=== PATIENT | male | born 1990 | race Caucasian/White ===

== ENCOUNTER 2021-06-09 12:10 | Emergency (ER) | payer OTHER ==
[~2021-06-09] VITALS: Ht 175.3 cm; Wt 161.5 kg
[2021-06-09 17:19] LABS: BASO # 0.1 10^3/uL (0.0-0.2); BASO % 0.5 % (0.0-1.0); EOS # 0.1 10^3/uL (0.0-0.5); EOS % 0.5 % (0.0-3.0); HEMATOCRIT 48.3 % (42.0-52.0); LYMPH # 3.5 10^3/uL (1.5-5.0); MEAN CORPUSCULAR HEMOGLOBIN 31.1 pg (27.0-33.0); MEAN CORPUSCULAR HGB CONC 33.1 g/dl (32.0-36.5); MEAN CORPUSCULAR VOLUME 93.8 fl (80.0-96.0); MONO # 0.5 10^3/uL (0.0-0.8); MONO % 4.9 % (2.0-8.0); NEUTROPHILS # 5.1 10^3/uL (1.5-8.5); NEUTROPHILS % 55.8 % (36.0-66.0); PLATELET COUNT, AUTOMATED 196 10^3/uL (150-450); RED BLOOD COUNT 5.15 10^6/uL (4.30-6.10); WHITE BLOOD COUNT 9.1 10^3/uL (4.0-10.0)
[2021-06-09 17:23] LABS: AMORPHOUS SEDIMENT SMALL (NEGATIVE); APPEARANCE, URINE CLOUDY (CLEAR); BACTERIA, URINE AUTO NEGATIVE (NEGATIVE); BILIRUBIN, URINE AUTO NEGATIVE (NEGATIVE); BLOOD, URINE BLOOD 1+ (NEGATIVE); COLOR, URINE YELLOW (YELLOW); GLUCOSE, URINE (UA) AUTO NEGATIVE (NEGATIVE); KETONE, URINE AUTO NEGATIVE (NEGATIVE); LEUKOCYTE ESTERASE, URINE AUTO NEGATIVE (NEGATIVE); MUCUS, URINE SMALL (NEGATIVE); NITRITE, URINE AUTO NEGATIVE (NEGATIVE); PROTEIN, URINE AUTO 1+ mg/dL (NEGATIVE); RBC, URINE AUTO 98 /HPF (0-3); SQUAMOUS EPITHELIAL CELL UR AU 0 /HPF (0-6); WBC, URINE AUTO 0 /HPF (0-3)
[2021-06-09] MEDS ORDERED: ONDANSETRON 4 MG ORAL DISINTEGRATING TAB PO ONE (17:30)
[2021-06-09] MEDS ORDERED: IBUPROFEN 800 MG TAB PO ONE (17:30)
[2021-06-09 17:40] LABS: ALBUMIN 3.9 GM/DL (3.2-5.2); ALT/SGPT 153 U/L (12-78); BILIRUBIN,DIRECT 0.2 MG/DL (0.0-0.2); BILIRUBIN,TOTAL 0.7 MG/DL (0.2-1.0); BLOOD UREA NITROGEN 9 MG/DL (7-18); CALCIUM LEVEL 9.7 MG/DL (8.5-10.1); CARBON DIOXIDE LEVEL 29 MEQ/L (21-32); CHLORIDE LEVEL 107 MEQ/L (98-107); CREATININE FOR GFR 0.88 MG/DL (0.70-1.30); GLOMERULAR FILTRATION RATE > 60.0 (>60); GLUCOSE, FASTING 107 MG/DL (70-100); LIPASE 138 U/L (73-393); POTASSIUM SERUM 3.9 MEQ/L (3.5-5.1); SODIUM LEVEL 141 MEQ/L (136-145); TOTAL PROTEIN 8.1 GM/DL (6.4-8.2)
--- OUTSIDE RECORDS SUMMARY | 2021-06-09 18:37 | CCD ---
Author Author [facility] Organization [facility] Address Unknown Phone Unavailable Care Team Providers Care Territory Outside Sales Manager Name Role Phone Gianna Vila Unavailable Unavailable VilaGianna PA Unavailable Unavailable VilaGianna PA Unavailable Unavailable VilaGianna PA Unavailable Unavailable VilaGianna PA Unavailable Unavailable VilaGianna PA Unavailable Unavailable VilaGianna PA Unavailable Unavailable VilaGianna PA Unavailable Unavailable VilaGianna PA Unavailable Unavailable VilaGianna PA Unavailable Unavailable FEMIMARIA DEL CARMEN PA Unavailable Unavailable FEMI, MARIA DEL CARMEN PA Unavailable Unavailable FEMI, MARIA DEL CARMEN PA Unavailable Unavailable FEMI, MARIA DEL CARMEN PA Unavailable Unavailable FEMI, MARIA DEL CARMEN PA Unavailable Unavailable FEMI, MARIA DEL CARMEN PA Unavailable Unavailable FEMI, MARIA DEL CARMEN PA Unavailable Unavailable FEMI, MARIA DEL CARMEN PA Unavailable Unavailable FEMI, MARIA DEL CARMEN PA Unavailable Unavailable FEMI, MARIA DEL CARMEN PA Unavailable Unavailable FEMI, MARIA DEL CARMEN PA Unavailable Unavailable FEMI, MARIA DEL CARMEN PA Unavailable Unavailable FEMI, MARIA DEL CARMEN PA Unavailable Unavailable FEMI, MARIA DEL CARMEN PA Unavailable Unavailable FEMI, MARIA DEL CARMEN PA Unavailable Unavailable FEMI, MARIA DEL CARMEN PA Unavailable Unavailable FEMI, MARIA DEL CARMEN PA Unavailable Unavailable FEMI, MARIA DEL CARMEN PA Unavailable Unavailable FEMI, MARIA DEL CARMEN PA Unavailable Unavailable FEMI, MARIA DEL CARMEN PA Unavailable Unavailable FEMI, MARIA DEL CARMEN PA Unavailable Unavailable FEMI, MARIA DEL CARMEN PA Unavailable Unavailable FEMI, MARIA DEL CARMEN PA Unavailable Unavailable FEMI, MARIA DEL CARMEN PA Unavailable Unavailable FEMI, MARIA DEL CARMEN PA Unavailable Unavailable FEMI, MARIA DEL CARMEN PA Unavailable Unavailable FEMI, MARIA DEL CARMEN PA Unavailable Unavailable FEMI, MARIA DEL CARMEN PA Unavailable Unavailable FEMI, MARIA DEL CARMEN PA Unavailable Unavailable FEMI, MARIA DEL CARMEN PA Unavailable Unavailable FEMI, MARIA DEL CARMEN PA Unavailable Unavailable FEMI, MARIA DEL CARMEN PA Unavailable Unavailable FEMI, MARIA DEL CARMEN PA Unavailable Unavailable FEMI, MARIA DEL CARMEN PA Unavailable Unavailable FEMI, MARIA DEL CARMEN PA Unavailable Unavailable FEMI, MARIA DEL CARMEN PA Unavailable Unavailable Re-disclosure Warning The records that you are about to access may contain information from federally-assisted alcohol or drug abuse programs. If such information is present, then the following federally mandated warning applies: This information has been disclosed to you from records protected by federal confidentiality rules (42 CFR part 2). The federal rules prohibit you from making any further disclosure of this information unless further disclosure is expressly permitted by the written consent of the person to whom it pertains or as otherwise permitted by 42 CFR part 2. A general authorization for the release of medical or other information is NOT sufficient for this purpose. The Federal rules restrict any use of the information to criminally investigate or prosecute any alcohol or drug abuse patient.The records that you are about to access may contain highly sensitive health information, the redisclosure of which is protected by Article 27-F of the [facility] Public Health law. If you continue you may have access to information: Regarding HIV / AIDS; Provided by facilities licensed or operated by the [facility] Office of Mental Health; or Provided by the [facility] Office for People With Developmental Disabilities. If such information is present, then the following [facility] mandated warning applies: This information has been disclosed to you from confidential records which are protected by state law. State law prohibits you from making any further disclosure of this information without the specific written consent of the person to whom it pertains, or as otherwise permitted by law. Any unauthorized further disclosure in violation of state law may result in a fine or senior living sentence or both. A general authorization for the release of medical or other information is NOT sufficient authorization for further disc losure. Family History Family Member Name Family Member Gender Family Member Status Date o f Status Description Data Source(s) Unknown Female Problem [facility] ([facility] Encounters Encounter Providers Location Date Indications Data Source(s ) Outpatient Attender: MARIA DEL CARMEN Rollins Almanzar Aryana ry 06/09/2021 10:55:00 AM EDT [facility] ([facility]) Outpatient Attender: Meron Almanzar Prim lavell 05/24/2020 04:00:00 PM EDT [facility] ([facility]) Medications No Information Insurance Providers Payer name Policy type / Coverage type Policy ID Covered green party ID Covered green party's relationship to knight Policy Knight Plan Information [facility] [id number] SP [id number] [facility] [id number] FA2 [id number] [facility] Community Plan Commercial [id number] Self Problems, Conditions, and Diagnoses No Information Surgeries/Procedures Procedure Description Date Indications Data Source(s) OFFICE OUTPATIENT VISIT 15 MINUTES 06/09/2021 12:00:00 AM EDT [facility] ([facility], [facility]) SIMPLE REPAIR SCALP/NECK/AX/GENIT/TRUNK 2.5CM/< 2019 12:00:00 AM EDT [facility] ([facility], [facility]) Results No Information Social History No Information Vital Signs ID Date Data Source UNK Name Value Range Interpretation Code Description Data Source(s) Systolic blood pressure 188 mm[Hg] 188 mm[Hg] M EDENT ([facility], [facility]) Diastolic blood pressure 102 mm[Hg] 102 mm[Hg] [facility] ([facility], [facility]) Heart rate 89 /min 89 /min [facility] ([facility], [facility]) Respiratory rate 18 /min 18 /min [facility] ( [facility], [facility]) Oxygen saturation in Arterial blood by Pulse oximetry 98 % 98 % [facility] ([facility], [facility]) Body temperature 98.4 [degF] 98.4 [degF] MEDENT ([facility], [facility]) Body weight 350.00 [lb_av] 350.00 [lb_av] MEDEN T ([facility], [facility]) ? Body height 68 [in_i] 68 [in_i] [facility] ([facility], [facility]) 5'8" Body mass index (BMI) [Ratio] 53.2 kg/m2 53.2 k g/m2 [facility] ([facility], [facility]) Systolic blood pressure 190 mm[Hg] 190 mm[Hg] M EDENT ([facility], [facility]) x 3 Diastolic blood pressure 130 mm[Hg] 130 mm[Hg] [facility] x 3 Heart rate 78 /min 78 /min [facility] ([facility], [facility]) Respiratory rate 16 /min 16 /min [facility] ( [facility], [facility]) Oxygen saturation in Arterial blood by Pulse oximetry 99 % 99 % [facility] ([facility], [facility]) Body temperature 98.7 [degF] 98.7 [degF] [facility] ([facility], [facility]) Body weight 300.00 [lb_av] 300.00 [lb_av] MEDEN T ([facility], [facility]) Body height 68 [in_i] 68 [in_i] [facility] ([facility], [facility]) 5'8" Body mass index (BMI) [Ratio] 45.6 kg/m2 45.6 k g/m2 [facility] ([facility], [facility])
--- NOTE | 2021-06-09 18:44 | REPVR ---
PROCEDURE INFORMATION: Exam: CT Abdomen And Pelvis Without Contrast Exam date and time: 06/09/2021 5:30 PM Age: 31 years old Clinical indication: Abdominal pain; Flank; Right; Additional info: Right flank pain, renal colic TECHNIQUE: Imaging protocol: Computed tomography of the abdomen and pelvis without contrast. Radiation optimization: All CT scans at this facility use at least one of these dose optimization techniques: automated exposure control; mA and/or kV adjustment per patient size (includes targeted exams where dose is matched to clinical indication); or iterative reconstruction. COMPARISON: No relevant prior studies available. FINDINGS: Lungs: No lesions of the lung bases. Liver: Probable fatty infiltration of the liver. Gallbladder and bile ducts: The gallbladder is unremarkable. Pancreas: The pancreas is normal. Spleen: The spleen is unremarkable. Adrenal glands: The adrenal glands are unremarkable. Kidneys and ureters: There are punctate calcifications in both kidneys. There is mild dilatation of the right intrarenal collecting system and proximal right ureter to just below the level of the right kidney where a punctate calcification is seen in the right ureter on the axial images series 201, image 90, series 202, images 69, 70, series 203, image 75 which appears to measures 6.3 mm in length on the sagittal and coronal images. Stomach and bowel: There is no evidence of intestinal obstruction. Appendix: No evidence of appendicitis. Intraperitoneal space: Unremarkable. No free air. No significant fluid collection. Vasculature: The aorta is unremarkable. Lymph nodes: Unremarkable. No enlarged lymph nodes. Urinary bladder: The urinary bladder is decompressed and therefore not well assessed. Reproductive: Unremarkable as visualized. 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 Soft tissues: Unremarkable. IMPRESSION: There appears to be a linear calcification in the proximal right ureter measuring 6.3 mm in length. This may actually represent 2 or 3 adjacent smaller calculi. Punctate calculi are seen in both kidneys. There is mild right hydronephrosis and hydroureter to the level of the obstructing calculus. Electronically signed by: Shanti Rajan On 06/09/2021 18:44:24 PM
[2021-06-09] MEDS ORDERED: ONDA4TAB6 PO (19:11)
[2021-06-09] MEDS ORDERED: KETO10TAB PO (19:11)
[2021-06-09] MEDS ORDERED: FLOM0.4C39 PO (19:11)
[2021-06-09] MEDS ORDERED: HYDR-3713 PO (19:11)
[2021-06-09 19:17] VITALS: BP 160/90
== END 2021-06-09 19:41 | disposition home or self-care (01) ==
LOC: M ED 12:10
DX: N20.1 Calculus of ureter (principal); E86.0 Dehydration; K76.0 Fatty (change of) liver, not elsewhere classified
CPT/HCPCS: 36415; 74176; 80048; 80076; 81001; 83690; 85025; 99284; Q0162

== ENCOUNTER 2021-07-14 23:07 | Inpatient (IN) | payer OTHER ==
[~2021-07-14] VITALS: Ht 172.7 cm; Wt 160.8 kg
[~2021-07-14 23:07] MED LIST: FLOM0.4C39 PO; HYDR-3713 PO; KETO10TAB PO; ONDA4TAB6 PO
[2021-07-14] MEDS ORDERED: dexameTHASONE 20MG/5ML VIAL (J1100 PER 1MG) IV ONE (23:40)
[2021-07-15] VITALS (10 sets, daily range): BP systolic 119–137; BP diastolic 61–78
[2021-07-15] MEDS ORDERED: ISOVUE-370 76% 100ML VIAL As Ordered ONE ×2 (00:16→04:40)
[2021-07-15 00:47] LABS: ABG BASE EXCESS 1.6 (-2.0-2.0); ABG HCO3 24.7 MEQ/L (22.0-26.0); ABG O2 SATURATION 96.2 % (95.0-99.0); ABG PARTIAL PRESSURE CO2 34.5 mmHg (35.0-45.0); ABG STANDARD HCO3 25.8 MEQ/L (22.0-26.0); ABG TOTAL CO2 25.7 MEQ/L (22.0-29.0); ABG pH (ARTERIAL) 7.472 UNITS (7.350-7.450)
[2021-07-15] MEDS: COMBIVENT RESPIMAT 100-20MCG INHALER 4GM INH PRN ×2 (00:54→00:55)
--- OUTSIDE RECORDS SUMMARY | 2021-07-15 04:07 | CCD ---
Author Author [facility] Organization [facility] Address Unknown Phone Unavailable Care Team Providers Care Chemist Proteins Name Role Phone Gianna Vila Unavailable Unavailable VilaGianna PA Unavailable Unavailable VilaGianna PA Unavailable Unavailable VilaGianna PA Unavailable Unavailable VilaGianna PA Unavailable Unavailable VilaGianna PA Unavailable Unavailable VilaGianna PA Unavailable Unavailable VilaGianna PA Unavailable Unavailable VilaGianna PA Unavailable Unavailable VilaGianna PA Unavailable Unavailable FEMIMARIA DEL CARMEN PA Unavailable Unavailable FEMIMARIA DEL CARMEN PA Unavailable Unavailable FEMIMARIA DEL CARMEN PA Unavailable Unavailable FEMIMARIA DEL CARMEN PA Unavailable Unavailable FEMIMARIA DEL CARMEN PA Unavailable Unavailable FEMIMARIA DEL CARMEN PA Unavailable Unavailable FEMIMARIA DEL CARMEN PA Unavailable Unavailable FEMI MARIA DEL CARMEN PA Unavailable Unavailable FEMI MARIA DEL CARMEN PA Unavailable Unavailable FEMIMARIA DEL CARMEN PA Unavailable Unavailable FEMIMARIA DEL CARMEN PA Unavailable Unavailable FEMI MARIA DEL CARMEN PA Unavailable Unavailable FEMI MARIA DEL CARMEN PA Unavailable Unavailable FEMI, MARIA DEL CARMEN PA Unavailable Unavailable FEMI, MARIA DEL CARMEN PA Unavailable Unavailable FEMI, MARIA DEL CARMEN PA Unavailable Unavailable FEMI MARIA DEL CARMEN PA Unavailable Unavailable FEMI MARIA DEL CARMEN PA Unavailable Unavailable FEMI MARIA DEL CARMEN PA Unavailable Unavailable FEMI, [...] is protected by Article 27-F of the [facility] Public Health law. If you continue you may have access to information: Regarding HIV / AIDS; Provided by facilities licensed or operated by the [facility] Office of Mental Health; or Provided by the [facility] Office for People With Developmental Disabilities. If such information is present, then the following [facility] mandated warning applies: This information has [...] law may result in a fine or care home sentence or both. A general authorization for [...] ) Outpatient Attender: MARIA DEL CARMEN Rollins Yohan Baezaa ry 06/09/2021 10:55:00 AM EDT [facility] ([facility]) Outpatient Attender: Meron Almanzar Prim lavell 05/24/2020 04:00:00 PM EDT [facility] ([facility]) Medications Medication Brand Name Start Date Product Form Dose Route Admi nistrative Instructions Pharmacy Instructions Status Indications Reaction Description Data Source(s) Ondansetron 4 MG Disintegrating Oral Tablet ONDANSETRON 06/09/2021 12:00:00 AM EDT tablet,disintegrating 16 DISSOLVE 1 TABLET ON THE TONGUE EVERY 6-8 HOURS NEEDED FOR NAUSEA/VOMITING DISSOLVE 1 TABLET ON THE TONGUE EVERY 6- 8 HOURS NEEDED FOR NAUSEA/VOMITING SOLD: 06/09/2021 [facility] 0.4 mg 06/09/2021 12:00:00 AM EDT capsule 10 TAKE ONE CAPSULE BY MOUTH ONCE A DAY 1/2 HOUR FOLLOWING SAME MEAL EACH DAY TAKE ONE CAPSULE BY MOUTH ONCE A DAY 1/2 HOUR FOLLOWING SAME MEAL EACH DAY SOLD: 06/09/2021 [facility] Acetaminophen 325 MG / Hydrocodone Bitartrate 5 MG Ora l Tablet 5-325 mg HYDROCODONE/ACETAMINOPHEN 06/09/2021 12:00:00 AM EDT tablet 6 TAKE ONE TABLET BY MOUTH EVERY 6 HOURS NEEDED FOR PAIN MAXIMUM DAILY DOSE = 4 TABLETS TAKE ONE TABLET BY MOUTH EVERY 6 HOURS NEEDED FOR PAIN MAXIMUM DAILY DOSE = 4 TABLETS SOLD: 06/09/2021 [facility] 10 mg 06/09/2021 12:00:00 AM EDT tablet 20 TAKE ONE TABLET BY MOUTH EVERY 6 HOURS NEEDED FOR PAIN TAKE ONE TABLET BY MOUTH EVERY 6 HOURS A S NEEDED FOR PAIN SOLD: 06/09/2021 [facility] Insurance Providers Payer name Policy type / Coverage type Policy ID Covered libertarian ID Covered libertarian's relationship to knight Policy Knight Plan Information [facility] PLAN [facility] [id number] [facility] [id number] [facility] [id number] FA2 [id number] [facility] Commercial [id number] Self Problems, Conditions, and Diagnoses No Information Surgeries/Procedures Procedure Description Date Indications Data Source(s) OFFICE OUTPATIENT VISIT 15 MINUTES 06/09/2021 12:00:00 AM EDT [facility] ([facility], [facility]) SIMPLE REPAIR SCALP/NECK/AX/GENIT/TRUNK 2.5CM/< 2019 12:00:00 AM EDT [facility] ([facility], [facility]) Results No Information Social History No Information Vital Signs ID Date Data Source UNK Name Value Range Interpretation Code Description Data Source(s) Systolic blood pressure 188 mm[Hg] 188 mm[Hg] M EDENT ([facility], [facility]) Diastolic blood pressure 102 mm[Hg] 102 mm[Hg] [facility] ([facility], [facility]) Heart rate 89 /min 89 /min [facility] ([facility], [facility]) Respiratory rate 18 /min 18 /min [facility] ( [facility], [facility]) Oxygen saturation in Arterial blood by Pulse oximetry 98 % 98 % [facility] ([facility], [facility]) Body temperature 98.4 [degF] 98.4 [degF] [facility] ([facility], [facility]) Body weight 350.00 [lb_av] 350.00 [lb_av] MEDEN T ([facility], [facility]) ? Body height 68 [in_i] 68 [in_i] [facility] ([facility], [facility]) 5'8" Body mass index (BMI) [Ratio] 53.2 kg/m2 53.2 k g/m2 [facility] ([facility], [facility]) Systolic blood pressure 190 mm[Hg] 190 mm[Hg] M EDENT ([facility], [facility]) x 3 Diastolic blood pressure 130 mm[Hg] 130 mm[Hg] [facility] ([facility], [facility]) x 3 Heart rate 78 /min 78 /min [facility] ([facility], [facility]) Respiratory rate 16 /min 16 /min [facility] ( [facility], [facility]) Oxygen saturation in Arterial blood by Pulse oximetry 99 % 99 % [facility] ([facility], [facility]) Body temperature 98.7 [degF] 98.7 [degF] [facility] ([facility]) Body weight 300.00 [lb_av] 300.00 [lb_av] [facility] ([facility]) Body height 68 [in_i] 68 [in_i] [facility] ([facility] 5'8" Body mass index (BMI) [Ratio] 45.6 kg/m2 45.6 k g/m2 [facility] ([facility])
[2021-07-15 05:07] LABS: INR 1.22; PROTHROMBIN TIME 15.8 SECONDS (12.7-14.5)
[2021-07-15 05:08] LABS: PARTIAL THROMBOPLASTIN TIME 34.1 SECONDS (25.9-37.0)
[2021-07-15 05:58] LABS: ALBUMIN 3.2 GM/DL (3.2-5.2); BILIRUBIN,DIRECT 0.4 MG/DL (0.0-0.2); BILIRUBIN,TOTAL 0.8 MG/DL (0.2-1.0); C REACTIVE PROTEIN QUANTITATIV 3.32 MG/DL (0.00-0.30); TOTAL PROTEIN 7.4 GM/DL (6.4-8.2)
--- NOTE | 2021-07-15 06:01 | REPVR ---
PROCEDURE INFORMATION: Exam: CTA Chest With Contrast Exam date and time: 07/14/2021 11:36 PM Age: 31 years old Clinical indication: Cough; Patient HX: Covid; Additional info: Rule out pe TECHNIQUE: Imaging protocol: Computed tomographic angiography of the chest with contrast. 3D rendering (Not supervised by radiologist): MIP and/or 3D reconstructed images were created by the technologist. Radiation optimization: All CT scans at this facility use at least one of these dose optimization techniques: automated exposure control; mA and/or kV adjustment per patient size (includes targeted exams where dose is matched to clinical indication); or iterative reconstruction. Contrast material: ISO; Contrast volume: 75 ml; Contrast route: INTRAVENOUS (IV); COMPARISON: CT ABD PELVIS W/O CONTRAST 06/09/2021 5:49 PM FINDINGS: Pulmonary arteries: The pulmonary trunk is dilated measuring 4 centimetres. No filling defect seen in the pulmonary arteries through the segmental branches. Study is suboptimal for the evaluation of distal segmental and subsegmental branches. Aorta: Unremarkable. No aortic aneurysm. No aortic dissection. Lungs: There is extensive diffuse bilateral patchy ground-glass infiltrates with central and peripheral distribution coupled with atelectatic changes and low lung volume. Pleural spaces: Unremarkable. No pneumothorax. No pleural effusion. Heart: The heart is normal in size. There is trace pericardial effusion at the base of the heart. Lymph nodes: There are some prominent mediastinal lymph nodes for example a prevascular lymph node measuring 2.0 x 1.3 cm on axial image 54. Smaller shotty lymph nodes seen in the pretracheal and precarinal space. There is an enlarged subcarinal lymph node measuring 4.1 x 3.4 centimetres. Liver: The partially imaged liver appear to be enlarged and severely hypoattenuated. Spleen: The spleen is enlarged measuring up to 17 centimetres. Bones/joints: Unremarkable. No acute fracture. Soft tissues: Unremarkable. IMPRESSION: 1. No CT evidence of pulmonary embolism or right heart strain. 2. Extensive diffuse bilateral central and peripheral ground-glass infiltrates.Imaging features can be seen with COVID-19 pneumonia, though are nonspecific and can occur with a variety of infectious and noninfectious processes. (Reference: Almanzar) 3. Dilated pulmonary trunk suggestive of pulmonary hypertension. 4. Few enlarged in few shotty mediastinal lymph nodes likely reactive. Largest lymph node is subcarinal measuring 4.1 x 3.4 cm for which follow-up is suggested. 5. Hepatosplenomegaly with severe fatty infiltration of the liver. REFERENCES: Yohan Alcantar, et al., Radiological Society of [place] Expert Consensus Statement on Reporting Chest CT Findings Related to COVID-19. Endorsed by the Society of Thoracic Radiology, the [place] [employer], and RSNA. Published November 01, 2019. The Electronically signed by: Valentino French On 07/15/2021 06:00:58 AM
[2021-07-15] MEDS: ENOXAPARIN 40MG/0.4ML SYRINGE (J1650 PER 10MG) SC SCH ×2 (09:00→19:40)
[2021-07-15] MEDS: dexameTHASONE 4 MG/ML 1ML VIAL (J1100 PER 1MG) IV SCH (09:00)
[2021-07-15] MEDS: ASPIRIN 81MG ENTERIC TABLET PO SCH (09:00)
[2021-07-15] MEDS ORDERED: HOME MED LIST COMPLETE! XX SCH (09:15)
[2021-07-15] MEDS ORDERED: REMDESIVIR 200 MG in NS 250 ML IV ONE ×2 (09:40→18:00)
--- OUTSIDE RECORDS SUMMARY | 2021-07-15 09:44 | CCD ---
Author Author [facility] Organization [facility] Address Unknown Phone Unavailable Care Team Providers Care Delivery Merchandiser Name Role Phone Gianna Vila Unavailable Unavailable [...] is protected by Article 27-F of the [facility] Public Health law. If you continue you may have access to information: Regarding HIV / AIDS; Provided by facilities licensed or operated by the [facility] Office of Mental Health; or Provided by the [facility] Office for People With Developmental Disabilities. If such information is present, then the following [facility] mandated warning applies: This information has [...] law may result in a fine or skilled nursing sentence or both. A general authorization for [...] Baezaa ry 06/09/2021 10:55:00 AM EDT [facility] ([facility]) Outpatient Attender: Meron Almanzar Prim lavell 05/24/2020 04:00:00 PM EDT [facility] ([facility]) Medications Medication Brand [...] type / Coverage type Policy ID Covered constitution party ID Covered constitution party's relationship to knight Policy Knight Plan Information [facility] [id number] [facility] [id number] [facility] [id number] FA2 [id number] [facility] [id number] Self Problems, Conditions, and Diagnoses No Information Surgeries/Procedures Procedure Description Date Indications Data Source(s) OFFICE OUTPATIENT VISIT 15 MINUTES 06/09/2021 12:00:00 AM EDT [facility] ([facility], [facility]) SIMPLE REPAIR SCALP/NECK/AX/GENIT/TRUNK 2.5CM/< 2019 12:00:00 AM EDT [facility] ([facility], [facility]) Results No Information Social History No Information Vital Signs ID Date Data Source UNK Name Value Range Interpretation Code Description Data Source(s) Systolic blood pressure 188 mm[Hg] 188 mm[Hg] M EDENT ([facility], [facility]) Diastolic blood pressure 102 mm[Hg] 102 mm[Hg] [facility] ([facility], [facility]) Heart rate 89 /min 89 /min [facility] ([facility], [facility]) Respiratory rate 18 /min 18 /min [facility] ( [facility], [facility]) Oxygen saturation in Arterial blood by Pulse oximetry 98 % 98 % [facility] ([facility], [facility]) Body temperature 98.4 [degF] 98.4 [degF] [facility] ([facility], [facility]) Body weight 350.00 [lb_av] 350.00 [lb_av] MEDEN T ([facility], [facility]) ? Body height 68 [in_i] 68 [in_i] [facility] ([facility], [facility]) 5'8" Body mass index (BMI) [Ratio] 53.2 kg/m2 53.2 k g/m2 [facility] ([facility], [facility]) Systolic blood pressure 190 mm[Hg] 190 mm[Hg] M EDENT ([facility], [facility]) x 3 Diastolic blood pressure 130 mm[Hg] 130 mm[Hg] [facility] ([facility], [facility]) x 3 Heart rate 78 /min 78 /min [facility] ([facility], [facility]) Respiratory rate 16 /min 16 /min [facility] ( [facility], [facility]) Oxygen saturation in Arterial blood by Pulse oximetry 99 % 99 % [facility] ([facility], [facility]) Body temperature 98.7 [degF] 98.7 [degF] [facility] ([facility]) Body weight 300.00 [lb_av] 300.00 [lb_av] [facility] ([facility]) Body height 68 [in_i] 68 [in_i] [facility] ([facility]) 5'8" Body mass index (BMI) [Ratio] 45.6 kg/m2 45.6 k g/m2 [facility] ([facility])
--- NOTE | 2021-07-15 10:07 | REP ---
INDICATION: sob, eval pneumothorax. COMPARISON: CT 07/15/2021. TECHNIQUE: Single portable AP view of the chest was performed. FINDINGS: There is poor ventilation with mild elevation of the right hemidiaphragm. There are diffuse bilateral infiltrates. The cardiomediastinal silhouette is mildly magnified. The visualized osseous structures are unremarkable. IMPRESSION: Diffuse bilateral infiltrates with poor ventilation. <Electronically signed by Tj Kilpatrick > 07/15/21 1004
--- NOTE | 2021-07-15 11:19 | CR.PDOC ---
General Date of Consultation: Jul 15, 2021 Referring Provider: GWENDOLYN LOYA MD Primary Care Physician: Lee Ho PA-C Attending Physician: HUYEN FLETCHER MD Consultation REASON FOR CONSULTATION/CHIEF COMPLAINT: Worsening hypoxia despite high flow nasal cannula in pt with Covid pneumonia HISTORY OF PRESENT ILLNESS: Augie is a pleasant 31yo male w/ notable known PMHx of morbid obesity who was driven to the [facility] ED late in the evening of 07/14/21 by his primarily due to worsening SOB and hypoxia (on home O2 sensor). Patient's story began on Wednesday, 07/07 in the form of headache with mild shortness of breath. The patient lives with his and 3 children whom pt reports all have tested positive for the novel coronavirus. In the context of his entire household being positive for Covid, plus the aforementioned symptoms that arose on 07/07, he took a home Covid test that was positive. As result, he began using a home O2 sensor to monitor his oxygen saturations. Of note, the patient is unvaccinated against the novel coronavirus. He reports that his saturations remained relatively stable in the mid to upper 90s throughout last week. He does report an accompanying productive cough of clear sputum, a slight loss of both taste and smell, intermittent nausea with no emesis, and nonbloody diarrhea. On 07/14, patient reports towards the middle of the day into the afternoon, his shortness of breath increased in intensity and was present both with activity and at rest. He checked his oxygen saturations and they dropped down to 80%. He also had some associated new onset of mild pleuritic chest pain and subjective fever. As the afternoon progressed into the early evening, his dyspnea continued to worsen and a repeat O2 saturation was 70%. Is at this point that the patient was driven to the ED for further evaluation. In the ED, patient had a low fever (T1 100.4), initial O2 sat was 70%, he was hypertensive (189/81), tachycardic (HR 120), and tachypneic (RR 30). A nonrebreather was applied at 10 L, and his saturations remained between 89-95%. Shortly before 6 AM on 07/15, the patient was switched over to Vapotherm at 25 L and 100% FiO2; his saturations remained in the low to mid 90s with Vapotherm. Imaging showed no pulmonary embolism or right heart strain, but dilated pulmonary trunk consistent with pulmonary hypertension, bilateral groundglass opacities, mild left pleural effusion, fatty infiltration of liver with hepatosplenomegaly. Initial labs showed elevated inflammatory markers, no CBC was obtained, as well as unremarkable electrolytes and normal kidney functioning. Initial ABG (pH 7.472/PCO2 34.5/PO2 78/bicarb 26) showed slight respiratory alkalosis. Patient was subsequently admitted primarily for acute hypoxemic respiratory failure in the setting of Covid pneumonia. The admitting service then consulted the pulmonary team for further evaluation of patient in setting of worsening hypoxia requiring greater oxygen support with Covid pneumonia. ALLERGIES: Please see below. HOME MEDICATIONS: Please see below. 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 As stated in HPI, he is unvaccinated against the novel coronavirus as is his who is actively breast-feeding. 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 He has however not worked over the past 2 weeks as part of a prophylactic self quarantine with his and children's positive Covid results. Patient denies any current or former use of tobacco products. He also has not had any alcohol in 9 years, and denies any former heavy alcohol use/abuse. He denies any current or former illicit or IV drug use. REVIEW OF SYSTEMS: CONSTITUTIONAL: Reports intermittent mild subjective fevers, chronic moderate diaphoresis, and diffuse moderate weakness. CARDIOVASCULAR: Denies chest pain, chest pressure, or palpitations. RESPIRATORY: Reports mild dyspnea last week that has progressed over the past 36 hours in intensity, now occurring both at rest and with activity. Dyspnea has improved since coming to the ED. Pleuritic chest pain is also resolved. Reports productive cough of clear sputum with no hemoptysis. GENITOURINARY: Denies dysuria or hematuria. MUSCULOSKELETAL: Reports generalized weakness with no specific focal areas of myalgias or arthralgias. Denies bilateral lower extremity swelling or myalgias. GASTROINTESTINAL: Reports some intermittent mild nausea without emesis, as well as nonbloody diarrhea over the past week. Denies abdominal pain. SKIN: Denies increased warmth or erythema of skin overlying bilateral lower extremities. NEUROLOGICAL: Reports mild loss of both taste and smell last week. ENDOCRINE: Reports chronically feeling warm with associated diaphoresis. HEMATOLOGIC: Denies any recent easy bleeding or bruising. LYMPHATIC: Denies any recent lumps or bumps. PHYSICAL EXAMINATION: VITAL SIGNS: Please see below. GENERAL APPEARANCE: Pleasant young morbidly obese white male seated in bedside wheelchair. Wearing high flow nasal cannula Vapotherm. HEENT: Normocephalic, atraumatic. Noninjected, anicteric sclera. PERRLA. Facial sweating present. Patient is wearing Vapotherm high flow on oxygen. Neck: Wide. No supraclavicular or cervical lymphadenopathy is appreciated. Difficult to assess for JVD due to habitus. RESPIRATORY: Currently saturating between 93-94% on 40 L and 100% FiO2 Vapotherm. Cough is elicited with deep inspiration and as a result tidal volumes are shallower. No significant adventitious breath sounds are appreciated. No accessory muscle use appreciated. No conversational dyspnea. Symmetric chest expansion. CARDIOVASCULAR: Regular rate, regular rhythm. Normal S1, S2. No significant murmurs or rubs are appreciated but accuracy compromised with background respiratory/Vapotherm sounds. 2+ radial pulses bilaterally. No signs of clubbing or cyanosis. No delayed capillary refill. ABDOMEN: Morbidly obese. Hypoactive bowel sounds throughout. There is no guarding or rigidity. Soft, nontender. Difficult to assess for hepatosplenomegaly or palpable masses due to habitus. Negative Kelsey sign. EXTREMITIES: There is no bilateral pitting edema of lower extremities. No calf tenderness bilaterally. NEUROLOGICAL: No gross focal neurologic deficits appreciated. Nondysarthric speech. PSYCHIATRIC: Pleasant mood. Appropriate appearing affect. LABORATORY DATA: Please see below. Impression: This is a 31-year-old male with no known significant past medical history other than morbid obesity who presented on the evening of 07/14 to the ED with worsening dyspnea both at rest and with activity in the setting of Covid positive test result and worsening hypoxia on home O2 sensor. He was admitted for acute hypoxemic respiratory failure requiring significant supplementary oxygen support and continued monitoring. Assessment: The most critical issues requiring my immediate attention at bedside are: 1. Acute hypoxemic respiratory failure likely 2/2 Covid pneumonia with possible superimposed bacterial pneumonia requiring high flow O2 (Vapotherm) 2. High suspicion for undiagnosed obstructive sleep apnea 3. Morbid obesity 4. Elevated inflammatory markers consistent with cytokine storm Plan: * admit to ICU for closer monitoring of respiratory status * Can start CPAP pressure 10 4hrs on 4 hrs off as tolerated, and CPAP qhs. Can alternate with vapotherm 40 L 100% FiO2 Vapotherm and titrate FiO2 down to maintain a goal O2 saturation of 88-96%. * Due to suspected MANDY would benefit from Cpap qhs * With low fever upon admission, consideration for superimposed bacterial pneumonia. * Have ordered CBC as this was not done in the ED to assess for leukocytosis. Recommended to the primary service to obtain blood cultures as well as CAP w/u (urine Legionella, urine strep, mycoplasma), and initiate empiric CAP antimicrobials while obtaining procalcitonin. De-escalate as warranted. * As sxs began 8d ago w/ + test 7d ago, initiate Covid treatment in the form of remdesivir, dexamethasone 6 mg qd (for 10d or until hosp d/c should that occur prior to 10d). Start baricitinib 4mg daily x 14 days or until hospital discharge whichever is shorter. Continue with 40 Lovenox daily for DVT prophylaxis. * Incentive spirometry has been ordered. C/w combivent prn. * Airborne and contact precautions Total critical care time spent was 65 minutes, not including procedures. Vital Signs/I&O Vital Signs Date Time Temp Pulse Resp B/P (MAP) Pulse Ox O2 Delivery O2 Flow Rate FiO2 07/15/21 06:07 83 96 07/15/21 06:01 100.4 158/87 (110) High Flow Cannula 25.0 07/15/21 05:48 100 07/15/21 04:52 28 Laboratory Data Labs 24H Laboratory Tests 2 07/15/21 00:10: Blood Gas Bicarbonate Standard 25.8, Arterial Blood pH 7.472H, Arterial Blood Partial Pressure CO2 34.5L, Arterial Blood Partial Pressure O2 78.0, Arterial Blood Total CO2 25.7, Arterial Blood HCO3 24.7, Arterial Blood Base Excess 1.6, Arterial Blood Oxygen Saturation 96.2 07/15/21 01:13: POC Glucose (Misc Panel) 133H, POC Sodium (Misc Panel) 137, POC Potassium (Misc Panel) 3.9, POC Chloride (Misc Panel) 99, POC Total CO2 (Misc Panel) 26.0, POC Blood Urea Nitrogen (Misc Panel 20, POC Ionized Calcium (Misc Panel) 4.3L, POC Creatinine (Misc Panel) 0.8, POC Hematocrit (Misc Panel) 45.0 07/15/21 04:38: Prothrombin Time 15.8H, Prothromb Time International Ratio 1.22, Activated Partial Thromboplast Time 34.1, Fibrinogen 520H, D-Dimer, Quantitative 636.00H, Ferritin 2683H, Total Bilirubin 0.8, Direct Bilirubin 0.4H, Aspartate Amino Transf (AST/SGOT) 183H, Alanine Aminotransferase (ALT/SGPT) 135H, Alkaline Phosphatase 66, Lactate Dehydrogenase 587H, Total Creatine Kinase 1953H, Troponin I High Sensitivity 16.0, C-Reactive Protein, Quantitative 3.32H, Total Protein 7.4, Albumin 3.2, Albumin/Globulin Ratio 0.8 Allergies Coded Allergies: No Known Allergies (Unverified , 06/09/21) Home Medications No Active Prescriptions or Reported Meds GME ATTESTATION GME ATTESTATION My faculty preceptor for this patient encounter was physically present during the encounter and was fully available. All aspects of the patient interview, examination, medical decision making process, and medical care plan development were reviewed and approved by the faculty preceptor. The faculty preceptor is aware and concurs with the plan as stated in the body of this note and will attest to such by his/her cosignature. CALEB APODACA D.O. Jul 15, 2021 11:19 HUYEN FLETCHER MD Jul 15, 2021 12:00
[2021-07-15 11:31] LABS: BASO % 0.2 % (0.0-1.0); HEMATOCRIT 44.9 % (42.0-52.0); HEMOGLOBIN 15.3 g/dl (13.5-17.5); LYMPH # 0.7 10^3/uL (1.5-5.0); LYMPH % 15.9 % (24.0-44.0); MEAN CORPUSCULAR HEMOGLOBIN 30.4 pg (27.0-33.0); MEAN CORPUSCULAR HGB CONC 34.1 g/dl (32.0-36.5); MEAN CORPUSCULAR VOLUME 89.3 fl (80.0-96.0); MONO # 0.2 10^3/uL (0.0-0.8); MONO % 3.2 % (2.0-8.0); NEUTROPHILS # 3.7 10^3/uL (1.5-8.5); NEUTROPHILS % 80.3 % (36.0-66.0); PLATELET COUNT, AUTOMATED 176 10^3/uL (150-450); RED BLOOD COUNT 5.03 10^6/uL (4.30-6.10); WHITE BLOOD COUNT 4.7 10^3/uL (4.0-10.0)
--- NOTE | 2021-07-15 14:27 | HPEPDOC ---
[facility] Medical History & Physical Date of Admission Jul 15, 2021 Date of Service: Jul 15, 2021 History and Physical CHIEF COMPLAINT: SOB HISTORY OF PRESENT ILLNESS: 31M with PMHx including morbid obesity, presents for worsening SOB, hypoxia and headache. The patient lives with his and 3 children whom pt reports all h ave tested positive for the novel coronavirus. He took a home Covid test that was positive. As result, he began using a home O2 sensor to monitor his oxygen saturations. He is not vaccinated against COVID-19. He does report an accompanying productive cough of clear sputum, a slight loss of both taste and smell, intermittent nausea with no emesis, and nonbloody diarrhea. On 07/14, patient reports towards the middle of the day into the afternoon, his shortness of breath increased in intensity and was present both with activity and at rest. He checked his oxygen saturations and they dropped down to 80%. He also had some associated new onset of mild pleuritic chest pain and subjective fever. As the afternoon progressed into the early evening, his dyspnea continued to worsen and a repeat O2 saturation was 70%. In the ED, patient had a low fever (100.4), initial O2 sat was 70% on room air, hypertensive (189/81), tachycardic (HR 120), and tachypneic (RR 30). A nonrebreather was applied at 10 L, and his saturations remained between 89-95%. His hypoxia worsened, and he was transitioned to Vapotherm at 25 L and 100% FiO2; his saturations remained in the low to mid 90s with Vapotherm. CTA showed no pulmonary embolism or right heart strain, but dilated pulmonary trunk consistent with pulmonary hypertension, bilateral ground glass opacities, mild left pleural effusion, fatty infiltration of liver with hepatosplenomegaly. PAST MEDICAL HISTORY: Morbid obesity SOCIAL HISTORY: Reviewed and non-contributory. FAMILY HISTORY: Mother: secondary to brain aneurysm. ALLERGIES: Please see below. REVIEW OF SYSTEMS: Negative except as per HPI. HOME MEDICATIONS: Please see below. PHYSICAL EXAMINATION: Vital Signs: reviewed General: NAD, lying comfortably in bed HEENT: NC/AT, EOMI Neck: supple, no masses Chest: lungs CTA B/L Heart: +S1S2, RRR Abd: soft, NT, ND, hypoactive bowel sounds, obese Ext: no edema Skin: no rashes MSK: full ROM at large joints Neuro: no gross focal deficits Psych: AAOx3 LABORATORY DATA: See below. A/P: #acute hypoxic respiratory failure - secondary to COVID PNA - admit to ICU - vapotherm for supplemental oxygen - remdesivir/dexamethasone/baricitinib - possible secondary bacterial PNA - check procal, empiric abx with zosyn/vanco #morbid obesity - complicates care Vital Signs Vital Signs Date Time Temp Pulse Resp B/P (MAP) Pulse Ox O2 Delivery O2 Flow Rate FiO2 07/15/21 13:38 98.9 73 28 97 07/15/21 07:30 158/87 (110) 07/15/21 06:01 High Flow Cannula 25.0 07/15/21 05:48 100 Laboratory Data Labs 24H Laboratory Tests 2 07/15/21 00:10: Blood Gas Bicarbonate Standard 25.8, Arterial Blood pH 7.472H, Arterial Blood Partial Pressure CO2 34.5L, Arterial Blood Partial Pressure O2 78.0, Arterial Blood Total CO2 25.7, Arterial Blood HCO3 24.7, Arterial Blood Base Excess 1.6, Arterial Blood Oxygen Saturation 96.2 07/15/21 01:13: POC Glucose (Misc Panel) 133H, POC Sodium (Misc Panel) 137, POC Potassium (Misc Panel) 3.9, POC Chloride (Misc Panel) 99, POC Total CO2 (Misc Panel) 26.0, POC Blood Urea Nitrogen (Misc Panel 20, POC Ionized Calcium (Misc Panel) 4.3L, POC Creatinine (Misc Panel) 0.8, POC Hematocrit (Misc Panel) 45.0 07/15/21 04:38: Prothrombin Time 15.8H, Prothromb Time International Ratio 1.22, Activated Partial Thromboplast Time 34.1, Fibrinogen 520H, D-Dimer, Quantitative 636.00H, Ferritin 2683H, Total Bilirubin 0.8, Direct Bilirubin 0.4H, Aspartate Amino Transf (AST/SGOT) 183H, Alanine Aminotransferase (ALT/SGPT) 135H, Alkaline Phosphatase 66, Lactate Dehydrogenase 587H, Total Creatine Kinase 1953H, Troponin I High Sensitivity 16.0, C-Reactive Protein, Quantitative 3.32H, Total Protein 7.4, Albumin 3.2, Albumin/Globulin Ratio 0.8 07/15/21 11:08: Immature Granulocyte % (Auto) 0.4, Neutrophils (%) (Auto) 80.3H, Lymphocytes (%) (Auto) 15.9L, Monocytes (%) (Auto) 3.2, Eosinophils (%) (Auto) 0.0, Basophils (%) (Auto) 0.2, Neutrophils # (Auto) 3.7, Lymphocytes # (Auto) 0.7L, Monocytes # (Auto) 0.2, Eosinophils # (Auto) 0.0, Basophils # (Auto) 0.0, Nucleated Red Blood Cells % (auto) 0.0, II-Rou-E-Type Natriuretic Peptide 16 CBC/BMP Laboratory Tests 07/15/21 11:08 Microbiology Microbiology 07/15/21 Blood Culture, Received Pending 07/15/21 Blood Culture, Received Pending Home Medications No Active Prescriptions or Reported Meds Allergies Coded Allergies: No Known Allergies (Unverified , 06/09/21) A-FIB/CHADSVASC A-FIB History Current/History of A-Fib/PAF?: No GWENDOLYN LOYA MD Jul 15, 2021 14:27
[2021-07-15 14:36] LABS: ABG BASE EXCESS 1.9 (-2.0-2.0); ABG HCO3 26.3 MEQ/L (22.0-26.0); ABG O2 SATURATION 85.5 % (95.0-99.0); ABG PARTIAL PRESSURE CO2 40.1 mmHg (35.0-45.0); ABG STANDARD HCO3 25.9 MEQ/L (22.0-26.0); ABG TOTAL CO2 27.5 MEQ/L (22.0-29.0); ABG pH (ARTERIAL) 7.434 UNITS (7.350-7.450)
[2021-07-15] MEDS: PIPERACILLIN/TAZOBACTAM SOD 4.5 GM in D5W MINI-BAG PLUS 50 ML IV SCH ×2 (15:57→19:42)
[2021-07-15] MEDS: BARICITINIB 2MG TABLET (OLUMIANT) FOR EUA PO SCH (15:58)
[2021-07-15] MEDS ORDERED: VANCOMYCIN HCL 1,000 MG, VIAL MATE ADAPTER 1 EACH in NS 250 ML IV ONE (17:00)
[2021-07-15] MEDS: VANCOMYCIN HCL 1,000 MG, VIAL MATE ADAPTER 1 EACH in NS 250 ML IV SCH ×2 (17:00→23:38)
--- NOTE | 2021-07-15 18:38 | ECGEPIP ---
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
[2021-07-15] MEDS ORDERED: SODIUM CHLORIDE 0.9% INJ 10 ML SYR IV ONE (20:00)
[2021-07-15 20:13] LABS: APPEARANCE, URINE CLEAR (CLEAR); BACTERIA, URINE AUTO NEGATIVE (NEGATIVE); BILIRUBIN, URINE AUTO NEGATIVE (NEGATIVE); BLOOD, URINE BLOOD NEGATIVE (NEGATIVE); COLOR, URINE YELLOW (YELLOW); GLUCOSE, URINE (UA) AUTO NEGATIVE (NEGATIVE); KETONE, URINE AUTO NEGATIVE (NEGATIVE); LEUKOCYTE ESTERASE, URINE AUTO NEGATIVE (NEGATIVE); MUCUS, URINE SMALL (NEGATIVE); NITRITE, URINE AUTO NEGATIVE (NEGATIVE); PROTEIN, URINE AUTO 1+ mg/dL (NEGATIVE); RBC, URINE AUTO 0 /HPF (0-3); SPECIFIC GRAVITY URINE AUTO 1.044 (1.002-1.035); SQUAMOUS EPITHELIAL CELL UR AU 0 /HPF (0-6); WBC, URINE AUTO 3 /HPF (0-3)
[2021-07-15] MEDS ORDERED: PANTOPRAZOLE 40MG VIAL (C9113 PER 1) IV ONE (20:55)
[2021-07-15] MEDS ORDERED: CALCIUM CARBONATE 500 MG CHEW U/D PO ONE (20:55)
[2021-07-15 21:12] LABS: INFLUENZA A AMPLIFICATION NEGATIVE (NEGATIVE); INFLUENZA B AMPLIFICATION NEGATIVE (NEGATIVE)
[2021-07-15] MEDS: ACETAMINOPHEN TAB 650MG DOSE (2X325MG) PO PRN (22:41)
[2021-07-16] VITALS (19 sets, daily range): BP systolic 109–144; BP diastolic 53–93
[2021-07-16] MEDS ORDERED: PILL CUTTER 1 EACH XX PRN (01:10)
[2021-07-16] MEDS: hydrOXYzine 25 MG TAB PO PRN ×2 (01:15→09:56)
[2021-07-16] MEDS: PIPERACILLIN/TAZOBACTAM SOD 4.5 GM in D5W MINI-BAG PLUS 50 ML IV SCH ×4 (02:05→21:35)
[2021-07-16] MEDS: BENZONATATE 100MG CAPSULE PO PRN (04:58)
[2021-07-16 05:01] LABS: BASO % 0.1 % (0.0-1.0); HEMATOCRIT 40.7 % (42.0-52.0); HEMOGLOBIN 13.5 g/dl (13.5-17.5); LYMPH % 11.4 % (24.0-44.0); MEAN CORPUSCULAR HEMOGLOBIN 30.4 pg (27.0-33.0); MEAN CORPUSCULAR HGB CONC 33.2 g/dl (32.0-36.5); MEAN CORPUSCULAR VOLUME 91.7 fl (80.0-96.0); MONO # 0.4 10^3/uL (0.0-0.8); MONO % 4.5 % (2.0-8.0); NEUTROPHILS # 7.4 10^3/uL (1.5-8.5); NEUTROPHILS % 83.5 % (36.0-66.0); PLATELET COUNT, AUTOMATED 190 10^3/uL (150-450); RED BLOOD COUNT 4.44 10^6/uL (4.30-6.10); WHITE BLOOD COUNT 8.9 10^3/uL (4.0-10.0)
[2021-07-16 05:06] LABS: ALBUMIN 2.8 GM/DL (3.2-5.2); ALT/SGPT 103 U/L (12-78); BILIRUBIN,DIRECT 0.5 MG/DL (0.0-0.2); BILIRUBIN,TOTAL 0.9 MG/DL (0.2-1.0); BLOOD UREA NITROGEN 25 MG/DL (7-18); CALCIUM LEVEL 8.2 MG/DL (8.5-10.1); CARBON DIOXIDE LEVEL 27 MEQ/L (21-32); CHLORIDE LEVEL 105 MEQ/L (98-107); CREATININE FOR GFR 0.89 MG/DL (0.70-1.30); FERRITIN 1963 NG/ML (26-388); GLOMERULAR FILTRATION RATE > 60.0 (>60); GLUCOSE, FASTING 129 MG/DL (70-100); MAGNESIUM LEVEL 2.4 MG/DL (1.8-2.4); POTASSIUM SERUM 4.2 MEQ/L (3.5-5.1); SODIUM LEVEL 139 MEQ/L (136-145); TOTAL PROTEIN 6.6 GM/DL (6.4-8.2)
[2021-07-16] MEDS: dexameTHASONE 4 MG/ML 1ML VIAL (J1100 PER 1MG) IV SCH (08:13)
[2021-07-16] MEDS: VANCOMYCIN HCL 1,000 MG, VIAL MATE ADAPTER 1 EACH in NS 250 ML IV SCH (08:13)
[2021-07-16] MEDS: ENOXAPARIN 40MG/0.4ML SYRINGE (J1650 PER 10MG) SC SCH ×2 (08:13→21:35)
[2021-07-16] MEDS: PANTOPRAZOLE 40MG TAB (PROTONIX) PO SCH (08:14)
[2021-07-16] MEDS: BARICITINIB 2MG TABLET (OLUMIANT) FOR EUA PO SCH (08:14)
[2021-07-16] MEDS: ASPIRIN 81MG ENTERIC TABLET PO SCH (08:14)
[2021-07-16] MEDS ORDERED: REMDESIVIR 100 MG in NS 250 ML IV SCH (09:40)
[2021-07-16 15:10] LABS: MYCOPLASMA PNEUMONIAE IgG 1052 U/mL (0-99); MYCOPLASMA PNEUMONIAE IgM <770 U/mL (0-769)
--- NOTE | 2021-07-16 17:00 | ECHO ---
ECHOCARDIOGRAM DATE OF PROCEDURE: 07/15/2021 Age: Gender: Height: 58 inches Weight: 349 pounds REFERRING PHYSICIAN: Dr. Eduardo Gan INDICATION: Dyspnea, COVID-19 infection. 2D MEASUREMENTS: Aortic root 3.3 cm Proximal ascending aorta 3.4 cm Left atrium 4.0 cm Ventricular septum 1.14 cm Posterior wall 1.29 cm Left ventricle diastole 5.2 cm Left ventricle systole 3.3 cm DOPPLER MEASUREMENTS: No aortic regurgitation. No aortic stenosis. Aortic valve velocity 138 cm/s\ LVOT velocity 108 cm/s Trace mitral regurgitation. Mitral E velocity 81.5 cm/s Mitral A velocity 50.9 cm/s Mitral deceleration time 203 msec Trace tricuspid regurgitation. No pulmonic regurgitation. MITRAL ANNULAR TISSUE DOPPLER: E prime septal 8.7 cm/s DESCRIPTION: Rhythm was sinus. This was a moderately technically difficult echocardiogram. No subcostal view available. No pericardial effusion. CONCLUSIONS: 1. Mild concentric left ventricular hypertrophy. Normal regional LV wall motion and wall thickening. Normal LV systolic function. LVEF 65% by visual estimate. Normal LV diastolic function. 2. Moderately technically difficult echocardiogram. 3. Otherwise grossly normal-appearing echocardiogram Doppler findings.
[2021-07-16] MEDS: REMDESIVIR 100 MG in NS 250 ML IV SCH (17:28)
[2021-07-16] MEDS: SODIUM CHLORIDE 0.9% INJ 10 ML SYR IV SCH (18:43)
[2021-07-17] VITALS: BP 118/58
[2021-07-17] MEDS: PIPERACILLIN/TAZOBACTAM SOD 4.5 GM in D5W MINI-BAG PLUS 50 ML IV SCH ×4 (02:52→20:58)
[2021-07-17 04:00] VITALS: BP 118/63
[2021-07-17 04:54] LABS: BASO % 0.1 % (0.0-1.0); EOS % 0.2 % (0.0-3.0); HEMATOCRIT 46.2 % (42.0-52.0); HEMOGLOBIN 14.9 g/dl (13.5-17.5); LYMPH # 1.1 10^3/uL (1.5-5.0); LYMPH % 12.3 % (24.0-44.0); MEAN CORPUSCULAR HEMOGLOBIN 30.2 pg (27.0-33.0); MEAN CORPUSCULAR HGB CONC 32.3 g/dl (32.0-36.5); MEAN CORPUSCULAR VOLUME 93.5 fl (80.0-96.0); MONO # 0.5 10^3/uL (0.0-0.8); MONO % 5.5 % (2.0-8.0); NEUTROPHILS % 81.3 % (36.0-66.0); RED BLOOD COUNT 4.94 10^6/uL (4.30-6.10); WHITE BLOOD COUNT 8.6 10^3/uL (4.0-10.0)
[2021-07-17 05:04] LABS: INR 1.23; PROTHROMBIN TIME 15.9 SECONDS (12.7-14.5)
[2021-07-17 05:05] LABS: PARTIAL THROMBOPLASTIN TIME 31.1 SECONDS (25.9-37.0)
[2021-07-17 05:07] LABS: PLATELET COUNT, AUTOMATED 193 10^3/uL (150-450)
[2021-07-17 05:13] LABS: ALBUMIN 2.6 GM/DL (3.2-5.2); ALT/SGPT 94 U/L (12-78); BILIRUBIN,DIRECT 0.6 MG/DL (0.0-0.2); BLOOD UREA NITROGEN 23 MG/DL (7-18); CALCIUM LEVEL 7.9 MG/DL (8.5-10.1); CARBON DIOXIDE LEVEL 29 MEQ/L (21-32); CHLORIDE LEVEL 108 MEQ/L (98-107); CREATININE FOR GFR 0.95 MG/DL (0.70-1.30); FERRITIN 1819 NG/ML (26-388); GLOMERULAR FILTRATION RATE > 60.0 (>60); GLUCOSE, FASTING 94 MG/DL (70-100); LDH LACTATE DEHYDROGENASE 765 U/L (87-241); MAGNESIUM LEVEL 2.7 MG/DL (1.8-2.4); NT-PRO BNP 205 PG/ML (<125); POTASSIUM SERUM 4.6 MEQ/L (3.5-5.1); SODIUM LEVEL 144 MEQ/L (136-145)
--- NOTE | 2021-07-17 06:41 | IPNPDOC ---
Text Note Date of Service The patient was seen on 07/16/21. NOTE Subjective: Patient seen and examined at bedside. No acute overnight events reported. Patient voices no new medical complaints this morning. Objective: Vital Signs: reviewed General: NAD, lying comfortably in bed HEENT: NC/AT, EOMI Neck: supple, no masses Chest: lungs CTA B/L, diminished breath sounds bilaterally Heart: +S1S2, RRR Abd: soft, NT, ND, hypoactive bowel sounds, obese Ext: no edema Skin: no rashes MSK: full ROM at large joints Neuro: no gross focal deficits Psych: AAOx3 LABORATORY DATA: See below. A/P: #acute hypoxic respiratory failure - secondary to COVID PNA - admit to ICU - vapotherm for supplemental oxygen - remdesivir/dexamethasone/baricitinib - day #2 - possible secondary bacterial PNA - MRSA screen negative - SCx pending - d/c vanco, continue zosyn - procal noted - 0.11 - follow as per pulm - assistance appreciated #morbid obesity - complicates care Disposition: pending clinical improvement VS,Yuli, I+O VS, Yuli, I+O Laboratory Tests 07/17/21 04:42 Vital Signs Date Time Temp Pulse Resp B/P (MAP) Pulse Ox O2 Delivery O2 Flow Rate FiO2 07/17/21 06:00 24 95 NIPPV (BIPAP/CPAP) 100 07/17/21 04:00 97.6 58 118/63 (81) 07/16/21 18:00 40.0 I&O- Last 24 Hours up to 6 AM 07/17/21 06:00 Intake Total 1360 ml Output Total 2050 ml Balance -690 ml GWENDOLYN LOYA MD Jul 17, 2021 06:41
--- NOTE | 2021-07-17 07:33 | ECGEPIP ---
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
[2021-07-17] MEDS: dexameTHASONE 4 MG/ML 1ML VIAL (J1100 PER 1MG) IV SCH (08:04)
[2021-07-17] MEDS: ASPIRIN 81MG ENTERIC TABLET PO SCH (08:04)
[2021-07-17] MEDS: BARICITINIB 2MG TABLET (OLUMIANT) FOR EUA PO SCH (08:05)
[2021-07-17] MEDS: PANTOPRAZOLE 40MG TAB (PROTONIX) PO SCH (08:05)
[2021-07-17 08:06] VITALS: BP 117/58
[2021-07-17] MEDS: ENOXAPARIN 40MG/0.4ML SYRINGE (J1650 PER 10MG) SC SCH ×2 (08:06→20:58)
[2021-07-17] MEDS: ACETAMINOPHEN TAB 650MG DOSE (2X325MG) PO PRN (08:20)
[2021-07-17 12:08] VITALS: BP 122/59
[2021-07-17] MEDS: REMDESIVIR 100 MG in NS 250 ML IV SCH (17:10)
[2021-07-17] MEDS: SODIUM CHLORIDE 0.9% INJ 10 ML SYR IV SCH (18:18)
[2021-07-17 19:49] VITALS: BP 112/55
[2021-07-17] MEDS: SODIUM CHLORIDE NASAL 0.65% SPRAY BTL (OCEAN) SCH (20:58)
[2021-07-17 22:04] VITALS: BP 114/54
[2021-07-17] MEDS: BENZONATATE 100MG CAPSULE PO PRN (22:40)
[2021-07-17] MEDS: hydrOXYzine 25 MG TAB PO PRN (22:40)
[2021-07-18] VITALS (8 sets, daily range): BP systolic 111–138; BP diastolic 56–80
[2021-07-18] MEDS: PIPERACILLIN/TAZOBACTAM SOD 4.5 GM in D5W MINI-BAG PLUS 50 ML IV SCH ×4 (02:03→20:05)
[2021-07-18 05:29] LABS: BASO % 0.2 % (0.0-1.0); HEMATOCRIT 43.9 % (42.0-52.0); HEMOGLOBIN 14.3 g/dl (13.5-17.5); LYMPH # 1.1 10^3/uL (1.5-5.0); LYMPH % 9.6 % (24.0-44.0); MEAN CORPUSCULAR HEMOGLOBIN 30.5 pg (27.0-33.0); MEAN CORPUSCULAR HGB CONC 32.6 g/dl (32.0-36.5); MEAN CORPUSCULAR VOLUME 93.6 fl (80.0-96.0); MONO # 0.5 10^3/uL (0.0-0.8); MONO % 4.4 % (2.0-8.0); NEUTROPHILS # 9.6 10^3/uL (1.5-8.5); NEUTROPHILS % 85.1 % (36.0-66.0); PLATELET COUNT, AUTOMATED 227 10^3/uL (150-450); RED BLOOD COUNT 4.69 10^6/uL (4.30-6.10); WHITE BLOOD COUNT 11.3 10^3/uL (4.0-10.0)
[2021-07-18 05:50] LABS: BLOOD UREA NITROGEN 25 MG/DL (7-18); CALCIUM LEVEL 8.3 MG/DL (8.5-10.1); CARBON DIOXIDE LEVEL 29 MEQ/L (21-32); CHLORIDE LEVEL 107 MEQ/L (98-107); CREATININE FOR GFR 0.85 MG/DL (0.70-1.30); GLOMERULAR FILTRATION RATE > 60.0 (>60); GLUCOSE, FASTING 91 MG/DL (70-100); MAGNESIUM LEVEL 2.7 MG/DL (1.8-2.4); POTASSIUM SERUM 4.2 MEQ/L (3.5-5.1); SODIUM LEVEL 143 MEQ/L (136-145)
[2021-07-18] MEDS: ASPIRIN 81MG ENTERIC TABLET PO SCH (08:13)
[2021-07-18] MEDS: dexameTHASONE 4 MG/ML 1ML VIAL (J1100 PER 1MG) IV SCH (08:14)
[2021-07-18] MEDS: ENOXAPARIN 40MG/0.4ML SYRINGE (J1650 PER 10MG) SC SCH ×2 (08:14→20:05)
[2021-07-18] MEDS: PANTOPRAZOLE 40MG TAB (PROTONIX) PO SCH (08:14)
[2021-07-18] MEDS: BARICITINIB 2MG TABLET (OLUMIANT) FOR EUA PO SCH (08:14)
[2021-07-18] MEDS: SODIUM CHLORIDE NASAL 0.65% SPRAY BTL (OCEAN) SCH ×3 (08:35→21:11)
[2021-07-18] MEDS ORDERED: LIDOCAINE 1% MDV 20ML VIAL As Ordered ONE (16:30)
[2021-07-18 17:07] LABS: BODY FLUID CULTURE Not indicated. (.); LEGIONELLA ANTIGEN URINE Negative (Negative); ORGANISM ID Not indicated. (.); SPECIMEN SOURCE Urine (.); URINE STREP PNEUMONIAE ANTIGEN Negative (Negative)
[2021-07-18] MEDS: REMDESIVIR 100 MG in NS 250 ML IV SCH (17:45)
[2021-07-18] MEDS: ACETAMINOPHEN TAB 650MG DOSE (2X325MG) PO PRN (17:52)
[2021-07-18] MEDS: hydrOXYzine 25 MG TAB PO PRN (17:52)
[2021-07-18] MEDS: SODIUM CHLORIDE 0.9% INJ 10 ML SYR IV SCH (19:28)
[2021-07-19] VITALS: BP 112/53
[2021-07-19] MEDS: PIPERACILLIN/TAZOBACTAM SOD 4.5 GM in D5W MINI-BAG PLUS 50 ML IV SCH ×4 (03:13→20:56)
[2021-07-19 04:00] VITALS: BP 105/49
[2021-07-19 04:18] LABS: BASO % 0.2 % (0.0-1.0); HEMATOCRIT 41.7 % (42.0-52.0); HEMOGLOBIN 13.8 g/dl (13.5-17.5); LYMPH # 1.1 10^3/uL (1.5-5.0); MEAN CORPUSCULAR HEMOGLOBIN 30.7 pg (27.0-33.0); MEAN CORPUSCULAR HGB CONC 33.1 g/dl (32.0-36.5); MEAN CORPUSCULAR VOLUME 92.7 fl (80.0-96.0); MONO # 0.4 10^3/uL (0.0-0.8); NEUTROPHILS # 10.3 10^3/uL (1.5-8.5); NEUTROPHILS % 87.1 % (36.0-66.0); PLATELET COUNT, AUTOMATED 218 10^3/uL (150-450); WHITE BLOOD COUNT 11.8 10^3/uL (4.0-10.0)
[2021-07-19 04:29] LABS: INR 1.25; PROTHROMBIN TIME 16.1 SECONDS (12.7-14.5)
[2021-07-19 04:30] LABS: PARTIAL THROMBOPLASTIN TIME 29.7 SECONDS (25.9-37.0)
[2021-07-19 04:49] LABS: ALBUMIN 2.5 GM/DL (3.2-5.2); ALT/SGPT 84 U/L (12-78); BILIRUBIN,DIRECT 0.3 MG/DL (0.0-0.2); BILIRUBIN,TOTAL 0.7 MG/DL (0.2-1.0); BLOOD UREA NITROGEN 23 MG/DL (7-18); CALCIUM LEVEL 7.8 MG/DL (8.5-10.1); CARBON DIOXIDE LEVEL 27 MEQ/L (21-32); CHLORIDE LEVEL 108 MEQ/L (98-107); CREATININE FOR GFR 0.87 MG/DL (0.70-1.30); FERRITIN 1506 NG/ML (26-388); GLOMERULAR FILTRATION RATE > 60.0 (>60); GLUCOSE, FASTING 74 MG/DL (70-100); LDH LACTATE DEHYDROGENASE 865 U/L (87-241); MAGNESIUM LEVEL 2.5 MG/DL (1.8-2.4); NT-PRO BNP 133 PG/ML (<125); POTASSIUM SERUM 4.2 MEQ/L (3.5-5.1); SODIUM LEVEL 144 MEQ/L (136-145); TOTAL PROTEIN 6.5 GM/DL (6.4-8.2)
[2021-07-19] MEDS: SODIUM CHLORIDE 0.9% INJ 10 ML SYR IV SCH ×3 (05:18→19:18)
[2021-07-19 08:00] VITALS: BP 114/67
[2021-07-19] MEDS: PANTOPRAZOLE 40MG TAB (PROTONIX) PO SCH (08:22)
[2021-07-19] MEDS: dexameTHASONE 4 MG/ML 1ML VIAL (J1100 PER 1MG) IV SCH (08:22)
[2021-07-19] MEDS: BARICITINIB 2MG TABLET (OLUMIANT) FOR EUA PO SCH (08:22)
[2021-07-19] MEDS: SODIUM CHLORIDE NASAL 0.65% SPRAY BTL (OCEAN) SCH ×3 (08:23→20:56)
[2021-07-19] MEDS: ENOXAPARIN 40MG/0.4ML SYRINGE (J1650 PER 10MG) SC SCH ×2 (08:23→20:56)
[2021-07-19] MEDS: hydrOXYzine 25 MG TAB PO PRN (09:32)
[2021-07-19] MEDS: ACETAMINOPHEN TAB 650MG DOSE (2X325MG) PO PRN (09:32)
[2021-07-19] MEDS: ASPIRIN 81MG ENTERIC TABLET PO SCH (09:32)
--- NOTE | 2021-07-19 10:00 | IPNPDOC ---
Text Note Date of Service The patient was seen on 07/18/21. NOTE Subjective: Patient seen and examined at bedside. No acute overnight events reported. Patient voices no new medical complaints this morning. Objective: Vital Signs: reviewed General: NAD, lying comfortably in bed HEENT: NC/AT, EOMI Neck: supple, no masses Chest: lungs CTA B/L, diminished breath sounds bilaterally Heart: +S1S2, RRR Abd: soft, NT, ND, hypoactive bowel sounds, obese Ext: no edema Skin: no rashes MSK: full ROM at large joints Neuro: no gross focal deficits Psych: AAOx3 LABORATORY DATA: See below. A/P: #acute hypoxic respiratory failure - secondary to COVID PNA - admit to ICU - vapotherm for supplemental oxygen - remdesivir/dexamethasone/baricitinib - day #3 - possible secondary bacterial PNA - MRSA screen negative - SCx pending - continue zosyn - procal noted - 0.11 - follow as per pulm - assistance appreciated #morbid obesity - complicates care Disposition: pending clinical improvement VSYuli, I+O VS, Yuli I+O Laboratory Tests 07/19/21 04:00 Vital Signs Date Time Temp Pulse Resp B/P (MAP) Pulse Ox O2 Delivery O2 Flow Rate FiO2 07/19/21 08:00 40.0 100 07/19/21 08:00 97.7 81 20 114/67 (83) 91 HVNI-Vapotherm I&O- Last 24 Hours up to 6 AM 07/19/21 06:00 Intake Total 1450 ml Output Total 950 ml Balance 500 ml GWENDOLYN LOYA MD Jul 19, 2021 10:00
--- NOTE | 2021-07-19 10:01 | IPNPDOC ---
Text Note Date of Service The patient was seen on 07/19/21. NOTE Subjective: Patient seen and examined at bedside. No acute overnight events reported. Patient voices no new medical complaints this morning. Objective: Vital Signs: reviewed General: NAD, sitting comfortably in chair HEENT: NC/AT, EOMI Neck: supple, no masses Chest: lungs CTA B/L, diminished breath sounds bilaterally Heart: +S1S2, RRR Abd: soft, NT, ND, hypoactive bowel sounds, morbidly obese Ext: no edema Skin: no rashes MSK: full ROM at large joints Neuro: no gross focal deficits Psych: AAOx3 LABORATORY DATA: See below. A/P: #acute hypoxic respiratory failure - secondary to COVID PNA - admit to ICU - vapotherm for supplemental oxygen - remdesivir/dexamethasone/baricitinib - day # 4 - possible secondary bacterial PNA - MRSA screen negative - SCx pending - continue zosyn day #4 - procal noted - 0.11 x2 , repeat pending - will likely complete 5 days - follow as per pulm - assistance appreciated #morbid obesity - complicates care Disposition: pending clinical improvement; called Jackie and provided with update VS,Fishbone, I+O VS, Fishbone, I+O Laboratory Tests 07/19/21 04:00 Vital Signs Date Time Temp Pulse Resp B/P (MAP) Pulse Ox O2 Delivery O2 Flow Rate FiO2 07/19/21 08:00 40.0 100 07/19/21 08:00 97.7 81 20 114/67 (83) 91 HVNI-Vapotherm I&O- Last 24 Hours up to 6 AM 07/19/21 06:00 Intake Total 1450 ml Output Total 950 ml Balance 500 ml GWENDOLYN LOYA MD Jul 19, 2021 10:01
[2021-07-19 12:01] VITALS: BP 116/71
[2021-07-19] MEDS: COMBIVENT RESPIMAT 100-20MCG INHALER 4GM INH PRN (13:49)
[2021-07-19 16:02] VITALS: BP 114/68
[2021-07-19] MEDS: REMDESIVIR 100 MG in NS 250 ML IV SCH (17:15)
[2021-07-19] MEDS: guaiFENesin ER 600 MG TAB PO SCH (21:00)
[2021-07-19 21:57] VITALS: BP 122/60
[2021-07-20] VITALS (9 sets, daily range): BP systolic 109–135; BP diastolic 55–72
[2021-07-20] MEDS: hydrOXYzine 25 MG TAB PO PRN ×2 (00:51→10:03)
[2021-07-20] MEDS: BENZONATATE 100MG CAPSULE PO PRN ×2 (00:51→08:11)
[2021-07-20] MEDS: PIPERACILLIN/TAZOBACTAM SOD 4.5 GM in D5W MINI-BAG PLUS 50 ML IV SCH ×4 (03:57→21:21)
[2021-07-20] MEDS: guaiFENesin/CODEINE SYRUP 5 ML UDC PO PRN ×2 (03:57→10:03)
[2021-07-20 05:00] LABS: BASO % 0.1 % (0.0-1.0); EOS % 0.1 % (0.0-3.0); HEMATOCRIT 43.4 % (42.0-52.0); HEMOGLOBIN 14.3 g/dl (13.5-17.5); LYMPH # 1.1 10^3/uL (1.5-5.0); LYMPH % 7.8 % (24.0-44.0); MEAN CORPUSCULAR HEMOGLOBIN 30.5 pg (27.0-33.0); MEAN CORPUSCULAR HGB CONC 32.9 g/dl (32.0-36.5); MEAN CORPUSCULAR VOLUME 92.5 fl (80.0-96.0); MONO # 0.3 10^3/uL (0.0-0.8); MONO % 2.5 % (2.0-8.0); NEUTROPHILS # 12.2 10^3/uL (1.5-8.5); NEUTROPHILS % 88.8 % (36.0-66.0); PLATELET COUNT, AUTOMATED 234 10^3/uL (150-450); RED BLOOD COUNT 4.69 10^6/uL (4.30-6.10); WHITE BLOOD COUNT 13.7 10^3/uL (4.0-10.0)
[2021-07-20 05:32] LABS: BLOOD UREA NITROGEN 20 MG/DL (7-18); CALCIUM LEVEL 8.3 MG/DL (8.5-10.1); CARBON DIOXIDE LEVEL 28 MEQ/L (21-32); CHLORIDE LEVEL 107 MEQ/L (98-107); CREATININE FOR GFR 0.84 MG/DL (0.70-1.30); GLOMERULAR FILTRATION RATE > 60.0 (>60); GLUCOSE, FASTING 80 MG/DL (70-100); MAGNESIUM LEVEL 2.5 MG/DL (1.8-2.4); POTASSIUM SERUM 4.5 MEQ/L (3.5-5.1); SODIUM LEVEL 142 MEQ/L (136-145)
[2021-07-20] MEDS: SODIUM CHLORIDE 0.9% INJ 10 ML SYR IV SCH ×2 (06:22→18:32)
[2021-07-20 06:33] LABS: ABG BASE EXCESS 2.3 (-2.0-2.0); ABG HCO3 25.8 MEQ/L (22.0-26.0); ABG O2 SATURATION 95.7 % (95.0-99.0); ABG PARTIAL PRESSURE CO2 36.6 mmHg (35.0-45.0); ABG PARTIAL PRESSURE O2 77.3 mmHg (75.0-100.0); ABG STANDARD HCO3 26.5 MEQ/L (22.0-26.0); ABG TOTAL CO2 26.9 MEQ/L (22.0-29.0); ABG pH (ARTERIAL) 7.466 UNITS (7.350-7.450)
--- NOTE | 2021-07-20 08:05 | REP ---
INDICATION: covid. COMPARISON: Comparison portable chest x-ray and chest CT imaging July 15, 2021. TECHNIQUE: Sitting AP portable exam. FINDINGS: Right-sided PICC line is seen in place. There is increased or more confluent consolidation in the right perihilar region and in the left lower lobe region compared to the July 15 study. Pleural angles are sharp. Cardiomediastinal silhouette is unremarkable. Lungs are exposed at a relatively low level of inspiration. IMPRESSION: Extensive bilateral infiltrates. Somewhat more confluent. <Electronically signed by Trell Marie > 07/20/21 0849
[2021-07-20] MEDS: ASPIRIN 81MG ENTERIC TABLET PO SCH (08:11)
[2021-07-20] MEDS: dexameTHASONE 4 MG/ML 1ML VIAL (J1100 PER 1MG) IV SCH (08:11)
[2021-07-20] MEDS: ENOXAPARIN 40MG/0.4ML SYRINGE (J1650 PER 10MG) SC SCH ×2 (08:11→21:21)
[2021-07-20] MEDS: PANTOPRAZOLE 40MG TAB (PROTONIX) PO SCH (08:11)
[2021-07-20] MEDS: BARICITINIB 2MG TABLET (OLUMIANT) FOR EUA PO SCH (08:11)
[2021-07-20] MEDS: guaiFENesin ER 600 MG TAB PO SCH ×2 (08:11→21:21)
[2021-07-20] MEDS: SODIUM CHLORIDE NASAL 0.65% SPRAY BTL (OCEAN) SCH (08:14)
[2021-07-20 09:13] LABS: LDH LACTATE DEHYDROGENASE 886 U/L (87-241); NT-PRO BNP 94 PG/ML (<125)
--- NOTE | 2021-07-20 10:16 | CCN ---
CRITICAL CARE NOTE Critical care time was 40 minutes. This excludes all procedures. DATE: 07/20/2021 SUBJECTIVE: I was called to reevaluate Mr. Ho, who was hospitalized July 15 for a COVID pneumonia with severe hypoxia. There was concern for worsening hypoxia. The patient is short of breath, on CPAP, sating in the low 90's. On my arrival, there was a significant air leak. I tightened his mask, increased his pressure to 18 and therefore obtaining tidal volumes over 500. With that improvement, his oxygen saturation improved to 97%. He states he is attempting to do proning when he is able. We had a discussion of whether or not he would want to proceed with intubation and he states he wants to avoid it if at all possible, but he is willing to accept it to save his life. He has no significant past medical history other than morbid obesity but does have a family history of pulmonary embolism. His speech is clear and at this point he is not tachycardic but is slightly tachypneic. OBJECTIVE: PHYSICAL EXAMINATION: VITAL SIGNS: Temperature is 97.8, pulse is 85, respiratory rate is 22, blood pressure is 122/64 with a MAP of 83. Oxygen saturation now is 95% on 0.90 FiO2 with CPAP of 18. GENERAL APPEARANCE: Awake, alert and oriented. Affect and mood are appropriate. Nutrition and hygiene are good. HEENT: Oral and nasal mucosa are moist without lesions. Oropharynx without erythema or exudate. Mallampati 4 airway. NECK: Large in circumference. PULMONARY: Decreased breath sounds throughout both lung justin with basilar rales. There are no rhonchi. There is no wheeze. There is no accessory muscle use at this point in time. ABDOMEN: Obese, soft, nontender, nondistended. No hepatosplenomegaly. No masses or hernia. EXTREMITIES: No cyanosis or clubbing or edema. SKIN: No rashes, jaundice or bruising. Multiple tattoos are present. NEUROLOGICAL: No asterixis, tremor or unilateral weakness. IMAGING: Chest x-ray from this morning shows diffuse ground glass infiltrates through both lung justin, poor lung expansion. LABORATORY EVALUATION: Some of which is still pending - sodium is 142, potassium is 4.5, chloride is 107, bicarbonate of 28, BUN of 20, creatinine of 0.84. PT is 16.1. Arterial blood gas this morning shows a pH of 7.46, pco2 of 36, pao2 of 77. IMPRESSION: 1. Severe hypoxic respiratory failure with risk for requiring intubation and mechanical ventilation - CPAP settings adjusted at bedside with some minimal improvement. If the patient continues to decline, we will consider intubation and mechanical ventilation. 2. COVID pneumonia - continue Remdesivir and Decadron and Baricitinib as already prescribed. At this point in time there does not appear to be any co-infection, however would continue to monitor for signs of sepsis. The patient is already on Zosyn. CONDITION: Overall prognosis is extremely guarded given the severity of the COVID pneumonia and hypoxia. MTDD
--- NOTE | 2021-07-20 12:31 | IPNPDOC ---
Text Note Date of Service The patient was seen on 07/20/21. NOTE Subjective: Patient seen and examined at bedside. Patient voices no new medical complaints this morning. Through the day and overnight his supplemental oxygen requirements have increased. He states he is worried about his prognosis, asking what his chances of living are. Objective: Vital Signs: reviewed General: NAD, lying comfortably in bed on his side HEENT: NC/AT, EOMI Neck: supple, no masses Chest: lungs CTA B/L, diminished breath sounds bilaterally Heart: +S1S2, RRR Abd: soft, NT, ND, hypoactive bowel sounds, morbidly obese Ext: no edema Skin: no rashes, multiple tattoos MSK: full ROM at large joints Neuro: no gross focal deficits Psych: AAOx3 LABORATORY DATA: See below. A/P: #acute hypoxic respiratory failure - secondary to COVID PNA - admit to ICU - vapotherm for supplemental oxygen - remdesivir/dexamethasone/baricitinib - day # 5 - possible secondary bacterial PNA - MRSA screen negative - SCx pending - continue zosyn day #5 - procal noted - 0.11 x2 , repeat procal <0.05 - follow as per pulm - assistance appreciated - CPAP pressures increased #morbid obesity - complicates care #DVT prophylaxis - currently on intermediate dosing - DDimer trending up Disposition: pending clinical improvement; called Jackie and provided with update VS,Yuli, I+O VS, Waynebone, I+O Laboratory Tests 07/20/21 04:56 Vital Signs Date Time Temp Pulse Resp B/P (MAP) Pulse Ox O2 Delivery O2 Flow Rate FiO2 07/20/21 10:00 72 33 98 NIPPV (BIPAP/CPAP) 100 07/20/21 08:45 40.0 07/20/21 08:00 97.6 135/63 (87) I&O- Last 24 Hours up to 6 AM 07/20/21 06:00 Intake Total 1740 ml Output Total 1300 ml Balance 440 ml GWENDOLYN LOYA MD Jul 20, 2021 12:31
[2021-07-20] MEDS ORDERED: SODIUM CHLORIDE NASAL 0.65% SPRAY BTL (OCEAN) PRN (15:05)
[2021-07-21] VITALS (21 sets, daily range): BP systolic 98–178; BP diastolic 53–111
[2021-07-21] MEDS: hydrOXYzine 25 MG TAB PO PRN ×2 (03:04→15:10)
[2021-07-21] MEDS: PIPERACILLIN/TAZOBACTAM SOD 4.5 GM in D5W MINI-BAG PLUS 50 ML IV SCH ×4 (03:04→21:00)
[2021-07-21] MEDS: guaiFENesin/CODEINE SYRUP 5 ML UDC PO PRN ×2 (03:04→08:56)
[2021-07-21] MEDS: BENZONATATE 100MG CAPSULE PO PRN ×2 (03:04→12:04)
[2021-07-21 05:34] LABS: BASO % 0.2 % (0.0-1.0); EOS # 0.1 10^3/uL (0.0-0.5); EOS % 0.4 % (0.0-3.0); HEMATOCRIT 44.4 % (42.0-52.0); HEMOGLOBIN 14.5 g/dl (13.5-17.5); LYMPH # 0.9 10^3/uL (1.5-5.0); LYMPH % 7.3 % (24.0-44.0); MEAN CORPUSCULAR HEMOGLOBIN 30.3 pg (27.0-33.0); MEAN CORPUSCULAR HGB CONC 32.7 g/dl (32.0-36.5); MEAN CORPUSCULAR VOLUME 92.7 fl (80.0-96.0); MONO # 0.3 10^3/uL (0.0-0.8); MONO % 2.3 % (2.0-8.0); NEUTROPHILS # 11.4 10^3/uL (1.5-8.5); NEUTROPHILS % 89.1 % (36.0-66.0); PLATELET COUNT, AUTOMATED 291 10^3/uL (150-450); RED BLOOD COUNT 4.79 10^6/uL (4.30-6.10); WHITE BLOOD COUNT 12.8 10^3/uL (4.0-10.0)
[2021-07-21 05:44] LABS: INR 1.35; PROTHROMBIN TIME 17.1 SECONDS (12.7-14.5)
[2021-07-21 05:45] LABS: PARTIAL THROMBOPLASTIN TIME 29.4 SECONDS (25.9-37.0)
[2021-07-21] MEDS: SODIUM CHLORIDE 0.9% INJ 10 ML SYR IV SCH ×2 (06:12→17:46)
[2021-07-21 07:48] LABS: ALBUMIN 2.7 GM/DL (3.2-5.2); ALT/SGPT 74 U/L (12-78); BILIRUBIN,DIRECT 0.4 MG/DL (0.0-0.2); BILIRUBIN,TOTAL 0.9 MG/DL (0.2-1.0); BLOOD UREA NITROGEN 25 MG/DL (7-18); CALCIUM LEVEL 8.2 MG/DL (8.5-10.1); CARBON DIOXIDE LEVEL 26 MEQ/L (21-32); CHLORIDE LEVEL 106 MEQ/L (98-107); CREATININE FOR GFR 1.03 MG/DL (0.70-1.30); FERRITIN 1354 NG/ML (26-388); GLOMERULAR FILTRATION RATE > 60.0 (>60); GLUCOSE, FASTING 96 MG/DL (70-100); LDH LACTATE DEHYDROGENASE 946 U/L (87-241); MAGNESIUM LEVEL 2.7 MG/DL (1.8-2.4); NT-PRO BNP 46 PG/ML (<125); POTASSIUM SERUM 4.4 MEQ/L (3.5-5.1); SODIUM LEVEL 141 MEQ/L (136-145)
[2021-07-21] MEDS: PANTOPRAZOLE 40MG TAB (PROTONIX) PO SCH (08:05)
[2021-07-21] MEDS: dexameTHASONE 4 MG/ML 1ML VIAL (J1100 PER 1MG) IV SCH (08:05)
[2021-07-21] MEDS: BARICITINIB 2MG TABLET (OLUMIANT) FOR EUA PO SCH (08:05)
[2021-07-21] MEDS: guaiFENesin ER 600 MG TAB PO SCH ×2 (08:05→21:00)
[2021-07-21] MEDS: ASPIRIN 81MG ENTERIC TABLET PO SCH (08:05)
[2021-07-21] MEDS: ENOXAPARIN 40MG/0.4ML SYRINGE (J1650 PER 10MG) SC SCH (08:05)
--- NOTE | 2021-07-21 08:19 | REP ---
INDICATION: concern for subcutaneous air please include neck COMPARISON: 07/20/2021 at 7:19 a.m. TECHNIQUE: Portable AP view of the chest FINDINGS: Diffuse mid to lower lobe opacities are again noted and similar to prior examination when allowing for variation in technique. No obvious effusion. No definite pneumothorax. Element of pneumomediastinum cannot be excluded and should be correlated clinically. If necessary consider chest CT. Right PICC line with tip in the subclavian/SVC confluence. Skeletal structures appear grossly intact. IMPRESSION: Diffuse bilateral opacities/consolidations essentially unchanged. Cannot exclude pneumomediastinum and correlation is required. If necessary consider chest CT for further investigation. <Electronically signed by Raz Diaz > 07/21/21 0840
--- NOTE | 2021-07-21 08:49 | CCN ---
CRITICAL CARE NOTE DATE: 07/21/2021 SUBJECTIVE: Patient is sitting at bedside, has significant improvement in oxygen status now only requiring 0.65 FIO2 on CPAP of 18. He is able to come off and ate breakfast. He states his breathing is significantly better. He has had some neck swelling which is likely steroid induced increased supraclavicular fat pads, however we need to monitor for the possibility of pneumothorax and crepitus. He has had no fever overnight. He has had nonproductive cough without mucous or hemoptysis. No lower extremity edema. No calf pain. OBJECTIVE: VITAL SIGNS: Temperature is 98.0, pulse is 73 and respiratory rate is 24, blood pressure is 99/53 with a MAP of 68, oxygen saturation is 92% on 0.65 FIO2 via CPAP of 18. GENERAL: Awake, alert and oriented. Affect and mood are appropriate. Nutrition and hygiene are good. He is able to speak in full sentences. HEENT: Sclera are clear, anicteric. Pupils equal and reactive to light. Mucous membranes are moist without lesions. Tongue is midline. Mallampati 4 airway. NECK: Supple. There is some fullness more so on the left than the right of the neck. There is no crepitus to palpation. This is over the supraclavicular fat pads. There is no crepitus to the chest wall. LYMPH: No cervical, supraclavicular or axillary adenopathy. CARDIAC: Regular S1 and S2 without audible murmur, rub or gallop. PMI is difficult to palpate due to body habitus. PULMONARY: Decreased breath sounds throughout both lung justin. Rales bilaterally without wheeze. There is no accessory muscle use at this point in time. ABDOMEN: Obese, soft, nontender and nondistended. No hepatosplenomegaly. No masses or hernia. SKIN: Tattoos are present. No rashes, jaundice or bruising. LABORATORY DATA: Laboratory evaluation shows a sodium of 141, potassium 4.4, chloride 106, bicarbonate of 26, BUN 25, creatinine 1.03 with a white blood cell count of 12.8, hemoglobin 14.5, hematocrit 44.4, platelet count of 291,000. Ferritin is down at 1354, LDH is up at 946, D-Dimer was elevated to 2986. No new imaging today. IMPRESSION: 1. Hypoxic respiratory failure from COVID-19 pneumonia, currently on Decadron, Zosyn prophylaxis for bacterial infection, is on Baricitinib 4 mg a day. Finished Remdesivir. Patient is critically ill and has a high risk of requiring intubation although he has had some improvement overnight. MTDD
[2021-07-21] MEDS: HEPARIN DRIP 25,000 UNITS in IV 1 EA IV SCH (09:57)
[2021-07-21] MEDS: ACETAMINOPHEN TAB 650MG DOSE (2X325MG) PO PRN (15:10)
[2021-07-21] MEDS: HEPARIN SOD (PORCINE) 5000UNITS/ML 1ML VIAL/SYRINGE IV PRN (16:38)
[2021-07-21] MEDS: MORPHINE 2 MG/ML 1ML VIAL (J2270) IV PRN (20:00)
[2021-07-21] MEDS ORDERED: LIDOCAINE 1% MDV 20ML VIAL As Ordered ONE (20:53)
[2021-07-21] MEDS ORDERED: flumazeniL 0.5 MG/5 ML VIAL As Ordered ONE (20:54)
[2021-07-21] MEDS ORDERED: MIDAZOLAM INJ 2MG/2ML VIAL (J2250 PER 1MG) As Ordered ONE (20:55)
--- NOTE | 2021-07-21 20:57 | IPNPDOC ---
Text Note Date of Service The patient was seen on 07/21/21. NOTE Subjective: Patient seen and examined at bedside. Patient voices no new medical complaints this morning. He is feeling much better today. He states his breathing has significantly improved. Objective: Vital Signs: reviewed General: NAD, sitting comfortably in chair HEENT: NC/AT, EOMI, facial mask in place Neck: supple, bilateral swelling Chest: speaking easily in full sentences, no accessory muscle use Abd: ND, morbidly obese Ext: no edema Skin: no rashes, multiple tattoos MSK: full ROM at large joints Neuro: no gross focal deficits Psych: AAOx3 LABORATORY DATA: See below. A/P: #acute hypoxic respiratory failure -Much improved today - secondary to COVID PNA - CPAP with pressure of 18, FiO2 65 - completed remdesivir - dexamethasone/baricitinib - day # 6 - possible secondary bacterial PNA - MRSA screen negative - SCx pending - continue zosyn day #6 - procal noted - 0.11 x2 , repeat procal <0.05 - follow as per pulm - assistance greatly appreciated #neck swelling - CXR no pneumothorax - CT chest/neck pending for further evaluation #morbid obesity - complicates care #DVT prophylaxis - family history of PE's - advanced to full therapeutic dosing Disposition: pending clinical improvement; called Jackie and provided with update VSYuli, I+O VSYuli, I+O Laboratory Tests 07/21/21 05:00 07/21/21 06:00 Vital Signs Date Time Temp Pulse Resp B/P (MAP) Pulse Ox O2 Delivery O2 Flow Rate FiO2 07/21/21 17:29 88 HVNI-Vapotherm 40.0 100 07/21/21 16:00 97.1 71 22 122/95 (104) I&O- Last 24 Hours up to 6 AM 07/21/21 06:00 Intake Total 840 ml Output Total 1650 ml Balance -810 ml GWENDOLYN LOYA MD Jul 21, 2021 20:57
--- NOTE | 2021-07-21 21:47 | REPVR ---
PROCEDURE INFORMATION: Exam: CT Chest Without Contrast; Diagnostic Exam date and time: 07/21/2021 8:57 PM Age: 31 years old Clinical indication: Shortness of breath; Additional info: ? Pneumo/ bilateral swelling to neck please include neck TECHNIQUE: Imaging protocol: Diagnostic computed tomography of the chest without contrast. 3D rendering (Not supervised by radiologist): MIP and/or 3D reconstructed images were created by the technologist. Radiation optimization: All CT scans at this facility use at least one of these dose optimization techniques: automated exposure control; mA and/or kV adjustment per patient size (includes targeted exams where dose is matched to clinical indication); or iterative reconstruction. COMPARISON: CT ANGIO CHEST 07/15/2021 5:02 AM FINDINGS: Lungs: Patient now has hazy interstitial density throughout all aspects of the lung and this has progressed since 07/15/2021 exam. The patient has known COVID-19 pneumonia through the lungs. However there may be superimposed ARDS and including interstitial edema. Heart: There is massive pneumomediastinum and also pneumopericardium. There is a large amount of air anterior to the cardiac silhouette which causes impression on the anterior aspect of the heart and may cause restriction into the heart. Air is seen tracking along the esophagus and aorta. Lymph nodes: Lymph node along the left side of the pulmonary artery. Bones/joints: There is no evidence of fracture. Soft tissues: There is massive subcutaneous air anterior chest wall and extending through the pectoralis muscles. No IV contrast was given decreasing the sensitivity for the great vessels. IMPRESSION: 1. Extensive subcutaneous air anterior chest and also pneumomediastinum. 2. There is a loculation of air anterior to the heart and causing impression on the anterior aspect of the heart and this may restrict the heart. 3. Known COVID-19 pneumonia but interval development of hazy increased density throughout all aspects of the lung and this may be associated with ARDS and interstitial edema causing very poor ventilation of the lungs. Electronically signed by: Balwinder Muniz On 07/21/2021 21:46:39 PM
[2021-07-21] MEDS ORDERED: fentaNYL 100 MCG/2 ML INJECTION (J3010) As Ordered ONE (21:55)
[2021-07-21] MEDS ORDERED: KETOROLAC 30 MG/ML 1ML VIAL As Ordered ONE (21:55)
[2021-07-21] MEDS ORDERED: flumazeniL 0.5 MG/5 ML VIAL IV STA (22:14)
[2021-07-21] MEDS ORDERED: KETOROLAC 30 MG/ML 1ML VIAL IV ONE (22:15)
[2021-07-21] MEDS ORDERED: fentaNYL 100 MCG/2 ML INJECTION (J3010) IV ONE (22:15)
[2021-07-21] MEDS ORDERED: LIDOCAINE 1% MDV 20ML VIAL SC ONE (22:15)
[2021-07-21] MEDS ORDERED: MIDAZOLAM INJ 2MG/2ML VIAL (J2250 PER 1MG) IV SCH (22:15)
--- NOTE | 2021-07-21 22:24 | REPVR ---
PROCEDURE INFORMATION: Exam: XR Chest Exam date and time: 07/21/2021 10:17 PM Age: 31 years old Clinical indication: Device placement; Chest tube; Additional info: Post chest tube placement TECHNIQUE: Imaging protocol: XR of the chest. Views: 1 view. COMPARISON: CT Chest without contrast 07/21/2021 8:36 PM FINDINGS: Lungs: There is a hazy appearance throughout the lungs which has developed and very suspicious for ARDS which is superimposed on COVID-19 pneumonia. Pleural spaces: There is concern that since the CT examination there is been development of left-sided pneumothorax. Heart/Mediastinum: There is pneumomediastinum. The CT demonstrated a large amount of air anterior to the cardiac silhouette impressing on the anterior portion of the heart. This could cause cardiac restriction. Prominence left side of the heart. Bones/joints: Unremarkable. IMPRESSION: 1. The CT demonstrated a large amount of air anterior to the cardiac silhouette which impresses on the heart and may cause cardiac restriction. 2. Development of severe ARDS superimposed on COVID-19 pneumonia. 3. There is concern that since the CT there has been development of left-sided pneumothorax. Electronically signed by: Balwinder Muniz On 07/21/2021 22:24:25 PM
[2021-07-21] MEDS ORDERED: PERCOCET 5MG/325MG TAB PO PRN (22:30)
--- NOTE | 2021-07-21 22:32 | REPVR ---
PROCEDURE INFORMATION: Exam: CT Neck Without Contrast Exam date and time: 07/21/2021 8:57 PM Age: 31 years old Clinical indication: Mass, lump, or swelling in neck; Bilateral; Additional info: ? Pneumo TECHNIQUE: Imaging protocol: Computed tomography images of the neck without contrast. Radiation optimization: All CT scans at this facility use at least one of these dose optimization techniques: automated exposure control; mA and/or kV adjustment per patient size (includes targeted exams where dose is matched to clinical indication); or iterative reconstruction. COMPARISON: CT ANGIO CHEST 07/15/2021 5:02 AM FINDINGS: Mastoid air cells: Clear mastoid air cells. Paranasal sinuses: Clear paranasal sinuses. Retropharyngeal space: A large amount of pneumomediastinum follows the retropharyngeal space and surrounds the vessels. In the upper chest this is contiguous with the pneumomediastinum. Soft tissues: There is a large amount of subcutaneous air following the right and left sternocleidomastoid muscle. There is a large amount of subcutaneous air anterior chest wall and extending into the neck. This extends into the pectoralis muscles. IMPRESSION: 1. Large amount of subcutaneous emphysema in the retropharyngeal space. 2. Large amount of subcutaneous air following the sternocleidomastoid muscles. Pneumomediastinum. Electronically signed by: Balwinder Muniz On 07/21/2021 22:31:36 PM
[2021-07-22] VITALS (13 sets, daily range): BP systolic 119–149; BP diastolic 65–87
[2021-07-22] MEDS: hydrOXYzine 25 MG TAB PO PRN
[2021-07-22] MEDS: MORPHINE 2 MG/ML 1ML VIAL (J2270) IV PRN ×2 (00:50→20:32)
[2021-07-22] MEDS ORDERED: LORazepam 2 MG/ML VIAL As Ordered ONE (02:22)
[2021-07-22 02:29] LABS: ABG BASE EXCESS 1.3 (-2.0-2.0); ABG HCO3 26.5 MEQ/L (22.0-26.0); ABG O2 SATURATION 99.1 % (95.0-99.0); ABG PARTIAL PRESSURE CO2 43.7 mmHg (35.0-45.0); ABG PARTIAL PRESSURE O2 171.2 mmHg (75.0-100.0); ABG STANDARD HCO3 25.7 MEQ/L (22.0-26.0); ABG TOTAL CO2 27.8 MEQ/L (22.0-29.0)
[2021-07-22] MEDS: LORazepam 2 MG/ML VIAL IV PRN ×2 (02:54→23:48)
[2021-07-22] MEDS: PIPERACILLIN/TAZOBACTAM SOD 4.5 GM in D5W MINI-BAG PLUS 50 ML IV SCH ×4 (03:29→20:30)
[2021-07-22] MEDS: KETOROLAC 30 MG/ML 1ML VIAL IV SCH ×4 (04:00→22:18)
--- NOTE | 2021-07-22 04:26 | REPVR ---
PROCEDURE INFORMATION: Exam: XR Chest Exam date and time: 07/22/2021 2:25 AM Age: 31 years old Clinical indication: Other: Hypoxia TECHNIQUE: Imaging protocol: XR of the chest. Views: 1 view. COMPARISON: CR PORTABLE CHEST X-RAY 07/21/2021 9:59 PM FINDINGS: Tubes, catheters and devices: Right-sided PICC line with its tip in the proximal SVC. Left-sided chest tube remains in place. Overlying EKG leads. Lungs: Persistent bilateral ground-glass and consolidative airspace opacities, not significantly changed. Pleural spaces: Suspect trace residual left pneumothorax which has decreased in size. No large pneumothorax, however, evaluation is limited by the extensive overlying subcutaneous emphysema. No significant pleural effusions. Heart/Mediastinum: Cardiomediastinal silhouette is stable. Redemonstration of pneumomediastinum and extensive subcutaneous emphysema. Bones/joints: Bones are stable. IMPRESSION: 1. Tubes and lines, as described. 2. Redemonstration of pneumomediastinum and extensive subcutaneous emphysema which limits evaluation of the underlying lungs. 3. Bilateral airspace disease, not significantly changed. 4. Suspect trace left pneumothorax, decreased in size. No large pneumothorax. Electronically signed by: Raz Alfonso On 07/22/2021 04:26:03 AM
--- NOTE | 2021-07-22 05:11 | IPNPDOC ---
Date Seen The patient was seen on 07/22/21. Progress Note I was found at 10:03 PM on 07/21/2021 by virtual radiology. Spoke with Dr. Muniz. I was informed of extensive subcutaneous air anterior chest and also pneumomediastinum. There was a loculation of air anterior to the heart and causing an impression on the anterior aspect of the heart. Findings also consistent with ARDS and interstitial edema in the setting of COVID-19 pneumonia. I spoke with Dr. Lambert and requested a stat echo to be performed. Once arrived to bedside it became clear that Dr. Anglin and Dr. Rios had already examined the patient and placed the chest tube. I discussed the patient's case with Dr. Anglin, and CT findings reported to me by radiology. Echocardiography was deferred as management would not change at this time, likely air collection was a result of pneumomediastinum rather than pneumopericardium. Patient remains hemodynamically stable, normotensive and saturating 94% at this time. VS, I&O, 24H, [facility] Vital Signs/I&O Vital Signs Date Time Temp Pulse Resp B/P (MAP) Pulse Ox O2 Delivery O2 Flow Rate FiO2 07/22/21 04:00 8.0 100 07/22/21 01:30 98.2 57 28 129/69 (89) 89 NIPPV (BIPAP/CPAP) I&O- Last 24 Hours up to 6 AM 07/22/21 06:00 Intake Total 1308 ml Output Total 605 ml Balance 703 ml Laboratory Data 24H LABS Laboratory Tests 2 07/21/21 05:00: Immature Granulocyte % (Auto) 0.7, Neutrophils (%) (Auto) 89.1H, Lymphocytes (%) (Auto) 7.3L, Monocytes (%) (Auto) 2.3, Eosinophils (%) (Auto) 0.4, Basophils (%) (Auto) 0.2, Neutrophils # (Auto) 11.4H, Lymphocytes # (Auto) 0.9L, Monocytes # (Auto) 0.3, Eosinophils # (Auto) 0.1, Basophils # (Auto) 0.0, Nucleated Red Blood Cells % (auto) 0.0, Prothrombin Time 17.1H, Prothromb Time International Ratio 1.35, Activated Partial Thromboplast Time 29.4, Fibrinogen 537H 07/21/21 06:00: Anion Gap 9, Glomerular Filtration Rate > 60.0, Calcium Level 8.2L, Magnesium Level 2.7H, Ferritin 1354H, Total Bilirubin 0.9, Direct Bilirubin 0.4H, Aspartate Amino Transf (AST/SGOT) 71H, Alanine Aminotransferase (ALT/SGPT) 74, Alkaline Phosphatase 68, Lactate Dehydrogenase 946H, Total Creatine Kinase 291, Troponin I High Sensitivity 7.0, GW-Coc-B-Type Natriuretic Peptide 46, Total Protein 7.0, Albumin 2.7L, Albumin/Globulin Ratio 0.6, Procalcitonin 0.14 07/21/21 15:40: Activated Partial Thromboplast Time 41.4H 07/22/21 02:15: Blood Gas Bicarbonate Standard 25.7, Arterial Blood pH 7.400, Arterial Blood Partial Pressure CO2 43.7, Arterial Blood Partial Pressure O2 171.2H, Arterial Blood Total CO2 27.8, Arterial Blood HCO3 26.5H, Arterial Blood Base Excess 1.3, Arterial Blood Oxygen Saturation 99.1H CBC/BMP Laboratory Tests 07/21/21 05:00 07/21/21 06:00 Microbiology Microbiology 07/15/21 Blood Culture - Final, Complete NO GROWTH AFTER 5 DAYS 07/15/21 Blood Culture - Final, Complete NO GROWTH AFTER 5 DAYS IVAN RAMÍREZ MD Jul 22, 2021 05:11
[2021-07-22 05:55] LABS: BASO % 0.2 % (0.0-1.0); EOS % 0.1 % (0.0-3.0); HEMATOCRIT 44.4 % (42.0-52.0); HEMOGLOBIN 14.7 g/dl (13.5-17.5); LYMPH # 0.6 10^3/uL (1.5-5.0); LYMPH % 4.2 % (24.0-44.0); MEAN CORPUSCULAR HEMOGLOBIN 30.6 pg (27.0-33.0); MEAN CORPUSCULAR HGB CONC 33.1 g/dl (32.0-36.5); MEAN CORPUSCULAR VOLUME 92.3 fl (80.0-96.0); MONO # 0.5 10^3/uL (0.0-0.8); MONO % 3.4 % (2.0-8.0); NEUTROPHILS # 13.3 10^3/uL (1.5-8.5); NEUTROPHILS % 91.1 % (36.0-66.0); PLATELET COUNT, AUTOMATED 289 10^3/uL (150-450); RED BLOOD COUNT 4.81 10^6/uL (4.30-6.10); WHITE BLOOD COUNT 14.6 10^3/uL (4.0-10.0)
--- NOTE | 2021-07-22 06:03 | CCN ---
CRITICAL CARE NOTE DATE: 07/21/2021 critical care time 67 minutes this excludes all procedures SUBJECTIVE: I was called with increasing crepitus in the neck by the nurse. I ordered a chest CT which showed mediastinal area, small, barely perceptible left pneumothorax. Because of his worsening oxygen status it was felt it was better to place a small chest tube in order to decompress the chest. He was already off pressure therapy for the majority of the day. He received Morphine for neck pain. I assisted Dr. Rios during the time of the chest tube placement. I managed anesthesia. Patient received six of Versed. He did have hypoxia down to the mid 70s but after chest tube was placed the patient was placed back on CPAP and returned to the low 90s. The patient is able to answer questions but is sleepy after the Versed. He did receive some Romazicon for partial reversal of the anesthesia because of respiratory status. The patient is now on a CPAP of 8 with a sat of 92% pulling tidal volumes just above 500. He may be able to convert back to Vapotherm while when awake. He understands he is very close to intubation, may need mechanical ventilation, did speak with his prior to the procedure. Overall, the procedure went well. There is a good leak. Chest x-ray shows chest tube in appropriate position. The patient will be closely monitored overnight, intubated if necessary, overall very guarded prognosis. VIRGIL
[2021-07-22 06:10] LABS: PARTIAL THROMBOPLASTIN TIME 56.4 SECONDS (25.9-37.0)
[2021-07-22 06:23] LABS: BLOOD UREA NITROGEN 27 MG/DL (7-18); CALCIUM LEVEL 8.5 MG/DL (8.5-10.1); CARBON DIOXIDE LEVEL 28 MEQ/L (21-32); CHLORIDE LEVEL 106 MEQ/L (98-107); CREATININE FOR GFR 0.98 MG/DL (0.70-1.30); GLOMERULAR FILTRATION RATE > 60.0 (>60); GLUCOSE, FASTING 85 MG/DL (70-100); MAGNESIUM LEVEL 2.5 MG/DL (1.8-2.4); POTASSIUM SERUM 4.7 MEQ/L (3.5-5.1); SODIUM LEVEL 141 MEQ/L (136-145)
[2021-07-22 06:25] LABS: D-DIMER QUANT 3436.24 ng/ml (<500)
[2021-07-22] MEDS: SODIUM CHLORIDE 0.9% INJ 10 ML SYR IV SCH ×2 (06:35→18:00)
--- NOTE | 2021-07-22 06:43 | RO ---
OPERATIVE NOTE DATE OF OPERATION: 07/21/2021 PREOPERATIVE DIAGNOSIS: Massive subcutaneous emphysema and small pneumothorax on the left side. POSTOPERATIVE DIAGNOSIS: Massive subcutaneous emphysema and small pneumothorax on the left side. PROCEDURE: Insertion of left lateral chest tube with moderate sedation of 6 mg of Versed and 25 mg of Fentanyl. SURGEON: SAMANTHA HAMPTON M.D. INDICATIONS: The patient is a 31-year-old white male positive for COVID with progressive hypoxia who was noted today to have increasing subcutaneous emphysema and pain in his neck. Chest CT revealed a sliver of a pneumothorax on the left presumably where his subcutaneous emphysema is emanating. Because of the massive subcutaneous emphysema, it was decided to place a lateral chest tube. Patient is morbidly obese. DESCRIPTION OF PROCEDURE: Under satisfactory moderate sedation achieved with 6 mg of Versed at first, the patient was prepped and draped in the usual sterile fashion. An incision was made in and around the sixth intercostal space. A tunnel was created in the chest with some difficulty given the patient's size. Both the skin, subcutaneous tissue and muscles were infiltrated with 1% Lidocaine but I could never reach the pleura with the 21 gauge needle. The pleura was punched through with a Irena clamp and a #20 chest tube was placed with relative ease. It was secured to the chest wall with #2 Tevdek suture. The patient started to desaturate looking as though he was in pain and grunting, and therefore 25 mg of Fentanyl were administered. The patient was then ventilated with an Ambu bag and 0.4 mg of Romazicon was given to reverse two-thirds of the Versed dose. Patient eventually brought his saturations up above 90. Dr. Anglin was controlling the airway. Patient tolerated the procedure well. A chest x-ray is pending.
[2021-07-22] MEDS: HEPARIN DRIP 25,000 UNITS in IV 1 EA IV SCH ×2 (06:52→15:28)
[2021-07-22] MEDS: dexameTHASONE 4 MG/ML 1ML VIAL (J1100 PER 1MG) IV SCH (08:34)
[2021-07-22] MEDS: ASPIRIN 81MG ENTERIC TABLET PO SCH (08:34)
[2021-07-22] MEDS: BARICITINIB 2MG TABLET (OLUMIANT) FOR EUA PO SCH (08:34)
[2021-07-22] MEDS: PANTOPRAZOLE 40MG TAB (PROTONIX) PO SCH (08:35)
[2021-07-22] MEDS: guaiFENesin ER 600 MG TAB PO SCH ×2 (08:35→20:31)
--- NOTE | 2021-07-22 13:20 | CCN ---
CRITICAL CARE NOTE DATE: 07/22/2021 CRITICAL CARE TIME: 45 minutes, this excludes all procedures SUBJECTIVE: Overnight, Augie had a pneumomediastinum. He had been developing subcutaneous air in the neck throughout the day and complaining of neck pain. I had ordered a chest CT to see if this was a pneumomediastinum or if there was a significant pneumothorax. There was a small pneumothorax on the left. For decompression, we placed a chest tube on the left last evening. The patient's oxygen saturation is adequate on CPAP of 8 on 100% FiO2. When the patient switches to high-flow cannula, he had some additional desaturations to the high 80s. He has no significant tachycardia. He does feel short of breath with minimal movement. He is occasionally standing and repositioning. The chest tube itself has no air leak. Minimal output. The patient remains on remdesivir, Zosyn and heparin. Zosyn is more for prophylaxis due to the severity of his pneumonia. He is on a heparin drip due to extensive family history of pulmonary embolism in the face of active COVID infection. PHYSICAL EXAMINATION: Temperature is 97.0, pulse is 82, respiratory rate is 36, blood pressure is 125/74 with a MAP of 91. Iron saturation is 90% on 100% FiO2, CPAP of 8. He is getting tidal volumes around 500 to 600 on a CPAP of 8. General: Awake, alert and oriented, dyspneic with movement. At rest, appears comfortable. HEENT: Sclerae clear and anicteric. Pupils equal and reactive to light. Mucous membranes are moist. Tongue is midline. Mallampati 4 airway, large circumference of neck. There is crepitus over the left neck. No cervical, supraclavicular or axillary adenopathy. Cardiac: Regular S1, S2 without audible murmur, rub or gallop. PMI is difficult to palpate due to body habitus. Pulmonary: Decreased breath sounds throughout both lung justin with rales, but no rhonchi or wheeze. Abdomen: Obese, soft, nontender, non-distended. No discernible hepatosplenomegaly, no masses or hernias. Extremities: No cyanosis, clubbing or edema. Skin: Multiple tattoos without rash, jaundice or bruising. LABORATORY DATA: Laboratory evaluation shows a sodium 141, potassium 4.7, chloride 106, bicarbonate of 28, BUN 27, creatinine of 0.98. White blood cell count of 14.6, hemoglobin of 14.7 and platelet count of 289. D-dimer is up to 3436 today. Chest x-ray shows that the chest tube is still in good position, fenestration within the pleural cavity. There is no evidence of pneumothorax. There is less pneumomediastinum. There continues to be air throughout the pectoralis muscles. IMPRESSION: 1. Severe hypoxic respiratory failure with COVID pneumonia requiring critical monitoring. At risk for intubation, mechanical ventilation and high risk of . The patient remains on steroids, Zosyn for prophylaxis. Remains on heparin drip because of his obesity and high risk of pulmonary embolism. He was placed on heparin drip. 2. Pneumothorax, pneumomediastinum. Subcutaneous air in the neck improved. No evidence of pneumothorax on pressure therapy. The patient has high risk of recurrence, high risk of developing pneumothorax on the right side. Will attempt to limit pressure as much as possible while sustaining oxygenation. 3. Gastrointestinal prophylaxis. The patient is on Protonix. 4. Pain control due to chest tube placement. The patient has Percocet and morphine. The patient is quite awake despite this medication and has no evidence of excessive somnolence that would been contributing to his hypoxia. Overall, the patient's prognosis remains extremely guarded.
--- NOTE | 2021-07-22 14:06 | IPNPDOC ---
Date Seen The patient was seen on 07/22/21. Progress Note SUBJECTIVE: Pneumomediastinum identified on imaging overnight, CT surgery and pulmonary placed chest tube on the left. Some very mild improvement on x-ray this morning. Patient remains very anxious and on 100% FiO2. He denies chest pain, fevers, chills, nausea or vomiting. OBJECTIVE: PHYSICAL EXAM: Vital Signs: 97.2, RR 33-40, 74-112, BP 139/70, 91% Fio2 100%, CPAP General: Anxious sitting up at the bedside chair, appears uncomfortable, awake alert oriented x3 HEENT: NC/AT, EOMI, facial mask in place Neck: Large diameter, supple, bilateral swelling, mild crepitus mostly over left neck Chest: Left side chest tube with suction to bedside canister, decreased breath sounds bilaterally, no rhonchi or wheezing noted. no accessory muscle use Abd: ND, morbidly obese, bowel sounds positive in 4 quadrants, no organomegaly Ext: no edema, no cyanosis Skin: no rashes, multiple tattoos Neuro: no gross focal deficits Psych: Anxious LABORATORY DATA: See below. MICRO: Blood culture x2: Negative today IMAGING: CXR 07/22/21: 1. Tubes and lines, as described. 2. Redemonstration of pneumomediastinum and extensive subcutaneous emphysema which limits evaluation of the underlying lungs. 3. Bilateral airspace disease, not significantly changed. 4. Suspect trace left pneumothorax, decreased in size. No large pneumothorax. A/P: Acute hypoxic respiratory failure secondary to Covid pneumonia -Remains on CPAP, fIo2 100%, increasingly anxious, RR 33-40 -Procalcitonin low, MRSA screen negative, SCx unable to be provided -Pulmonary consulted -Continue with baricitinib, dexamethasone, Zosyn, heparin drip for DVT prophylaxis due to high risk of PE, albuterol as needed, incentive spirometer -Remains high risk for intubation/mechanical ventilation and Pneumomediastinum, pneumothorax -Chest x-ray above, on exam neck crepitus appears to improve -Per pulmonary note, limiting pressures as most as possible while sustaining oxygenation with CPAP -Chest tube in place -CT surgery and pulmonary consulted -Pain control Morbid obesity - complicates care DVT prophylaxis -family history of PE's -Heparin drip DISPOSITION: Continue with ICU care. Status remains critical. Pulmonary and CT surgery consulted. Total amount of ICU time spent caring for patient (nonprocedural): 40 minutes VS, I&O, 24H, Fishbone Vital Signs/I&O Vital Signs Date Time Temp Pulse Resp B/P (MAP) Pulse Ox O2 Delivery O2 Flow Rate FiO2 07/22/21 12:00 97.2 74 33 139/70 (93) 91 NIPPV (BIPAP/CPAP) 100 07/22/21 12:00 8.0 I&O- Last 24 Hours up to 6 AM 07/22/21 06:00 Intake Total 1308 ml Output Total 1030 ml Balance 278 ml Laboratory Data 24H LABS Laboratory Tests 2 07/21/21 15:40: Activated Partial Thromboplast Time 41.4H 07/22/21 02:15: Blood Gas Bicarbonate Standard 25.7, Arterial Blood pH 7.400, Arterial Blood Partial Pressure CO2 43.7, Arterial Blood Partial Pressure O2 171.2H, Arterial Blood Total CO2 27.8, Arterial Blood HCO3 26.5H, Arterial Blood Base Excess 1.3, Arterial Blood Oxygen Saturation 99.1H 07/22/21 05:30: Activated Partial Thromboplast Time 56.4H, Immature Granulocyte % (Auto) 1.0, Neutrophils (%) (Auto) 91.1H, Lymphocytes (%) (Auto) 4.2L, Monocytes (%) (Auto) 3.4, Eosinophils (%) (Auto) 0.1, Basophils (%) (Auto) 0.2, Neutrophils # (Auto) 13.3H, Lymphocytes # (Auto) 0.6L, Monocytes # (Auto) 0.5, Eosinophils # (Auto) 0.0, Basophils # (Auto) 0.0, Nucleated Red Blood Cells % (auto) 0.0, D-Dimer, Quantitative 3436.24H, Anion Gap 7L, Glomerular Filtration Rate > 60.0, Calcium Level 8.5, Magnesium Level 2.5H 07/22/21 12:48: Activated Partial Thromboplast Time 90.2H CBC/BMP Laboratory Tests 07/22/21 05:30 Microbiology Microbiology 07/15/21 Blood Culture - Final, Complete NO GROWTH AFTER 5 DAYS 07/15/21 Blood Culture - Final, Complete NO GROWTH AFTER 5 DAYS Marilyn Reinoso MD Jul 22, 2021 14:06
[2021-07-23] VITALS (77 sets, daily range): BP systolic 0–255; BP diastolic 0–148
[2021-07-23] MEDS: MORPHINE 2 MG/ML 1ML VIAL (J2270) IV PRN (02:10)
[2021-07-23] MEDS: PIPERACILLIN/TAZOBACTAM SOD 4.5 GM in D5W MINI-BAG PLUS 50 ML IV SCH ×4 (03:51→21:14)
[2021-07-23] MEDS: KETOROLAC 30 MG/ML 1ML VIAL IV SCH (04:00)
[2021-07-23 05:42] LABS: HEMATOCRIT 42.8 % (42.0-52.0); HEMOGLOBIN 14.2 g/dl (13.5-17.5); MEAN CORPUSCULAR HEMOGLOBIN 30.5 pg (27.0-33.0); MEAN CORPUSCULAR HGB CONC 33.2 g/dl (32.0-36.5); PLATELET COUNT, AUTOMATED 289 10^3/uL (150-450); RED BLOOD COUNT 4.65 10^6/uL (4.30-6.10); WHITE BLOOD COUNT 12.4 10^3/uL (4.0-10.0)
[2021-07-23] MEDS: HEPARIN DRIP 25,000 UNITS in IV 1 EA IV SCH ×2 (06:21→18:10)
[2021-07-23] MEDS: SODIUM CHLORIDE 0.9% INJ 10 ML SYR IV SCH ×2 (06:24→17:05)
[2021-07-23 06:25] LABS: ALBUMIN 2.5 GM/DL (3.2-5.2); ALT/SGPT 56 U/L (12-78); BILIRUBIN,TOTAL 0.8 MG/DL (0.2-1.0); BLOOD UREA NITROGEN 25 MG/DL (7-18); CALCIUM LEVEL 8.4 MG/DL (8.5-10.1); CARBON DIOXIDE LEVEL 28 MEQ/L (21-32); CHLORIDE LEVEL 104 MEQ/L (98-107); CREATININE FOR GFR 0.85 MG/DL (0.70-1.30); GLOMERULAR FILTRATION RATE > 60.0 (>60); GLUCOSE, FASTING 95 MG/DL (70-100); POTASSIUM SERUM 4.7 MEQ/L (3.5-5.1); SODIUM LEVEL 140 MEQ/L (136-145)
[2021-07-23] MEDS: dexameTHASONE 4 MG/ML 1ML VIAL (J1100 PER 1MG) IV SCH (08:16)
--- NOTE | 2021-07-23 08:23 | ECHO ---
ECHOCARDIOGRAM DATE OF PROCEDURE: 07/22/2021 Age: Gender: M Height: 173 cm Weight: 151 kg REFERRING PHYSICIAN: Dr. Paul Ritchie INDICATION: COVID-19, pneumomediastinum This is an extremely limited echocardiogram; only a few subcostal images were obtained. Apparently, there is no heart visualization from parasternal and apical images. No measurements were obtained. Very limited study. Dilated inferior vena cava with partial collapse with inspiration. Both atria are relatively well seen and appear enlarged. None of the four valves and none of the two ventricles were well visualized. No pericardial effusion is noted. CONCLUSIONS: Extremely limited study with minimal useful information obtained.
[2021-07-23] MEDS ORDERED: PROPOFOL 1,000 MG/100 ML VIAL As Ordered ONE (08:47)
[2021-07-23] MEDS ORDERED: VECURONIUM BROMIDE 10MG VIAL As Ordered ONE (08:56)
[2021-07-23] MEDS ORDERED: VECURONIUM BROMIDE 10MG VIAL IV STA (09:00)
[2021-07-23] MEDS: ASPIRIN 81MG ENTERIC TABLET PO SCH (09:00)
[2021-07-23] MEDS: propofoL 1,000 MG in IV 1 EA IV SCH ×7 (09:00→23:58)
[2021-07-23] MEDS ORDERED: MORPHINE 2 MG/ML 1ML VIAL (J2270) IV PRN (09:15)
[2021-07-23] MEDS ORDERED: MIDAZOLAM INJ 2MG/2ML VIAL (J2250 PER 1MG) IV PRN (09:15)
--- NOTE | 2021-07-23 09:20 | REP ---
INDICATION: S/P intubation COMPARISON: 07/22/2021 TECHNIQUE: Portable AP view of the chest FINDINGS: Endotracheal tube approximately 1.2 cm above the danita. Nasogastric tube in satisfactory position. Stable cardiomegaly. Diffuse bilateral subcutaneous emphysema along with underlying pleuroparenchymal changes (right greater than left) are similar to prior examination. IMPRESSION: 1. Endotracheal tube 1.2 cm above the danita. 2. Nasogastric tube in satisfactory position. 3. Subcutaneous emphysema and pleuroparenchymal changes similar to prior examination. <Electronically signed by Raz Diaz > 07/23/21 0916
[2021-07-23 09:21] LABS: ABG O2 SATURATION 57.2 % (95.0-99.0); ABG PARTIAL PRESSURE CO2 53.2 mmHg (35.0-45.0); ABG STANDARD HCO3 24.2 MEQ/L (22.0-26.0); ABG TOTAL CO2 29.6 MEQ/L (22.0-29.0); ABG pH (ARTERIAL) 7.339 UNITS (7.350-7.450)
[2021-07-23 09:24] LABS: ABG PARTIAL PRESSURE O2 32.2 mmHg (75.0-100.0)
[2021-07-23] MEDS: CISATRACURIUM 200 MG in NS 480 ML IV SCH ×4 (09:41→23:33)
[2021-07-23] MEDS: CHLORHEXIDINE GLUCONATE 0.12 % 15ML UDC (PERIDEX ORAL RINSE) MT SCH ×2 (10:25→21:14)
[2021-07-23] MEDS: PANTOPRAZOLE 40MG VIAL (C9113 PER 1) IV SCH (10:25)
[2021-07-23] MEDS: fentaNYL CITRATE 1,000 MCG in NS 80 ML IV SCH (10:27)
[2021-07-23] MEDS: BARICITINIB 2MG TABLET (OLUMIANT) FOR EUA PO SCH (10:28)
--- NOTE | 2021-07-23 11:07 | IPN ---
PROGRESS NOTE DATE: 07/22/2021 Mr. Ho is sitting up comfortably on continuous positive airway pressure (CPAP) in a chair. His subcutaneous emphysema is much less notable than it was yesterday. That includes over his pectoral muscles and at his neck. He does not remember any of the events of last night. His chest x-ray shows his lung fully expanded to the chest wall. Chest tube is in adequate position inferiorly. The chest x-ray, however, does show a little bit more emphysema in the neck today. I do not feel it on physical examination. His costophrenic angle on the right is sharp, and there is an infiltrative process in the left costophrenic angles are sharp. His heart size is much improved, but I suspect this is secondary to the x-ray positioning, showing a more lordotic view. There is no air leak from his chest tube. He has put out 25 mL from the chest tube itself over the last 12 hours. IMPRESSION: 1. COVID pneumonia. 2. Possible barotrauma from pressure support with rupture of an alveolus and pneumothorax. 3. Subcutaneous emphysema secondary to the above. PLAN AND DISCUSSION: I will keep the chest tube in until he is off pressure support. I am quite gratified that he is feeling better today and did not remember any of the events of last night. The basis of his care is in the hands of the final rail cutter.
--- NOTE | 2021-07-23 11:07 | CCN ---
Crtical care time was 61 minutes and excludes all procedure CRITICAL CARE NOTE DATE: 07/23/2021 SUBJECTIVE: Mr. Ho had progressive respiratory failure this morning when I was called by the nursing staff for increased shortness of breath. On arrival to the room, the patient's sats were in the high 60s and low 70s. Anesthesia had been called because they were in house to facilitate quicker intubation. Patient states he just couldn't breathe anymore, wanted intubation. Intubation was performed at bedside by Anesthesia. After placing mechanical ventilation even with paralytics patient's sats unable to rise above 55%. Chest x-ray does not show any new pneumothorax. There is poor expansion of the right lung. Endotracheal tube is in place. Despite multiple manipulations the patient's oxygen saturation is not improving. I contacted the family as I suspect he will pass away soon. OBJECTIVE: VITAL SIGNS: Temperature is 98.1, pulse is 78, respiratory rate is 26, blood pressure is 119/68, pulse of 85. Oxygen saturation 51% on 100% FIO2, PEEP of 15. HEENT: Sclerae clear, anicteric. Pupils equally reactive to light. Mucous membranes are moist without lesions. Tongue is midline. NECK: Large neck circumference. CHEST: Minimal crepitus over the left chest wall. Card: distant s1,s2 without murmur rub or gallop. No Elevated JVP Pulm: Decreased reath sound bilaterally with rhonchi or wheeze. Abd: Soft, nontender, Obese, hypoactive bowel sounds. Ext: no cyanosis or clubbing, Skin: no rashes jaundice or bruising LABORATORY EVALUATION: pH 7.34, pCO2 of 53, pO2 of 32 on an arterial blood gas, sodium is 140, potassium is 4.7, chloride is 104, bicarbonate is 28, BUN is 25, creatinine is 0.85. White blood cell count is 12.4. Hemoglobin 14.2. Chest x-ray shows that the endotracheal tube is approximately 1.2 cm above the danita. There is subcutaneous emphysema, diffuse infiltrate with less air entry on the right. IMPRESSION: Severe hypoxia, COVID pneumonia. Patient unable to oxygenate. I called family to bedside. I suspect he will have a cardiopulmonary arrest within the next hours because of the severity of his hypoxia. I would recommend that no resuscitation be performed, however the family is still dealing with his most recent rapid decline. I will continue to discuss his care with his . VIRGIL
[2021-07-23] MEDS ORDERED: SUCCINYLCHOLINE 100 MG/5 ML SYRINGE (J0330) ONE (12:09)
[2021-07-23] MEDS ORDERED: ROCURONIUM BROMIDE 50 MG/5 ML VIAL ONE (12:09)
[2021-07-23] MEDS: IPRATROPIUM 0.5MG/ALBUTEROL 2.5MG INH SOL UD 3ML (DUONEB) NEB SCH ×3 (12:12→20:32)
--- NOTE | 2021-07-23 14:38 | IPNPDOC ---
Date Seen The patient was seen on 07/23/21. Progress Note SUBJECTIVE: Patient became increasingly hypoxic, respiratory rate greater than 50. ABG showed worsening hypoxia with acidosis. Anesthesia was called and patient was intubated. Family was notified on worsening status. OBJECTIVE: PHYSICAL EXAM: Vital Signs: 97.2, [id number] sinus tach, respiratory rate 29, 111/58, 69-71% on FiO2 100% on ventilator General: Laying in bed, sedated HEENT: NC/AT, EOMI, ET tube in place Neck: Large diameter, supple, bilateral swelling, mild crepitus slightly i mproved left neck Chest: Left side chest tube with suction to bedside canister, decreased breath sounds bilaterally, no rhonchi or wheezing noted. Abd: ND, morbidly obese, bowel sounds positive in 4 quadrants, no organomegaly Ext: PICC line, no edema, no cyanosis Skin: no rashes, multiple tattoos Neuro: no gross focal deficits LABORATORY DATA: See below. MICRO: Blood culture x2: Negative today IMAGING: CXR 07/23/21: 1. Endotracheal tube 1.2 cm above the danita. 2. Nasogastric tube in satisfactory position. 3. Subcutaneous emphysema and pleuroparenchymal changes similar to prior examination CXR 07/22/21: 1. Tubes and lines, as described. 2. Redemonstration of pneumomediastinum and extensive subcutaneous emphysema which limits evaluation of the underlying lungs. 3. Bilateral airspace disease, not significantly changed. 4. Suspect trace left pneumothorax, decreased in size. No large pneumothorax. A/P: Acute hypoxic and hypercapnic respiratory failure secondary to COVID pneumonia, severe ARDS -Failed CPAP, worsening hypoxia, intubated on ventilator -ABG: pH 7.339, pCO2 53.2, paO2 32.2, HCO3 28. -Procalcitonin low, MRSA screen negative, SCx unable to be provided -Continue with baricitinib, dexamethasone, Zosyn, heparin drip for DVT prophylaxis due to high risk of PE, albuterol as needed, incentive spirometer, proning, breathing treatments -Transferred to pulmonary, Dr. Anglin, for primary care Pneumomediastinum, pneumothorax -Chest x-ray above -Per pulmonary note, limiting pressures as most as possible while sustaining oxygenation with CPAP -Chest tube in place -CT surgery and pulmonary consulted -Pain control Morbid obesity - complicates care DVT prophylaxis -family history of PE's -Heparin drip DISPOSITION: Very poor prognosis as patient remains hypoxic on PEEP 15, FiO2 100%. Family notified of overall poor prognosis and fact that he will likely pass very soon. They are called to come to see him. Transferred care to pulmonary as primary. Will sign off. Total amount of ICU time spent caring for patient (nonprocedural): 50 minutes VS, I&O, 24H, Fishbone Vital Signs/I&O Vital Signs Date Time Temp Pulse Resp B/P (MAP) Pulse Ox O2 Delivery O2 Flow Rate FiO2 07/23/21 13:15 105 111/58 (75) 71 Ventilator 100 07/23/21 12:13 29 07/23/21 12:00 97.2 07/23/21 09:26 I&O- Last 24 Hours up to 6 AM 07/23/21 06:00 Intake Total 972 ml Output Total 1545 ml Balance -573 ml Laboratory Data 24H LABS Laboratory Tests 2 07/22/21 18:16: Activated Partial Thromboplast Time 218.1*H 07/22/21 20:25: Activated Partial Thromboplast Time 74.0H 07/23/21 05:27: Activated Partial Thromboplast Time 51.9H, Nucleated Red Blood Cells % (auto) 0.0, Anion Gap 8, Glomerular Filtration Rate > 60.0, Calcium Level 8.4L, Total Bilirubin 0.8, Aspartate Amino Transf (AST/SGOT) 105H, Alanine Aminotransferase (ALT/SGPT) 56, Alkaline Phosphatase 96, Total Protein 7.0, Albumin 2.5L, Albumin/Globulin Ratio 0.6 07/23/21 09:10: Blood Gas Bicarbonate Standard 24.2, Arterial Blood pH 7.339L, Arterial Blood Partial Pressure CO2 53.2H, Arterial Blood Partial Pressure O2 32.2*L, Arterial Blood Total CO2 29.6H, Arterial Blood HCO3 28.0H, Arterial Blood Base Excess 1.0, Arterial Blood Oxygen Saturation 57.2L 07/23/21 12:01: Activated Partial Thromboplast Time 85.2H 07/23/21 12:29: Bedside Glucose (Misc Panel) 229H CBC/BMP Laboratory Tests 07/23/21 05:27 Microbiology Microbiology 07/15/21 Blood Culture - Final, Complete NO GROWTH AFTER 5 DAYS 07/15/21 Blood Culture - Final, Complete NO GROWTH AFTER 5 DAYS Marilyn Reinoso MD Jul 23, 2021 14:38
--- NOTE | 2021-07-23 16:50 | REP ---
INDICATION: post central line placement COMPARISON: 07/23/2021 TECHNIQUE: Portable AP view of the chest FINDINGS: Endotracheal tube 3 cm above the danita. Right IJ line with tip in the SVC. Nasogastric tube courses below left hemidiaphragm. Left chest tube in stable position. Stable cardiomegaly. Diffuse subcutaneous emphysema unchanged. Underlying pulmonary parenchymal opacities appear relatively stable. A miniscule right sided pneumothorax cannot definitively be excluded. No obvious effusion. IMPRESSION: Right IJ line with tip in the SVC. A very small right pneumothorax cannot definitively be excluded. Diffuse subcutaneous emphysema and suspected parenchymal opacities unchanged. <Electronically signed by Raz Diaz > 07/23/21 [id number]
[2021-07-23 17:41] LABS: RSV AMPLIFICATION NEGATIVE (NEGATIVE)
--- NOTE | 2021-07-23 18:34 | RO ---
OPERATIVE NOTE DATE OF OPERATION: 07/23/2021 PREOPERATIVE DIAGNOSIS: Right internal triple lumen venous catheter. Need for venous access, critical illness, hypoxia. POSTOPERATIVE DIAGNOSIS: Right internal triple lumen venous catheter. Need for venous access, critical illness, hypoxia. PROCEDURE: Right internal triple lumen venous catheter. Need for venous access, critical illness, hypoxia. PROCEDURIST: Cj Anglin DO RESIZER OPERATOR: None ANESTHESIA: The patient was sedated on mechanical ventilation. DESCRIPTION OF PROCEDURE: No informed consent was obtained as the patient was in extremis and therefore it needed to be done urgently in order to provide medication as he lost his peripheral IVs when being proned. The right IJ was prepped and draped in a sterile manner with chlorhexidine and full sterile barrier precautions. Time out was performed with two patient identifiers, identifying correct site and correct procedure. Right IJ was then accessed with the Raulerson syringe with return of venous blood flow. The wire was fed through the needle and the needle was removed. Catheter was placed via modified Seldinger technique. All three ports returned venous blood flow and flushed easily. This was sutured in at 15 cm. A sterile impregnated dressing was placed over the site. There were no observed complications. [facility]
[2021-07-23] MEDS ORDERED: NOREPINEPHRINE BITARTRATE 8 MG in D5W 492 ML IV SCH (19:30)
[2021-07-24] VITALS (58 sets, daily range): BP systolic 70–166; BP diastolic 35–79
[2021-07-24] MEDS ORDERED: PROPOFOL 1,000 MG/100 ML VIAL As Ordered ONE (01:36)
[2021-07-24] MEDS ORDERED: ZOSYN 4.5GM VIAL (J2543) As Ordered ONE (02:40)
[2021-07-24] MEDS: PIPERACILLIN/TAZOBACTAM SOD 4.5 GM in D5W MINI-BAG PLUS 50 ML IV SCH ×4 (03:52→20:50)
[2021-07-24] MEDS: propofoL 1,000 MG in IV 1 EA IV SCH ×10 (03:52→22:55)
[2021-07-24] MEDS: fentaNYL CITRATE 1,000 MCG in NS 80 ML IV SCH ×2 (03:56→23:42)
[2021-07-24 05:26] LABS: HEMATOCRIT 38.6 % (42.0-52.0); HEMOGLOBIN 12.3 g/dl (13.5-17.5); MEAN CORPUSCULAR HEMOGLOBIN 30.5 pg (27.0-33.0); MEAN CORPUSCULAR HGB CONC 31.9 g/dl (32.0-36.5); MEAN CORPUSCULAR VOLUME 95.8 fl (80.0-96.0); PLATELET COUNT, AUTOMATED 243 10^3/uL (150-450); RED BLOOD COUNT 4.03 10^6/uL (4.30-6.10); WHITE BLOOD COUNT 11.4 10^3/uL (4.0-10.0)
[2021-07-24] MEDS: CISATRACURIUM 200 MG in NS 480 ML IV SCH ×6 (05:32→22:09)
[2021-07-24] MEDS: SODIUM CHLORIDE 0.9% INJ 10 ML SYR IV SCH ×3 (05:35→18:00)
[2021-07-24 05:58] LABS: ALBUMIN 2.1 GM/DL (3.2-5.2); ALT/SGPT 42 U/L (12-78); BILIRUBIN,TOTAL 0.6 MG/DL (0.2-1.0); BLOOD UREA NITROGEN 26 MG/DL (7-18); CALCIUM LEVEL 8.3 MG/DL (8.5-10.1); CARBON DIOXIDE LEVEL 32 MEQ/L (21-32); CHLORIDE LEVEL 104 MEQ/L (98-107); CREATININE FOR GFR 0.89 MG/DL (0.70-1.30); GLOMERULAR FILTRATION RATE > 60.0 (>60); GLUCOSE, FASTING 104 MG/DL (70-100); SODIUM LEVEL 140 MEQ/L (136-145); TOTAL PROTEIN 6.8 GM/DL (6.4-8.2)
[2021-07-24 06:08] LABS: ABG BASE EXCESS 3.7 (-2.0-2.0); ABG HCO3 31.4 MEQ/L (22.0-26.0); ABG O2 SATURATION 87.9 % (95.0-99.0); ABG PARTIAL PRESSURE O2 57.8 mmHg (75.0-100.0); ABG STANDARD HCO3 27.5 MEQ/L (22.0-26.0); ABG TOTAL CO2 33.2 MEQ/L (22.0-29.0); ABG pH (ARTERIAL) 7.329 UNITS (7.350-7.450)
[2021-07-24] MEDS: HEPARIN DRIP 25,000 UNITS in IV 1 EA IV SCH ×2 (06:38→18:10)
[2021-07-24] MEDS: IPRATROPIUM 0.5MG/ALBUTEROL 2.5MG INH SOL UD 3ML (DUONEB) NEB SCH ×4 (07:54→20:15)
[2021-07-24] MEDS: PANTOPRAZOLE 40MG VIAL (C9113 PER 1) IV SCH (08:25)
[2021-07-24] MEDS: BARICITINIB 2MG TABLET (OLUMIANT) FOR EUA PO SCH (08:26)
[2021-07-24] MEDS: ASPIRIN 81MG ENTERIC TABLET PO SCH (08:26)
[2021-07-24] MEDS: CHLORHEXIDINE GLUCONATE 0.12 % 15ML UDC (PERIDEX ORAL RINSE) MT SCH ×2 (08:26→20:50)
--- NOTE | 2021-07-24 08:29 | REP ---
INDICATION: RESPIRATORY FAILURE COMPARISON: 07/23/2021 TECHNIQUE: Portable AP view of the chest FINDINGS: Endotracheal tube, nasogastric tube, right IJ line and right PICC line along with left chest tube are in stable satisfactory position. Diffuse bilateral subcutaneous emphysema limits evaluation for underlying pleuroparenchymal changes. Bilateral opacities suggesting elements of atelectasis/consolidation are again noted and similar to prior examination. No obvious new acute process. Current examination without evidence for pneumothorax. IMPRESSION: No significant change from prior examination. Current examination without evidence for right-sided pneumothorax as previously questioned. <Electronically signed by Raz Diaz > 07/24/21 [id number]
[2021-07-24] MEDS ORDERED: HEPARIN SOD (PORCINE) 5000UNITS/ML 1ML VIAL/SYRINGE IV ONE (09:35)
[2021-07-24] MEDS ORDERED: GLUCAGON INJ 1MG VIAL SC PRN (10:25)
[2021-07-24] MEDS ORDERED: GLUCOSE 4GM CHEW TABLET PO PRN (10:25)
[2021-07-24] MEDS ORDERED: LIDOCAINE 1% MDV 20ML VIAL As Ordered ONE ×2 (11:32→11:34)
--- NOTE | 2021-07-24 11:54 | CCN ---
CRITICAL CARE NOTE DATE: 07/24/2021 SUBJECTIVE: Mr. Ho is a 31-year-old male with severe hypoxia despite paralysis sedation, attempts towards proning. Patient remained hypoxic up until this morning. Saturations are barely obtaining low 80s at this point in time. Despite conversations with the family, the is aware that there is likely anoxic brain injury, she would like to continue proceeding with care. She does not want resuscitation of the patient should he not have a pulse but up until that time will continue to support and try to improve his medical issues. This morning on chest x-ray I noticed there is more subcu air on the right side. I do not believe there is a pneumothorax. It is quite a dilemma to weigh the risks and benefits of placing a chest tube at this point in time. I have consulted Dr. Rios for his opinion. The patient remains in the supine position. OBJECTIVE: VITAL SIGNS: This morning temperature is 99.9. Pulse 120, respiratory rate 22, blood pressure 150/73 with a MAP of 98. Oxygen saturation ranging 78 to 82% on 100% FiO2, PEEP of 15. I did put a pause into the volume delivered breaths to see if this would assist with lung recruitment. GENERAL: Patient is sedated on mechanical ventilation. No spontaneous breaths are generated. HEENT: Pupils are pinpoint but reactive. No scleral icterus. Mucous membranes are moist. Tongue is midline. Mallampati 4 airway. 8.[address] NECK: Supple. No tracheal deviation or mass. There is a right IJ without surrounding erythema or exudate. LYMPH: No cervical, supraclavicular, or axillary adenopathy. CHEST: There is crepitus along the chest wall. There does not appear to be increased crepitus in the neck. CARDIAC: Distant S1 and S2 without audible murmur, rub, or gallop. PMI is difficult to palpate due to body habitus. There is no significant pitting edema. PULMONARY: Good air entry bilaterally. There is no rhonchi or wheeze. There is no dullness to percussion. At this point in time, there is no accessory muscle use as the patient is paralyzed. ABDOMEN: Obese, soft, nontender. I do not auscultate any bowel sounds. There is no discernible hepatosplenomegaly. No masses or hernia. LABORATORY DATA: White blood cell count 11.4, hemoglobin 12.3, platelet count 243. Sodium 140, potassium 5.0, chloride 104, bicarb 32, BUN 26, creatinine 0.89, fasting glucose 104, calcium 8.3, AST 47. Arterial blood gas shows a pH of 7.33, pCO2 61, PaO2 58. Chest x-ray shows the left chest tube is in place with a fenestration inside the chest cavity. Endotracheal tube is about 6 cm above the danita. The right IJ is in place with the tip of the catheter in the SVC. There is also a PICC line with the tip of the catheter in the SVC. There is subcutaneous air, appears to be stable to improved on the left, possibly increased on the right with increased striations in the pectoralis muscle. I cannot definitively see a pneumothorax on the right. There does appear to be mediastinal air. There is no shifting of the mediastinal structures to the left. IMPRESSION/PLAN: 1. Acute hypoxic respiratory failure with ARDS, severe from COVID pneumonia. Patient remains on Zosyn for prophylaxis, Olumiant, and Decadron, and I am represcribing Remdesivir. Patient has completed the usual course, however, attempting salvage therapy. Patient still remains hypoxic, likely has anoxic brain injury from the severity of hypoxia and the duration of hypoxia. However, at this point in time, he remains sedated on paralytics in order to assist with oxygen delivery. Therefore, his neurologic status cannot be assessed at this point in time. The patient's family understands the likely risk of anoxic brain injury but wants to continue efforts. 2. Pneumothorax with pneumomediastinum and subcutaneous air. There is increased subcutaneous air on the right. I have consulted Dr. Rois for consideration of chest tube placement. 3. Hyperglycemia. Blood sugars occasionally up to 200. I have added sliding scale insulin. We will attempt tube feeds as the patient has been too unstable to attempt proning. 4. GI prophylaxis. On Protonix. 5. DVT prophylaxis. On a heparin drip as the patient is obese and has high likelihood of developing thromboembolic disease. Overall prognosis remains extremely guarded.
[2021-07-24] MEDS: HumaLOG INSULIN (NovoLOG) PER UNIT SC SCH ×3 (12:00→23:43)
--- NOTE | 2021-07-24 12:18 | RO ---
OPERATIVE NOTE DATE OF OPERATION: 07/24/2021 PREOPERATIVE DIAGNOSIS: Right pneumothorax. POSTOPERATIVE DIAGNOSIS: Right pneumothorax. PROCEDURE: Insertion of right anterior-superior chest tube. SURGEON: Dr. Jose Rios DESCRIPTION OF PROCEDURE: Patient is already sedated on a Versed and fentanyl drip. The correct side was determined, i.e,, the right side, and marked. The 2nd rib was palpated and found prior to marking. Skin, subcutaneous tissue, muscle, and pleura were infiltrated with 1% lidocaine. An incision was made and a tunnel created in the chest without difficulty. A gush of air was felt, indicating free air. A #20 chest tube was placed and aimed toward the apex. It was secured to the chest wall with a #2 Tevdek suture. The tube was connected to the Pleur-evac and dressed. Patient tolerated the procedure well, and a chest x-ray is pending.
--- NOTE | 2021-07-24 14:02 | REP ---
PROCEDURE NAME: PICC LINE INSERTION W/SITERITE CLINICAL INFORMATION: poor IV access. COMPARISON: None. PROCEDURE DESCRIPTION: The procedure was performed by JOSELYN Ruiz, under the direct supervision of Dr. Kilpatrick. The risks and benefits of the procedure were explained to the patient and an informed consent was obtained both verbally and written. Directly prior to the start of the procedure a formal time-out was completed in the procedure room. The right basilic vein was localized using ultrasound guidance. The skin was prepped and draped in sterile fashion. Three mL of 1% lidocaine 10 mg/mL was used as a local anesthetic. Using ultrasound guidance the right basilic vein was cannulated, and a 0.018 guidewire was inserted and advanced to the level of SVC using fluoroscopic guidance. The needle was removed and a 6 Haitian dilator and peel-away sheath was inserted over the guidewire. A 5.5 Haitian dual lumen catheter was cut to a length of 40 cm. The dilator was removed and the catheter was inserted over the guidewire with the tip ending at the level of the SVC. The peel-away sheath was removed and the catheter was flushed with heparinized saline as per hospital protocol. The catheter was affixed to the skin and a sterile dressing was applied. The patient tolerated the procedure well and there were no immediate complications. CONCLUSION: PICC line insertion into the right basilic vein. <Electronically signed by Mirta Sy > 07/21/21 0751 <Electronically signed by Tj Kilpatrick > 07/24/21 2240
[2021-07-24] MEDS: REMDESIVIR 100 MG in NS 250 ML IV SCH (14:39)
[2021-07-24] MEDS ORDERED: NOREPINEPHRINE 4 MG/4 ML AMP As Ordered ONE (15:04)
[2021-07-24] MEDS ORDERED: NOREPINEPHRINE BITARTRATE 8 MG in D5W 492 ML IV SCH (15:15)
[2021-07-24] MEDS: NOREPINEPHRINE BITARTRATE 8 MG in D5W 492 ML IV SCH (19:57)
[2021-07-25] VITALS (37 sets, daily range): BP systolic 102–159; BP diastolic 51–82
[2021-07-25] MEDS: propofoL 1,000 MG in IV 1 EA IV SCH ×11 (01:10→23:25)
[2021-07-25] MEDS: PIPERACILLIN/TAZOBACTAM SOD 4.5 GM in D5W MINI-BAG PLUS 50 ML IV SCH ×4 (03:00→22:58)
[2021-07-25] MEDS: CISATRACURIUM 200 MG in NS 480 ML IV SCH ×4 (03:33→20:03)
[2021-07-25] MEDS: ACETAMINOPHEN TAB 650MG DOSE (2X325MG) PO PRN ×3 (04:03→22:59)
[2021-07-25] MEDS ORDERED: PROPOFOL 1,000 MG/100 ML VIAL As Ordered ONE ×2 (05:14→19:34)
[2021-07-25] MEDS: HumaLOG INSULIN (NovoLOG) PER UNIT SC SCH ×3 (05:23→18:00)
[2021-07-25] MEDS: SODIUM CHLORIDE 0.9% INJ 10 ML SYR IV SCH ×3 (05:23→18:15)
[2021-07-25] MEDS: HEPARIN DRIP 25,000 UNITS in IV 1 EA IV SCH ×2 (05:24→17:25)
[2021-07-25 05:34] LABS: ABG BASE EXCESS 2.9 (-2.0-2.0); ABG HCO3 31.1 MEQ/L (22.0-26.0); ABG O2 SATURATION 88.5 % (95.0-99.0); ABG PARTIAL PRESSURE O2 58.7 mmHg (75.0-100.0); ABG STANDARD HCO3 26.8 MEQ/L (22.0-26.0); ABG TOTAL CO2 33.1 MEQ/L (22.0-29.0); ABG pH (ARTERIAL) 7.293 UNITS (7.350-7.450)
[2021-07-25 05:35] LABS: ABG PARTIAL PRESSURE CO2 65.7 mmHg (35.0-45.0)
[2021-07-25 05:58] LABS: HEMOGLOBIN 11.9 g/dl (13.5-17.5); MEAN CORPUSCULAR HEMOGLOBIN 30.8 pg (27.0-33.0); MEAN CORPUSCULAR HGB CONC 31.3 g/dl (32.0-36.5); MEAN CORPUSCULAR VOLUME 98.4 fl (80.0-96.0); PLATELET COUNT, AUTOMATED 277 10^3/uL (150-450); RED BLOOD COUNT 3.86 10^6/uL (4.30-6.10); WHITE BLOOD COUNT 16.2 10^3/uL (4.0-10.0)
[2021-07-25 06:40] LABS: BLOOD UREA NITROGEN 21 MG/DL (7-18); CALCIUM LEVEL 7.7 MG/DL (8.5-10.1); CARBON DIOXIDE LEVEL 32 MEQ/L (21-32); CHLORIDE LEVEL 107 MEQ/L (98-107); CREATININE FOR GFR 0.78 MG/DL (0.70-1.30); GLOMERULAR FILTRATION RATE > 60.0 (>60); GLUCOSE, FASTING 135 MG/DL (70-100); POTASSIUM SERUM 4.7 MEQ/L (3.5-5.1); SODIUM LEVEL 142 MEQ/L (136-145)
[2021-07-25 06:41] LABS: ALT/SGPT 48 U/L (12-78); BILIRUBIN,DIRECT 0.3 MG/DL (0.0-0.2); BILIRUBIN,TOTAL 0.5 MG/DL (0.2-1.0); TOTAL PROTEIN 6.1 GM/DL (6.4-8.2)
[2021-07-25] MEDS: IPRATROPIUM 0.5MG/ALBUTEROL 2.5MG INH SOL UD 3ML (DUONEB) NEB SCH ×4 (07:32→19:33)
[2021-07-25] MEDS: PANTOPRAZOLE 40MG VIAL (C9113 PER 1) IV SCH (07:44)
[2021-07-25] MEDS: BARICITINIB 2MG TABLET (OLUMIANT) FOR EUA PO SCH (07:44)
[2021-07-25] MEDS: CHLORHEXIDINE GLUCONATE 0.12 % 15ML UDC (PERIDEX ORAL RINSE) MT SCH ×2 (07:44→22:59)
--- NOTE | 2021-07-25 08:28 | REP ---
INDICATION: RESPIRATORY FAILURE COMPARISON: 07/24/2021 at 12 p.m. TECHNIQUE: Portable AP view of the chest FINDINGS: Endotracheal tube in satisfactory position. Right IJ line in satisfactory position. Right PICC line with tip in satisfactory position. Bilateral chest tubes remain stable. A nasogastric tube is identified which appears to terminate at the gastroesophageal junction and may warrant advancement. Cardiac silhouette is stable. Bilateral opacities are essentially unchanged. No obvious pneumothorax identified. IMPRESSION: 1. Nasogastric tube appears to terminate at the gastroesophageal junction and may warrant advancement. 2. No significant change to the bilateral pleuroparenchymal opacities. No obvious pneumothorax identified. <Electronically signed by Raz Diaz > 07/25/21 [id number]
--- NOTE | 2021-07-25 10:31 | CCN ---
CRITICAL CARE NOTE DATE: 07/25/2021 START TIME: 0900 STOP TIME: 939 SUBJECTIVE: I attended Augie Ho here in the Intensive Care Unit. Patient has been examined and chart reviewed. I spoke at length with the nurse at the bedside as well as with family members who were in attendance. He remains intubated, sedated, medically paralyzed. He remains on low dose vasopressors but these are being able to be weaned. T-max overnight 101.1, blood pressure 102 to 130s on weaning dose of Levophed, heart rate 90 to low 100s, respiratory 22 via the ventilator. Ins and outs midnight to midnight 4743 ml in with 1833 ml out. Minimal output from his chest tubes. Most recent laboratories shows white blood cell count of 16.2, hemoglobin 11.9, platelet 277,000, no differential this morning. Sodium 142, potassium 4.7, chloride 107, CO2 32, BUN 21, creatinine 0.78, glucose 135. Blood gas done on assist control rate at 22, tidal volume of 500, PEEP of 15, FIO2 of 100%, has a pH of 7.293, pCO2 of 65.7, pO2 of 58.7. Chest x-ray shows lines and tubes in good position. No obvious pneumothorax. No significant change compared to yesterday. OBJECTIVE: On exam, currently his paralytics have been interrupted and he does move all extremities. Pupils react. Sclera clear. Trachea is in the midline. Orogastric and oroendotracheal tube are in place. He has a right IJ. Chest shows bilateral chest tubes placed anteriorly. Breath sound intensity although diminished is audible Lung justin are fairly clear. No obvious rub. Cardiac exam is borderline tachycardic but regular. Peripheral pulses are diminished but palpable. Trace edema. Abdomen is obese, soft. There is hypoactive bowel sounds noted. No convincing organomegaly or masses. Extremities: No cyanosis or clubbing. Neurologically, as outlined above. Medication list has been reviewed. He is on Zosyn as well as his Baricitinib. He is full dose Heparin drip. He remains on Morphine, Ativan, Versed. He is on a Propofol drip, Fentanyl drip and Nimbex drip. He receives insulin coverage. He is also on Remdesivir and Levophed which is being weaned. No new culture data available. Most pressing problems requiring my immediate presence at the bedside: 1. Hypoxemic and hypercapnic respiratory failure requiring mechanical ventilatory support. 2. ARDS as the cause of the above. 3. COVID pneumonia. 4. Bilateral pneumothoraces. 5. Cannot rule out concomitant bacterial pneumonia. 6. Hyperglycemia. At this point, he remains quite critically ill and in view of his increasing physiologic space as the cause of his increasing pCO2 despite no change in his ventilator settings, this portends to a continued poor prognosis. I spoke with the family at the bedside. They are aware of his poor prognosis. I again discussed with them that his survival is not expected. They again wish full support up until he has a cardiac arrest and certainly I do not believe this is at all inappropriate. He is on ulcer and DVT prophylaxis. He is tolerating enteral feed and his sugars are under reasonable control. For now, we will continue his Zosyn based on his elevated white blood cell count and his low-grade fever. I will re-culture him if he spikes another temperature. We are unable to attempt proning due to his multiple lines and tubes and his body habitus. He does not tolerate any changes in his ventilator settings. With the mild interruption of his paralytics this morning he had rapid oxygen desaturation and therefore this will be re-instituted and continued at goal. For now, we will continue as outlined above. His prognosis is grim and there is a very, very high likelihood he will not survive this hospitalization. As outlined above, the family is aware of this. I left the bedside at 0940 hours. Forty-minutes of critical care time at the bedside not including procedures.
[2021-07-25] MEDS: REMDESIVIR 100 MG in NS 250 ML IV SCH (15:26)
[2021-07-25] MEDS: fentaNYL CITRATE 1,000 MCG in NS 80 ML IV SCH (16:46)
[2021-07-25 17:59] LABS: ABG BASE EXCESS 1.2 (-2.0-2.0); ABG HCO3 28.2 MEQ/L (22.0-26.0); ABG O2 SATURATION 77.1 % (95.0-99.0); ABG PARTIAL PRESSURE CO2 55.5 mmHg (35.0-45.0); ABG STANDARD HCO3 25.1 MEQ/L (22.0-26.0); ABG TOTAL CO2 29.9 MEQ/L (22.0-29.0); ABG pH (ARTERIAL) 7.324 UNITS (7.350-7.450)
[2021-07-25 18:03] LABS: ABG PARTIAL PRESSURE O2 41.4 mmHg (75.0-100.0)
[2021-07-25] MEDS: NOREPINEPHRINE BITARTRATE 8 MG in D5W 492 ML IV SCH (20:00)
[2021-07-25] MEDS ORDERED: FUROSEMIDE 40MG/4ML VIAL (J1940) IV ONE (21:50)
[2021-07-25] MEDS ORDERED: FUROSEMIDE 40MG/4ML VIAL (J1940) As Ordered ONE (21:50)
--- NOTE | 2021-07-25 23:40 | CCN ---
CRITICAL CARE NOTE DATE: 07/25/2021 START TIME: 2144 STOP TIME: 2219 SUBJECTIVE: I again attended Augie Ho here in the Intensive Care Unit. I was called for significant decline in his oxygen saturation levels. After being turned, he desaturated again in the 70's, however over the next ensuing little bit, his saturations dropped into the 30's. On my arrival, oxygen saturation was 31%. was at the bedside and I discussed his situation at length with her. She again confirms his DNR status. PHYSICAL EXAMINATION: His breath sounds are equal bilaterally. Chest tubes show no leak. Peak airway pressures are a little higher, now at 44 to 45. Heart rate in the 130's. Blood pressure in the 160's. I's and O's have been somewhat positive. I.V. Lasix was given. Ventilator manipulations were made. The best we can at this point is an oxygen saturation level of 45%. I had a very lengthy discussion with the patient's and sister at the bedside. At this point, they are debating comfort care. In order to do that, however, his paralytics would need to be discontinued and they are somewhat uncomfortable with that and frankly I do not disagree with them at all. For now, we will continue his current level of intervention. We will assure his comfort. I believe it is actually more uncomfortable for him at this point to stop his paralytics as with that, even with heavy sedation, this morning when they were interrupted his work of breathing was significant. We will continue to support him as is. They understand that his survival is not expected and he may actually perish in the next several hours. We will proceed as outlined above. I left the bedside at 0 hours. An additional 35 minutes of total care time at the bedside not including procedures.
[2021-07-26] VITALS (19 sets, daily range): BP systolic 107–124; BP diastolic 53–67
[2021-07-26] MEDS: CISATRACURIUM 200 MG in NS 480 ML IV SCH ×5 (00:48→22:50)
[2021-07-26] MEDS: HumaLOG INSULIN (NovoLOG) PER UNIT SC SCH ×4 (00:57→17:36)
[2021-07-26] MEDS: propofoL 1,000 MG in IV 1 EA IV SCH ×11 (01:18→22:49)
[2021-07-26] MEDS: HEPARIN DRIP 25,000 UNITS in IV 1 EA IV SCH ×3 (02:42→23:29)
[2021-07-26 06:07] LABS: ABG BASE EXCESS 6.4 (-2.0-2.0); ABG HCO3 34.8 MEQ/L (22.0-26.0); ABG PARTIAL PRESSURE O2 69.7 mmHg (75.0-100.0); ABG STANDARD HCO3 30.2 MEQ/L (22.0-26.0); ABG TOTAL CO2 36.9 MEQ/L (22.0-29.0); ABG pH (ARTERIAL) 7.317 UNITS (7.350-7.450)
[2021-07-26 06:09] LABS: ABG PARTIAL PRESSURE CO2 69.5 mmHg (35.0-45.0)
[2021-07-26 06:32] LABS: HEMATOCRIT 38.3 % (42.0-52.0); HEMOGLOBIN 11.7 g/dl (13.5-17.5); MEAN CORPUSCULAR HEMOGLOBIN 30.6 pg (27.0-33.0); MEAN CORPUSCULAR HGB CONC 30.5 g/dl (32.0-36.5); MEAN CORPUSCULAR VOLUME 100.3 fl (80.0-96.0); PLATELET COUNT, AUTOMATED 250 10^3/uL (150-450); RED BLOOD COUNT 3.82 10^6/uL (4.30-6.10); WHITE BLOOD COUNT 20.1 10^3/uL (4.0-10.0)
[2021-07-26] MEDS: SODIUM CHLORIDE 0.9% INJ 10 ML SYR IV SCH ×3 (06:35→17:23)
[2021-07-26] MEDS: PIPERACILLIN/TAZOBACTAM SOD 4.5 GM in D5W MINI-BAG PLUS 50 ML IV SCH ×3 (06:36→17:33)
[2021-07-26] MEDS ORDERED: FUROSEMIDE 100MG/10ML VIAL (J1940) IV ONE (06:50)
[2021-07-26] MEDS: IPRATROPIUM 0.5MG/ALBUTEROL 2.5MG INH SOL UD 3ML (DUONEB) NEB SCH ×4 (07:36→18:08)
[2021-07-26] MEDS: CHLORHEXIDINE GLUCONATE 0.12 % 15ML UDC (PERIDEX ORAL RINSE) MT SCH ×2 (07:46→20:26)
[2021-07-26] MEDS: PANTOPRAZOLE 40MG VIAL (C9113 PER 1) IV SCH (07:46)
[2021-07-26] MEDS: BARICITINIB 2MG TABLET (OLUMIANT) FOR EUA PO SCH (07:46)
[2021-07-26] MEDS: SODIUM CHLORIDE 0.9% INJ 10 ML SYR IV PRN (07:47)
[2021-07-26 08:00] LABS: ABG BASE EXCESS 7.1 (-2.0-2.0); ABG HCO3 37.6 MEQ/L (22.0-26.0); ABG O2 SATURATION 84.9 % (95.0-99.0); ABG PARTIAL PRESSURE O2 54.7 mmHg (75.0-100.0); ABG STANDARD HCO3 30.6 MEQ/L (22.0-26.0); ABG TOTAL CO2 40.3 MEQ/L (22.0-29.0); ABG pH (ARTERIAL) 7.251 UNITS (7.350-7.450)
[2021-07-26 08:01] LABS: ABG PARTIAL PRESSURE CO2 87.6 mmHg (35.0-45.0)
[2021-07-26 08:41] LABS: ALBUMIN 2.1 GM/DL (3.2-5.2); ALT/SGPT 50 U/L (12-78); BILIRUBIN,TOTAL 0.4 MG/DL (0.2-1.0); BLOOD UREA NITROGEN 20 MG/DL (7-18); CALCIUM LEVEL 7.8 MG/DL (8.5-10.1); CARBON DIOXIDE LEVEL 36 MEQ/L (21-32); CHLORIDE LEVEL 104 MEQ/L (98-107); CREATININE FOR GFR 0.66 MG/DL (0.70-1.30); GLOMERULAR FILTRATION RATE > 60.0 (>60); GLUCOSE, FASTING 116 MG/DL (70-100); SODIUM LEVEL 142 MEQ/L (136-145); TOTAL PROTEIN 5.9 GM/DL (6.4-8.2)
--- NOTE | 2021-07-26 09:07 | REP ---
INDICATION: Hypoxemia COMPARISON: 07/25/2021 TECHNIQUE: Portable AP view of the chest FINDINGS: Lines and tubes are in stable satisfactory position. Bilateral pleuroparenchymal changes are again noted and similar to prior examination when allowing for variation in technique. IMPRESSION: No significant change from prior examination. Continued diffuse bilateral opacities. <Electronically signed by Raz Diaz > 07/26/21 0993
--- NOTE | 2021-07-26 09:23 | CCN ---
CRITICAL CARE NOTE DATE: 07/15/2021 START TIME: 739 STOP TIME: 821 SUBJECTIVE: I again attended Augie Ho. In the last hour, we have had significant difficulty ventilating him. He was ventilated with an Ambu bag valve device. Multiple ventilator manipulations were made. At this point, we have been able to settle on an assist control mode, tidal volume 430, rate of 15. PEEP remains at 50 and FiO2 of 100%. I saw it as a positive 0.15 seconds. Blood gas done on those settings shows pH 7.251, pCO2 87.6, pO2 of 54.7, saturation 84.9%. Currently, saturation 81% on the monitor. and sister remain at the bedside. T max overnight 98.8, heart rate generally 100-130, blood pressure 107 to 122 systolic. Ins and outs, midnight to midnight 3745 mL in with 3315 mL out. White blood cell count 20.1, hemoglobin 11.7, platelet count of 250,000. Electrolytes are currently pending. PTT remains therapeutic at 64.6. No new imaging today. PHYSICAL EXAMINATION: General: He is sedate and medically paralyzed. HEENT: Pupils are small. Membranes are moist. Lines and tubes noted with oral endotracheal, orogastric and a right internal jugular line. He has bilateral chest tubes. Membranes are moist. Chest: Shows diminished but symmetric expansion. There is some inspiratory squeak noted. Heart exam: Distant, tachycardic but regular. Peripheral pulses are palpable. Diffuse trace edema. Abdomen: Mildly distended, bowel sounds markedly hypoactive. No convincing organomegaly or masses. Extremities: Show no cyanosis or clubbing. Neurologic: He is sedate. The most pressing problems requiring my immediate presence at the bedside: 1. Acute hypoxemic and hypercapnic respiratory failure. 2. COVID pneumonia/ARDS. 3. DNR status. I again had a lengthy discussion with the and sister at the bedside. They are still entertaining comfort care should we not make any headway. Certainly that is not out of realm of conversations as I believe his long-term prognosis is extremely grim. Despite maximal efforts, he still gets periods of significant oxygen desaturations and I am quite concerned about underlying anoxic encephalopathy. Certainly I am in agreement with our current level of care given that at times we are able to improve his oxygen saturations. At this point, we will allow permissive hypercapnia as his lungs have become quite stiff with plateau pressures in the 40s despite multiple ventilator manipulations. We will try to decrease overall lung water with the use of diuretics. We have minimized fluids as best we can at this point. I await his electrolytes. For now, we will continue his baricitinib, full dose heparin, propofol, versed and his cisatracurium. Remdesivir is also being continued. He has been able to be off the Levophed. We will continue IV Zosyn empirically as well. I will recheck a chest x-ray today although his chest tube showed no obvious air leak and certainly given his status, I believe that even a small recurrent pneumothorax may result in his immediate demise. The family is quite aware of his tenuous status. They remain at the bedside. I will continue as outlined above but survival is not expected. I left the bedside at 0822 hours. 42 minutes of critical care time were at the bedside not including procedures.
[2021-07-26] MEDS: fentaNYL CITRATE 1,000 MCG in NS 80 ML IV SCH (11:58)
[2021-07-26] MEDS: REMDESIVIR 100 MG in NS 250 ML IV SCH (13:47)
[2021-07-26] MEDS: FUROSEMIDE 100MG/10ML VIAL (J1940) IV SCH ×2 (14:00→22:47)
[2021-07-26] MEDS: NOREPINEPHRINE BITARTRATE 8 MG in D5W 492 ML IV SCH (19:52)
[2021-07-27] VITALS (23 sets, daily range): BP systolic 106–138; BP diastolic 53–64
[2021-07-27] MEDS: propofoL 1,000 MG in IV 1 EA IV SCH ×15 (00:02→23:06)
[2021-07-27] MEDS: PIPERACILLIN/TAZOBACTAM SOD 4.5 GM in D5W MINI-BAG PLUS 50 ML IV SCH ×4 (00:51→18:14)
[2021-07-27] MEDS: CISATRACURIUM 200 MG in NS 480 ML IV SCH ×7 (02:08→23:05)
[2021-07-27] MEDS: fentaNYL CITRATE 1,000 MCG in NS 80 ML IV SCH ×2 (05:24→15:31)
[2021-07-27] MEDS: HumaLOG INSULIN (NovoLOG) PER UNIT SC SCH ×4 (05:40→18:00)
[2021-07-27] MEDS: SODIUM CHLORIDE 0.9% INJ 10 ML SYR IV SCH ×3 (05:42→16:35)
[2021-07-27] MEDS: FUROSEMIDE 100MG/10ML VIAL (J1940) IV SCH (06:07)
[2021-07-27 06:21] LABS: ABG BASE EXCESS 16.5 (-2.0-2.0); ABG HCO3 45.7 MEQ/L (22.0-26.0); ABG O2 SATURATION 93.7 % (95.0-99.0); ABG PARTIAL PRESSURE O2 71.5 mmHg (75.0-100.0); ABG STANDARD HCO3 40.3 MEQ/L (22.0-26.0); ABG TOTAL CO2 48.3 MEQ/L (22.0-29.0)
[2021-07-27 06:23] LABS: HEMATOCRIT 37.5 % (42.0-52.0); HEMOGLOBIN 11.2 g/dl (13.5-17.5); MEAN CORPUSCULAR HEMOGLOBIN 30.5 pg (27.0-33.0); MEAN CORPUSCULAR HGB CONC 29.9 g/dl (32.0-36.5); MEAN CORPUSCULAR VOLUME 102.2 fl (80.0-96.0); PLATELET COUNT, AUTOMATED 231 10^3/uL (150-450); RED BLOOD COUNT 3.67 10^6/uL (4.30-6.10); WHITE BLOOD COUNT 20.6 10^3/uL (4.0-10.0)
[2021-07-27 06:25] LABS: ABG PARTIAL PRESSURE CO2 82.8 mmHg (35.0-45.0)
[2021-07-27 07:17] LABS: ALT/SGPT 45 U/L (12-78); BILIRUBIN,TOTAL 0.6 MG/DL (0.2-1.0); BLOOD UREA NITROGEN 21 MG/DL (7-18); CALCIUM LEVEL 7.3 MG/DL (8.5-10.1); CARBON DIOXIDE LEVEL 43 MEQ/L (21-32); CHLORIDE LEVEL 96 MEQ/L (98-107); CREATININE FOR GFR 0.63 MG/DL (0.70-1.30); GLOMERULAR FILTRATION RATE > 60.0 (>60); GLUCOSE, FASTING 105 MG/DL (70-100); POTASSIUM SERUM 4.6 MEQ/L (3.5-5.1); SODIUM LEVEL 144 MEQ/L (136-145); TOTAL PROTEIN 6.1 GM/DL (6.4-8.2)
[2021-07-27] MEDS: IPRATROPIUM 0.5MG/ALBUTEROL 2.5MG INH SOL UD 3ML (DUONEB) NEB SCH ×4 (07:24→19:34)
[2021-07-27] MEDS: PANTOPRAZOLE 40MG VIAL (C9113 PER 1) IV SCH (07:52)
[2021-07-27] MEDS: CHLORHEXIDINE GLUCONATE 0.12 % 15ML UDC (PERIDEX ORAL RINSE) MT SCH ×2 (07:52→22:10)
[2021-07-27] MEDS: HEPARIN SOD (PORCINE) 5000UNITS/ML 1ML VIAL/SYRINGE IV PRN (07:53)
[2021-07-27] MEDS: BARICITINIB 2MG TABLET (OLUMIANT) FOR EUA PO SCH (07:53)
[2021-07-27] MEDS: HEPARIN DRIP 25,000 UNITS in IV 1 EA IV SCH ×4 (07:56→19:38)
--- NOTE | 2021-07-27 08:02 | REP ---
INDICATION: RESPIRATORY FAILURE COMPARISON: 07/26/2021 TECHNIQUE: Portable AP view of the chest FINDINGS: Lines and tubes including bilateral chest tubes are in stable satisfactory position. Cardiac silhouette is stable. Diffuse bilateral opacities and elements of atelectasis/consolidation essentially unchanged. No obvious definite effusion. No obvious pneumothorax. IMPRESSION: 1. Lines and tubes in satisfactory position. 2. Diffuse opacities and consolidations/atelectasis unchanged. 3. No obvious effusion or pneumothorax identified by portable x-ray. <Electronically signed by Raz Diaz > 07/27/21 [id number]
--- NOTE | 2021-07-27 10:30 | CCN ---
CRITICAL CARE NOTE DATE: 07/27/2021 START TIME: 0900. STOP TIME: 0947. SUBJECTIVE: The patient remains intubated, sedated, mechanically ventilated and medically paralyzed. I have spoken at length with the at the bedside as well as with his nurse. T-max overnight 98.4, blood pressure 106 to 114. He has not required re-addition of vasopressors. Heart rate 110 to occasionally 130 with sinus mechanism. He does not overbreathe the ventilator as he is medically paralyzed. Current pulse oximetry 93% on assist control of 15, tidal volume 430, PEEP of 15 and FiO2 of 100%. Blood gas done on this setting shows pH 7.360, pCO2 82.8, p02 of 71.5 Ins and outs, midnight to midnight 4330 mL in with 6436 mL out. Other laboratories show white blood cell count 20.6, hemoglobin 11.2, platelet count of 231,000. Sodium 144, potassium 4.6, chloride 96, CO2 43, BUN 21, creatinine 0.63, glucose 105. Medication list has been reviewed. He is still on standing doses of Lasix as well as Baricitinib, his Remdesivir, Zosyn, Decadron as well as sedating and paralytic drips. He is fully anticoagulated with Heparin. PHYSICAL EXAMINATION: GENERAL: He is sedate and appears comfortable. HEENT: Pupils are reactive. Membranes are moist. NECK: Trachea midline, no obvious JVD. CHEST: Bilateral chest tubes remain in place. There is no obvious air leak. Lung sounds are reasonable and symmetric. CARDIAC: Mildly tachycardic but regular. Peripheral pulses are palpable. Diffuse edema unchanged. ABDOMEN: Mildly distended, bowel sounds are faint. No obvious organomegaly or masses. EXTREMITIES: Shows him to be medically paralyzed and we are not stopping this for reevaluation today due to his very tenuous state. The most pressing problems requiring my immediate presence at the bedside: 1. Hypoxemic respiratory failure. 2. COVID pneumonia/ARDS. 3. Electrolyte abnormality/iatrogenic. 4. DNR status. I had a very lengthy discussion with the concerning his current status. He has a significant elevation of his pCO2 as well as serum bicarb and this is all on the basis of the diuretics. It appears, however, that decreasing his overall "lung water" has improved his oxygenation status. I will therefore change from Furosemide to Diamox and we will continue to monitor his electrolytes closely. His clearly understands that his prognosis remains overall grim but as long as we are at least holding our own or making headway I have no problems continuing our current course. He remains fully anticoagulated. He has ulcer prophylaxis in place. He is on antimicrobials as well. We will slowly begin trickle feeds again today. I will continue to monitor his I's and O's as clearly at least at this point I believe trying to keep him matched may benefit us or even drying him out a little bit more but using the Acetazolamide. His survival remains unexpected but will continue as outlined above. I left the bedside at 0947 hours. 47 minutes of critical care time delivered at the bedside not including procedures.
[2021-07-27] MEDS: REMDESIVIR 100 MG in NS 250 ML IV SCH (14:02)
[2021-07-27] MEDS: SODIUM CHLORIDE 0.9% INJ 10 ML SYR IV PRN (14:03)
[2021-07-27 14:27] LABS: INR 1.45; PROTHROMBIN TIME 18.1 SECONDS (12.7-14.5)
[2021-07-27 15:02] LABS: PARTIAL THROMBOPLASTIN TIME 130.8 SECONDS (25.9-37.0)
[2021-07-27 22:58] LABS: INR 1.36; PROTHROMBIN TIME 17.2 SECONDS (12.7-14.5)
[2021-07-27 23:00] LABS: PARTIAL THROMBOPLASTIN TIME 77.3 SECONDS (25.9-37.0)
[2021-07-28] VITALS (22 sets, daily range): BP systolic 99–146; BP diastolic 51–72
[2021-07-28] MEDS: PIPERACILLIN/TAZOBACTAM SOD 4.5 GM in D5W MINI-BAG PLUS 50 ML IV SCH ×4 (00:34→18:16)
[2021-07-28] MEDS: propofoL 1,000 MG in IV 1 EA IV SCH ×13 (00:58→22:08)
[2021-07-28] MEDS: CISATRACURIUM 200 MG in NS 480 ML IV SCH ×5 (02:31→21:17)
[2021-07-28] MEDS: fentaNYL CITRATE 1,000 MCG in NS 80 ML IV SCH ×3 (04:44→17:10)
[2021-07-28 04:52] LABS: HEMATOCRIT 35.9 % (42.0-52.0); HEMOGLOBIN 10.6 g/dl (13.5-17.5); MEAN CORPUSCULAR HEMOGLOBIN 30.7 pg (27.0-33.0); MEAN CORPUSCULAR HGB CONC 29.5 g/dl (32.0-36.5); MEAN CORPUSCULAR VOLUME 104.1 fl (80.0-96.0); PLATELET COUNT, AUTOMATED 223 10^3/uL (150-450); RED BLOOD COUNT 3.45 10^6/uL (4.30-6.10); WHITE BLOOD COUNT 17.4 10^3/uL (4.0-10.0)
[2021-07-28 05:05] LABS: INR 1.38; PROTHROMBIN TIME 17.4 SECONDS (12.7-14.5)
[2021-07-28 05:07] LABS: PARTIAL THROMBOPLASTIN TIME 73.5 SECONDS (25.9-37.0)
[2021-07-28] MEDS: SODIUM CHLORIDE 0.9% INJ 10 ML SYR IV SCH ×3 (05:49→18:00)
[2021-07-28] MEDS: HumaLOG INSULIN (NovoLOG) PER UNIT SC SCH ×4 (05:49→18:00)
[2021-07-28 05:56] LABS: ALT/SGPT 44 U/L (12-78); BILIRUBIN,TOTAL 0.5 MG/DL (0.2-1.0); BLOOD UREA NITROGEN 20 MG/DL (7-18); CALCIUM LEVEL 7.6 MG/DL (8.5-10.1); CARBON DIOXIDE LEVEL 45 MEQ/L (21-32); CHLORIDE LEVEL 99 MEQ/L (98-107); CREATININE FOR GFR 0.58 MG/DL (0.70-1.30); GLOMERULAR FILTRATION RATE > 60.0 (>60); GLUCOSE, FASTING 111 MG/DL (70-100); POTASSIUM SERUM 4.5 MEQ/L (3.5-5.1); SODIUM LEVEL 145 MEQ/L (136-145); TOTAL PROTEIN 6.1 GM/DL (6.4-8.2)
[2021-07-28 06:12] LABS: ABG BASE EXCESS 17.5 (-2.0-2.0); ABG HCO3 48.1 MEQ/L (22.0-26.0); ABG O2 SATURATION 92.6 % (95.0-99.0); ABG PARTIAL PRESSURE O2 66.2 mmHg (75.0-100.0); ABG STANDARD HCO3 41.4 MEQ/L (22.0-26.0); ABG TOTAL CO2 51.2 MEQ/L (22.0-29.0); ABG pH (ARTERIAL) 7.297 UNITS (7.350-7.450)
[2021-07-28 06:15] LABS: ABG PARTIAL PRESSURE CO2 100.7 mmHg (35.0-45.0)
[2021-07-28] MEDS: HEPARIN DRIP 25,000 UNITS in IV 1 EA IV SCH ×2 (06:28→17:12)
[2021-07-28] MEDS: BARICITINIB 2MG TABLET (OLUMIANT) FOR EUA PO SCH (08:02)
[2021-07-28] MEDS: CHLORHEXIDINE GLUCONATE 0.12 % 15ML UDC (PERIDEX ORAL RINSE) MT SCH ×2 (08:02→21:20)
[2021-07-28] MEDS: PANTOPRAZOLE 40MG VIAL (C9113 PER 1) IV SCH (08:02)
--- NOTE | 2021-07-28 08:28 | REP ---
INDICATION: RESPIRATORY FAILURE COMPARISON: 07/27/2021 TECHNIQUE: Portable AP view of the chest FINDINGS: Endotracheal tube 5 cm above the danita. Right IJ line with tip in the SVC. Nasogastric tube courses below left hemidiaphragm. Bilateral chest tubes in stable position. Mediastinum and cardiac silhouette are stable. Lung justni suggest mildly improved aeration to the right hemithorax with suspected continued left perihilar and lower lobe opacity. No pneumothorax. No obvious effusion. IMPRESSION: 1. Lines and tubes in stable satisfactory position. 2. Findings suggest improved aeration to the right hemithorax with continued perihilar and lower lobe opacities in the left hemithorax. <Electronically signed by Raz Diaz > 07/28/21 [id number]
[2021-07-28] MEDS: IPRATROPIUM 0.5MG/ALBUTEROL 2.5MG INH SOL UD 3ML (DUONEB) NEB SCH ×4 (08:54→21:05)
--- NOTE | 2021-07-28 11:28 | CCN ---
CRITICAL CARE NOTE DATE: 07/28/2021 START TIME: 829. STOP TIME: 914. SUBJECTIVE: I again attended Augie Ho here in the intensive care unit. Patient examined and chart reviewed. I have spoken at length with the nurses as well as his at the bedside. T-max overnight 100.2, blood pressure 90 to 130s. Heart rate generally in the low 100s, respiratory rate 15 and on rare occasion he does overbreathe the ventilator despite low dose Nimbex. He remains intubated, sedated and medically paralyzed. He has been able to remain off of Levophed. Most recent laboratories show white blood cell count 17.4, hemoglobin 10.6, platelet count of 223,000 on differential today. Sodium 145, potassium 4.5, chloride 99, CO2 45, BUN 20, creatinine 0.58, glucose 111. Albumin 2.0. Blood gas done on assist control rate of 15, tidal volume 430, PEEP 15, FiO2 100% has pH 7.297, pCO2 100.7, p02 of 66.2. Saturation 92.6%. Heparin is therapeutic. Medication list has been reviewed. He remains on Baricitinib, Remdesivir and Decadron. He is fully anticoagulated with Heparin drip. He receives Morphine and Ativan as needed. He is on Propofol, Fentanyl and Nimbex in the form of continuous infusions. He was started on daily Acetazolamide but has not had much in the way of diuresis and this was increased to twice daily. He remains on empiric Zosyn. PHYSICAL EXAMINATION: GENERAL: He is sedated, paralyzed and ill-appearing. Intermittently diaphoretic. Lines and tubes noted in good position. HEENT: Membranes are moist. NECK: Trachea midline. CHEST: Bilateral chest tubes noted. No obvious air leak. Expansion of the chest is bilaterally symmetrical although markedly diminished. CARDIAC: Distant, generally regular. Peripheral pulses are palpable. Edema unchanged. ABDOMEN: Obese, soft, very faint bowel sounds noted but no convincing organomegaly or masses. EXTREMITIES: Show no signs of clubbing. NEUROLOGICAL: He is sedated. The most pressing problems requiring my presence at the bedside: 1. Hypoxemic and hypercapnic respiratory failure. 2. COVID pneumonia/ARDS. 3. Electrolyte abnormalities. 4. Bilateral pneumothoraces with chest tubes in place. I again had a very lengthy conversation at the bedside with his . She understands the gravity of his situation. Mild ventilator changes were made. Some of his bicarb and pCO2 issues are on the basis of his diuresis but his oxygenation did improve with that. We certainly cannot use the loop diuretics such as Lasix or Demadex in view of the above. I have started Diamox. We have not achieved fluid balance and I will therefore gently increase the dose. We will see if he tolerates a little bit more in the way of minute volume to help with this as well. He has been fairly intolerant of that and his plateau pressures remain quite elevated. Fortunately he does have bilateral chest tubes in place and there is no air leak and at least in view of his high plateau pressures this is at least somewhat of a comfort. Will continue his current medication regimen. He remains marginal at best. We will increase his tube feeds as he is tolerating these a little bit better. I will make sure he has PRN cathartics. Ulcer and DVT prophylaxis are in place. We will proceed as outlined above. His understands the gravity of the situation and the very likelihood that he will not survive. I again discussed with her the multiple bouts of profound hypoxemia that he has had certainly may result in significant as yet unrecognized anoxic encephalopathy. She conveys understanding. I left the bedside 0915 hours.45 minutes of critical care delivered at the bedside not including procedures.
[2021-07-28] MEDS: REMDESIVIR 100 MG in NS 250 ML IV SCH (14:40)
[2021-07-28] MEDS ORDERED: fentaNYL 100 MCG/2 ML INJECTION (J3010) As Ordered ONE (16:50)
[2021-07-28] MEDS ORDERED: fentaNYL 100 MCG/2 ML INJECTION (J3010) IV ONE (16:50)
[2021-07-28 18:58] LABS: ABG BASE EXCESS 9.1 (-2.0-2.0); ABG HCO3 39.9 MEQ/L (22.0-26.0); ABG O2 SATURATION 79.9 % (95.0-99.0); ABG STANDARD HCO3 32.4 MEQ/L (22.0-26.0); ABG TOTAL CO2 42.9 MEQ/L (22.0-29.0)
[2021-07-28 18:59] LABS: ABG PARTIAL PRESSURE CO2 97.6 mmHg (35.0-45.0); ABG PARTIAL PRESSURE O2 47.7 mmHg (75.0-100.0); ABG pH (ARTERIAL) 7.229 UNITS (7.350-7.450)
--- NOTE | 2021-07-28 19:02 | REP ---
INDICATION: Decreased O2 sats, check chest tube placement. COMPARISON: 07/28/2021 TECHNIQUE: Portable AP view of the chest FINDINGS: Endotracheal tube 5 cm above the danita. Nasogastric tube courses below left hemidiaphragm. Right IJ line with tip in the SVC. Right PICC line in stable position. Bilateral chest tubes in stable position. Diffuse bilateral opacities and consolidations are essentially unchanged by radiographic evaluation. Small layering effusions cannot be excluded. No pneumothorax. IMPRESSION: 1. Lines and tubes in stable satisfactory position. 2. Bilateral opacities/consolidations unchanged. <Electronically signed by Raz Diaz > 07/28/21 [id number]
[2021-07-28] MEDS: dexameTHASONE 20MG/5ML VIAL (J1100 PER 1MG) IV SCH (21:20)
[2021-07-29] VITALS (18 sets, daily range): BP systolic 104–127; BP diastolic 52–60
[2021-07-29] MEDS: CISATRACURIUM 200 MG in NS 480 ML IV SCH ×6 (00:01→21:31)
[2021-07-29] MEDS: propofoL 1,000 MG in IV 1 EA IV SCH ×13 (00:04→21:30)
[2021-07-29] MEDS: fentaNYL CITRATE 1,000 MCG in NS 80 ML IV SCH ×3 (03:41→23:26)
[2021-07-29] MEDS: HEPARIN DRIP 25,000 UNITS in IV 1 EA IV SCH ×3 (05:20→17:56)
[2021-07-29] MEDS: HEPARIN SOD (PORCINE) 5000UNITS/ML 1ML VIAL/SYRINGE IV PRN (05:25)
[2021-07-29 06:03] LABS: INR 1.38; PROTHROMBIN TIME 17.4 SECONDS (12.7-14.5)
[2021-07-29] MEDS: SODIUM CHLORIDE 0.9% INJ 10 ML SYR IV SCH ×2 (06:11→17:22)
[2021-07-29 06:49] LABS: ABG BASE EXCESS 7.3 (-2.0-2.0); ABG HCO3 37.6 MEQ/L (22.0-26.0); ABG O2 SATURATION 90.5 % (95.0-99.0); ABG PARTIAL PRESSURE O2 64.8 mmHg (75.0-100.0); ABG STANDARD HCO3 30.9 MEQ/L (22.0-26.0); ABG TOTAL CO2 40.4 MEQ/L (22.0-29.0)
[2021-07-29 06:52] LABS: ABG pH (ARTERIAL) 7.229 UNITS (7.350-7.450)
[2021-07-29] MEDS: HumaLOG INSULIN (NovoLOG) PER UNIT SC SCH ×4 (06:59→17:13)
[2021-07-29] MEDS: PIPERACILLIN/TAZOBACTAM SOD 4.5 GM in D5W MINI-BAG PLUS 50 ML IV SCH ×5 (06:59→17:23)
[2021-07-29] MEDS: IPRATROPIUM 0.5MG/ALBUTEROL 2.5MG INH SOL UD 3ML (DUONEB) NEB SCH ×4 (07:24→20:25)
[2021-07-29] MEDS: BARICITINIB 2MG TABLET (OLUMIANT) FOR EUA PO SCH (08:08)
[2021-07-29] MEDS: PANTOPRAZOLE 40MG VIAL (C9113 PER 1) IV SCH (08:08)
[2021-07-29] MEDS: CHLORHEXIDINE GLUCONATE 0.12 % 15ML UDC (PERIDEX ORAL RINSE) MT SCH ×2 (08:08→21:38)
[2021-07-29] MEDS: dexameTHASONE 20MG/5ML VIAL (J1100 PER 1MG) IV SCH ×2 (08:09→21:38)
--- NOTE | 2021-07-29 08:14 | REP ---
INDICATION: RESPIRATORY FAILURE COMPARISON: 07/28/2021 TECHNIQUE: Portable AP view of the chest FINDINGS: Lines and tubes are in stable satisfactory position. Mediastinum and cardiac silhouette are unchanged. Diffuse bilateral pleuroparenchymal changes are essentially stable. IMPRESSION: No change from prior examination. <Electronically signed by Raz Diaz > 07/29/21 [id number]
[2021-07-29 09:01] LABS: BASO # 0.1 10^3/uL (0.0-0.2); BASO % 0.3 % (0.0-1.0); EOS % 0.1 % (0.0-3.0); HEMATOCRIT 35.1 % (42.0-52.0); HEMOGLOBIN 10.6 g/dl (13.5-17.5); LYMPH # 0.6 10^3/uL (1.5-5.0); LYMPH % 3.1 % (24.0-44.0); MEAN CORPUSCULAR HEMOGLOBIN 31.5 pg (27.0-33.0); MEAN CORPUSCULAR HGB CONC 30.2 g/dl (32.0-36.5); MEAN CORPUSCULAR VOLUME 104.5 fl (80.0-96.0); MONO # 0.3 10^3/uL (0.0-0.8); MONO % 1.8 % (2.0-8.0); NEUTROPHILS # 16.7 10^3/uL (1.5-8.5); NEUTROPHILS % 92.5 % (36.0-66.0); PLATELET COUNT, AUTOMATED 187 10^3/uL (150-450); RED BLOOD COUNT 3.36 10^6/uL (4.30-6.10)
--- NOTE | 2021-07-29 09:25 | REP ---
INDICATION: ETT exchange COMPARISON: 07/29/2021 TECHNIQUE: Portable AP view of the chest FINDINGS: Endotracheal tube, nasogastric tube, right IJ line, right PICC line and bilateral chest tubes are in stable position. Endotracheal tube 4.5 cm above the danita. Bilateral pleuroparenchymal changes remain stable. No new acute process identified. IMPRESSION: No significant change from prior examination. <Electronically signed by Raz Diaz > 07/29/21 [id number]
[2021-07-29 09:47] LABS: ALT/SGPT 60 U/L (12-78); BILIRUBIN,TOTAL 0.6 MG/DL (0.2-1.0); BLOOD UREA NITROGEN 18 MG/DL (7-18); CARBON DIOXIDE LEVEL 39 MEQ/L (21-32); CHLORIDE LEVEL 99 MEQ/L (98-107); CHOLESTEROL LEVEL 142 MG/DL (< 200); CPK CREATINE PHOSPHOKINASE 2709 U/L (39-308); CREATININE FOR GFR 0.56 MG/DL (0.70-1.30); GLOMERULAR FILTRATION RATE > 60.0 (>60); GLUCOSE, FASTING 159 MG/DL (70-100); LDH LACTATE DEHYDROGENASE 645 U/L (87-241); PHOSPHORUS LEVEL 2.6 MG/DL (2.5-4.9); POTASSIUM SERUM 4.3 MEQ/L (3.5-5.1); SODIUM LEVEL 141 MEQ/L (136-145); TOTAL PROTEIN 6.5 GM/DL (6.4-8.2); TRIGLYCERIDES LEVEL 182 MG/DL (<150)
--- NOTE | 2021-07-29 10:16 | RO ---
OPERATIVE NOTE DATE OF OPERATION: 07/29/2021 PREOPERATIVE DIAGNOSIS: ARDS. POSTOPERATIVE DIAGNOSIS: ARDS. PROCEDURE: Exchange of endotracheal tube. SURGEON: Davian Byers MD DEGREE CLERK: ANESTHESIA: DESCRIPTION OF PROCEDURE: Procedure was performed emergently. After the patient was ventilated with an Ambu bag-valve device using a tube exchanger a new #8.0 tube was placed. Tube advanced easily. It was placed in the same level at the corner of the mouth as the previous tube. Balloon was inflated. The patient was bagged. Good color change on the CO2 detector. Good bilateral breath sounds. Oxygen saturations improved postprocedure. Chest x-ray done immediately postprocedure shows the endotracheal tube to be in good position. No immediate complications noted.
--- NOTE | 2021-07-29 10:16 | CCN ---
CRITICAL CARE NOTE DATE: 07/29/2021 START TIME: 834 STOP TIME: 913 SUBJECTIVE: I again attended Augie Ho here in the Intensive Care Unit. Patient has been examined. Chart reviewed. This morning we have been unable to pass the suction catheter past the mid portion of his tube. His peak and plateau pressures are markedly elevated. Tube was, therefore, exchanged over tube exchanger occupying less than 5 minutes time. Initially peak airway pressures came down into the 30s but within 5 minutes were back up into the 50s. We were able to easily pass the suction catheter. Chest x-ray showed on new findings and the ET tube in good position. T-max overnight 98.9. Blood pressure 117 to 120s. He has not required vasopressors. Heart rate in the low 100s. Respiratory rate 18 via the vent. Pulse oximetry ranges from 77 to 82% on 100% FiO2, 15 of PEEP and assist control, mode rate of 18, tidal volume 430. Blood gas done on those settings shows a pH of 7.229, pCO2 92.0, and a PaO2 of 64.8. Ins and outs midnight to midnight 4,526 mL in with 2,364 mL out. Other laboratories show a white blood cell count of 18.0, hemoglobin 10.6, platelet count 187,000, 92% segs, no bands. Chemistries currently pending. Heparin therapeutic with a PTT of 85 this morning. OBJECTIVE: GENERAL: He is medically paralyzed and sedated. HEENT: Pupils do react. NECK: Trachea is in the midline. CHEST: Chest shows diminished but symmetric expansion. Clear anteriorly. Some minimal crackles at the bases. No convincing rhonchi or wheezes. CARDIAC: Distant, tachycardic but regular. Peripheral pulses palpable. Mild edema throughout. ABDOMEN: Obese. Bowel sounds are hypoactive. No obvious organomegaly or masses. EXTREMITIES: No cyanosis or clubbing. NEUROLOGIC: He is sedated. MEDICATIONS: Med list has been reviewed. He remains on: 1. Baricitinib. 2. Full dose heparin. 3. Morphine. 4. Versed. 5. Propofol. 6. Fentanyl drip. 7. Nimbex for paralytics. 8. Zosyn. 9. Decadron. 10. Diamox. MOST PRESSING PROBLEMS REQUIRING MY IMMEDIATE PRESENCE AT THE BEDSIDE: 1. ARDS/COVID pneumonia. 2. Hypoxemic and hypercapnic respiratory failure on the basis of the above. 3. DNR status. 4. Full dose anticoagulation. I discussed the situation again at the bedside with his . She understands the critical nature of his illness. We are having more difficulties with his oxygenation status despite the above. His peak airway pressures are again elevated. I have nothing to suggest mucous plugging, and his tube has been exchanged. My concern is that even to empirically to try to perform bronchoscopy in him would clearly result in his as he had a rapid plummet in his oxygen saturations even with the brief period of time to exchange his tube. I explained this to her, and she conveys understanding. At this point, we will continue as outlined above. He was intolerant of his tube feeds with high residuals. Will continue as outlined above. She confirms that if his heart should stop she does not wish him resuscitated. I left the bedside at 0914 hours. Thirty-nine minutes of critical care time was at the bedside with less than 5 minutes time including procedures.
[2021-07-30] VITALS (17 sets, daily range): BP systolic 101–116; BP diastolic 51–58
[2021-07-30] MEDS: HumaLOG INSULIN (NovoLOG) PER UNIT SC SCH ×4 (00:53→17:56)
[2021-07-30] MEDS: PIPERACILLIN/TAZOBACTAM SOD 4.5 GM in D5W MINI-BAG PLUS 50 ML IV SCH ×4 (00:53→17:47)
[2021-07-30] MEDS: propofoL 1,000 MG in IV 1 EA IV SCH ×13 (03:47→23:23)
[2021-07-30] MEDS: HEPARIN DRIP 25,000 UNITS in IV 1 EA IV SCH ×2 (03:48→15:36)
[2021-07-30] MEDS: CISATRACURIUM 200 MG in NS 480 ML IV SCH ×7 (04:20→20:42)
[2021-07-30 05:26] LABS: BASO % 0.3 % (0.0-1.0); HEMATOCRIT 31.1 % (42.0-52.0); HEMOGLOBIN 9.3 g/dl (13.5-17.5); LYMPH # 0.5 10^3/uL (1.5-5.0); LYMPH % 4.6 % (24.0-44.0); MEAN CORPUSCULAR HEMOGLOBIN 30.9 pg (27.0-33.0); MEAN CORPUSCULAR HGB CONC 29.9 g/dl (32.0-36.5); MEAN CORPUSCULAR VOLUME 103.3 fl (80.0-96.0); MONO # 0.4 10^3/uL (0.0-0.8); MONO % 3.1 % (2.0-8.0); NEUTROPHILS # 10.3 10^3/uL (1.5-8.5); NEUTROPHILS % 87.2 % (36.0-66.0); PLATELET COUNT, AUTOMATED 176 10^3/uL (150-450); RED BLOOD COUNT 3.01 10^6/uL (4.30-6.10); WHITE BLOOD COUNT 11.8 10^3/uL (4.0-10.0)
[2021-07-30 05:40] LABS: INR 1.37; PROTHROMBIN TIME 17.3 SECONDS (12.7-14.5)
[2021-07-30 05:43] LABS: PARTIAL THROMBOPLASTIN TIME 100.4 SECONDS (25.9-37.0)
[2021-07-30 06:20] LABS: ABG BASE EXCESS 5.9 (-2.0-2.0); ABG HCO3 36.3 MEQ/L (22.0-26.0); ABG O2 SATURATION 91.9 % (95.0-99.0); ABG PARTIAL PRESSURE O2 70.3 mmHg (75.0-100.0); ABG STANDARD HCO3 29.7 MEQ/L (22.0-26.0); ABG TOTAL CO2 39.2 MEQ/L (22.0-29.0)
[2021-07-30 06:26] LABS: ABG PARTIAL PRESSURE CO2 95.8 mmHg (35.0-45.0); ABG pH (ARTERIAL) 7.196 UNITS (7.350-7.450)
[2021-07-30] MEDS: SODIUM CHLORIDE 0.9% INJ 10 ML SYR IV SCH ×2 (06:44→17:40)
[2021-07-30 07:02] LABS: ALBUMIN 1.8 GM/DL (3.2-5.2); ALT/SGPT 55 U/L (12-78); BILIRUBIN,TOTAL 0.5 MG/DL (0.2-1.0); BLOOD UREA NITROGEN 22 MG/DL (7-18); CARBON DIOXIDE LEVEL 38 MEQ/L (21-32); CHLORIDE LEVEL 101 MEQ/L (98-107); CHOLESTEROL LEVEL 149 MG/DL (< 200); CPK CREATINE PHOSPHOKINASE 1670 U/L (39-308); GLOMERULAR FILTRATION RATE > 60.0 (>60); GLUCOSE, FASTING 148 MG/DL (70-100); LDH LACTATE DEHYDROGENASE 485 U/L (87-241); SODIUM LEVEL 143 MEQ/L (136-145); TOTAL PROTEIN 5.9 GM/DL (6.4-8.2); TRIGLYCERIDES LEVEL 199 MG/DL (<150)
[2021-07-30] MEDS: PANTOPRAZOLE 40MG VIAL (C9113 PER 1) IV SCH (08:17)
[2021-07-30] MEDS: BARICITINIB 2MG TABLET (OLUMIANT) FOR EUA PO SCH (08:18)
[2021-07-30] MEDS: dexameTHASONE 20MG/5ML VIAL (J1100 PER 1MG) IV SCH ×2 (08:18→20:42)
[2021-07-30] MEDS: CHLORHEXIDINE GLUCONATE 0.12 % 15ML UDC (PERIDEX ORAL RINSE) MT SCH ×2 (08:18→20:42)
--- NOTE | 2021-07-30 08:24 | REP ---
INDICATION: RESPIRATORY FAILURE COMPARISON: 07/29/2021 TECHNIQUE: Portable AP view of the chest FINDINGS: Lines and tubes in stable satisfactory position. Bilateral opacities primarily involving the lower lobes (right greater than left) essentially unchanged. No obvious pneumothorax. Cardiac silhouette is stable. IMPRESSION: No change from prior examination. <Electronically signed by Raz Diaz > 07/30/21 [id number]
[2021-07-30] MEDS: IPRATROPIUM 0.5MG/ALBUTEROL 2.5MG INH SOL UD 3ML (DUONEB) NEB SCH ×4 (08:52→18:06)
[2021-07-30] MEDS: fentaNYL CITRATE 1,000 MCG in NS 80 ML IV SCH ×3 (09:52→20:00)
--- NOTE | 2021-07-30 10:02 | CCN ---
CRITICAL CARE NOTE DATE: 07/30/2021 START TIME: 0850 STOP TIME: 924 SUBJECTIVE: I again attempted Augie Ho here in the Intensive Care Unit. Patient has been examined and chart reviewed. I spoke at length with the nurse as well as his family at the bedside. He remains intubated, sedated, medically paralyzed and mechanically ventilated. T-max overnight 99.1, blood pressure 100 to 110 systolic. He has not required vasopressors. Heart rate generally in the 80s to 90s, respiratory rate 18 via the ventilator. He remains on 100% FIO2 and oxygen saturation remains 81 to 84%. Ins and outs midnight to midnight: 2815 ml in with 2635 ml out. Most recent laboratories shows white blood cell count of 11.8, hemoglobin 9.3, platelet count 176,000, 87% segs, no bands. Sodium is 143, potassium is 4.0, chloride 101, CO2 38, BUN 22, creatinine 0.5, glucose 148. Albumin diminished at 1.8. CK 1670. AST 128, ALT 55, alkaline phosphatase 71. Heparin therapeutic with a PTT of 100.4. Arterial blood gas done this morning on assist control: Tidal volume of 430, PEEP of 15, FIO2 of 100%, pH of 7.198, pCO2 95.8, pO2 of 70.3. Medication list has been reviewed. He remains on Baricitinib and Decadron. He is on full dose Heparin. He is on Precedex, Propofol and Fentanyl drips. Nimbex is in drip form as well. He remains on Zosyn. As the patient had acid base disturbance, he received several days of Diamox and this will be addressed further below. OBJECTIVE: On exam, he is sedate and medically paralyzed. He appears comfortable. No diaphoresis today. Pupils are small and midline. Trachea is in the midline. Chest shows his bilateral chest tubes in place without any obvious air leak. Expansion although diminished is symmetric. No rubs or wheezes anteriorly. Difficult to hear his bases today. Cardiac exam is distant but regular. Peripheral pulses although diminished are palpable. Abdomen is obese with active bowel sounds. No obvious organomegaly or masses. Extremities show no obvious cyanosis or clubbing. He does have diffuse edema. Neurologically, he is sedate and paralyzed. Most pressing problems requiring my presence at the bedside: 1. Acute hypoxemic and hypercapnic respiratory failure secondary to COVID pneumonia. 2. ARDS, COVID pneumonia. 3. Hyperglycemia. 4. DNR status. 5. Full dose anticoagulation. We had changed from Lasix to Diamox due to his acid base disturbance. We are at the point now however that I am going to discontinue his Diamox as he is unable to compensate from a respiratory standpoint for the loss of his serum bicarbonate. Multiple ventilator manipulations have been made but he is intolerant of them and therefore I will go back to low dose Lasix and switch back and forth between that and Acetazolamide as needed. We have been able to minimize some of his fluids, as he becomes more edematous I believe the increase in interstitial edema secondary to that from a pulmonary standpoint just further complicates his status. I again updated his at the bedside regarding his very high likelihood of not surviving this hospitalization and she conveys an understanding. He has been tolerating his tube feeds and we will continue to increase those as he tolerates. We will leave his current other medications as is. For now, he is quite critically ill and very likely to not survive this hospitalization. Will proceed as outlined above. No further ventilator manipulations were able to be made in view of his tenuous status. I left the bedside at 0925 hours. Total of thirty-five minutes of critical care time at the bedside not including procedures.
[2021-07-30] MEDS ORDERED: FUROSEMIDE 20MG/2ML VIAL (J1940) IV ONE (14:25)
[2021-07-31] VITALS (21 sets, daily range): BP systolic 96–125; BP diastolic 50–59
[2021-07-31] MEDS: CISATRACURIUM 200 MG in NS 480 ML IV SCH ×7 (00:51→21:35)
[2021-07-31] MEDS: propofoL 1,000 MG in IV 1 EA IV SCH ×14 (00:52→22:53)
[2021-07-31] MEDS: HEPARIN DRIP 25,000 UNITS in IV 1 EA IV SCH ×3 (00:53→23:15)
[2021-07-31] MEDS: fentaNYL CITRATE 1,000 MCG in NS 80 ML IV SCH ×2 (05:20→15:18)
[2021-07-31 05:57] LABS: ABG BASE EXCESS 8.1 (-2.0-2.0); ABG HCO3 38.8 MEQ/L (22.0-26.0); ABG O2 SATURATION 85.7 % (95.0-99.0); ABG PARTIAL PRESSURE O2 56.4 mmHg (75.0-100.0); ABG STANDARD HCO3 31.7 MEQ/L (22.0-26.0)
[2021-07-31 06:00] LABS: ABG PARTIAL PRESSURE CO2 101.9 mmHg (35.0-45.0); ABG pH (ARTERIAL) 7.199 UNITS (7.350-7.450)
[2021-07-31] MEDS: SODIUM CHLORIDE 0.9% INJ 10 ML SYR IV SCH ×2 (06:19→17:58)
[2021-07-31] MEDS: PIPERACILLIN/TAZOBACTAM SOD 4.5 GM in D5W MINI-BAG PLUS 50 ML IV SCH ×6 (06:19→23:40)
[2021-07-31] MEDS: HumaLOG INSULIN (NovoLOG) PER UNIT SC SCH ×5 (06:22→23:54)
[2021-07-31 06:54] LABS: HEMOGLOBIN 9.2 g/dl (13.5-17.5); MEAN CORPUSCULAR HEMOGLOBIN 30.9 pg (27.0-33.0); MEAN CORPUSCULAR HGB CONC 29.7 g/dl (32.0-36.5); PLATELET COUNT, AUTOMATED 174 10^3/uL (150-450); RED BLOOD COUNT 2.98 10^6/uL (4.30-6.10); WHITE BLOOD COUNT 15.7 10^3/uL (4.0-10.0)
[2021-07-31 07:22] LABS: ALT/SGPT 59 U/L (12-78); BILIRUBIN,TOTAL 0.4 MG/DL (0.2-1.0); BLOOD UREA NITROGEN 33 MG/DL (7-18); CALCIUM LEVEL 8.2 MG/DL (8.5-10.1); CARBON DIOXIDE LEVEL 39 MEQ/L (21-32); CHLORIDE LEVEL 102 MEQ/L (98-107); CREATININE FOR GFR 0.61 MG/DL (0.70-1.30); GLOMERULAR FILTRATION RATE > 60.0 (>60); GLUCOSE, FASTING 157 MG/DL (70-100); POTASSIUM SERUM 4.1 MEQ/L (3.5-5.1); SODIUM LEVEL 142 MEQ/L (136-145); TOTAL PROTEIN 6.1 GM/DL (6.4-8.2)
[2021-07-31 07:45] LABS: ALBUMIN 1.9 GM/DL (3.2-5.2); ALT/SGPT 57 U/L (12-78); BILIRUBIN,TOTAL 0.5 MG/DL (0.2-1.0); BLOOD UREA NITROGEN 33 MG/DL (7-18); CARBON DIOXIDE LEVEL 39 MEQ/L (21-32); CHLORIDE LEVEL 103 MEQ/L (98-107); CHOLESTEROL LEVEL 172 MG/DL (< 200); CPK CREATINE PHOSPHOKINASE 1338 U/L (39-308); CREATININE FOR GFR 0.63 MG/DL (0.70-1.30); GLOMERULAR FILTRATION RATE > 60.0 (>60); GLUCOSE, FASTING 151 MG/DL (70-100); LDH LACTATE DEHYDROGENASE 420 U/L (87-241); PHOSPHORUS LEVEL 2.2 MG/DL (2.5-4.9); POTASSIUM SERUM 4.1 MEQ/L (3.5-5.1); SODIUM LEVEL 142 MEQ/L (136-145); TOTAL PROTEIN 6.1 GM/DL (6.4-8.2); TRIGLYCERIDES LEVEL 195 MG/DL (<150)
[2021-07-31] MEDS: IPRATROPIUM 0.5MG/ALBUTEROL 2.5MG INH SOL UD 3ML (DUONEB) NEB SCH ×4 (07:45→19:46)
[2021-07-31 08:25] LABS: ATYPICAL LYMPH 1 % (0-5); HYPOCHROMASIA 2+; LYMPHOCYTES 4 % (16-44); MONOCYTES 2 % (0-5); NEUTROPHILS 87 % (28-66); PLATELET CLUMPS SMALL AMT; PLATELET ESTIMATE NORMAL (NORMAL)
[2021-07-31 08:26] LABS: ANISOCYTOSIS 2+; STOMATOCYTES 2+
--- NOTE | 2021-07-31 08:26 | REP ---
INDICATION: RESPIRATORY FAILURE COMPARISON: 07/30/2021 TECHNIQUE: Portable AP view of the chest FINDINGS: Endotracheal tube in satisfactory position. Right IJ line in stable position. Right-sided PICC line in stable position. Bilateral chest tubes stable. Bilateral pleuroparenchymal opacities are essentially unchanged. No pneumothorax. Skeletal structures intact and stable. IMPRESSION: Bilateral opacities essentially unchanged. No obvious pneumothorax. <Electronically signed by Raz Diaz > 07/31/21 [id number]
[2021-07-31] MEDS: CHLORHEXIDINE GLUCONATE 0.12 % 15ML UDC (PERIDEX ORAL RINSE) MT SCH ×2 (08:43→19:54)
[2021-07-31] MEDS: BARICITINIB 2MG TABLET (OLUMIANT) FOR EUA PO SCH (08:44)
[2021-07-31] MEDS: PANTOPRAZOLE 40MG VIAL (C9113 PER 1) IV SCH (08:44)
[2021-07-31] MEDS: dexameTHASONE 20MG/5ML VIAL (J1100 PER 1MG) IV SCH ×2 (08:44→19:54)
[2021-07-31] MEDS ORDERED: VANCOMYCIN HCL 1,000 MG, VIAL MATE ADAPTER 1 EACH in NS 250 ML IV SCH (09:20)
--- NOTE | 2021-07-31 10:35 | CCN ---
CRITICAL CARE NOTE DATE: 07/31/2021 START TIME: 854 STOP TIME: 935 SUBJECTIVE: I again attended Augie Ho here in the Intensive Care Unit. The patient has been examined, chart reviewed. I spoke at length with his nurse as well as the at the bedside. He remains intubated, sedated, mechanically ventilated. He is medically paralyzed. OBJECTIVE: T max overnight 98.8, blood pressure 96 to 115. He has not required vasopressors. Heart rate 80 to the low 100s with a sinus mechanism. Respiratory rate 24 via the ventilator. Input and output midnight to midnight 2,443 mL in with 3,260 mL out. Chest x-ray shows no significant change. Lines and tubes in good position. Poor inspiratory effort. A little bit more in the way of an elevated right hemidiaphragm. Chest tubes are in place. Less than 100 mL drained from both. No air leaks. Other laboratories show a white blood cell count of 15.7, hemoglobin 9.2, platelet count 164,000, 87% segs, 6% bands today. Sodium 142, K 4.1, chloride 103, CO2 39, BUN 33, creatinine 0.63, glucose 151. AST and ALT 108 and 57 respectively. LDH 1,338. Albumin remains depressed at 1.9. He is therapeutic on his Heparin drip. Blood gas done on his current vent settings, assist control 18, tidal volume 430, PEEP of 15, FiO2 of 100% shows a pH of 7.199, pCO2 of 101.9 and pO2 of 56.4. He is intolerant of any other ventilator changes with precipitous declines in his oxygen saturation level. Medication list has been reviewed. He remains on: 1. DuoNebs. 2. He received 17 doses of baricitinib and this will be therefore discontinued as we are past maximum. 3. He remains on a Heparin drip. 4. Propofol. 5. Fentanyl. 6. Nimbex. 7. He remains on twice a day dexamethasone. 8. He is on Zosyn and will begin Vancomycin empirically today. 9. He is receiving diuretics on a p.r.n. basis. On exam he is ill-appearing. Lines and tubes noted as well as his chest tubes. No diaphoresis today. Trach is in the midline. Chest shows diminished but symmetric expansion. There are some rhonchi right greater than the left that clear with suctioning. No other focal adventitious breath sounds are identified. Lung justin other than the rhonchi are fairly clear. He does have some dependent crackles, especially in the early inspiratory phase. No convincing rub. Cardiac exam: Distant and generally regular. Peripheral pulses are diminished but palpable. Diffuse edema again noted. Abdomen: Obese, soft, active bowel sounds. Extremities show no cyanosis or clubbing. Neurologically he is sedated and paralyzed. THE MOST PRESSING PROBLEMS REQUIRING MY IMMEDIATE PRESENCE AT THE BEDSIDE: 1. ARDS/COVID pneumonia. 2. Profound hypoxemic and hypercapnic respiratory failure on the basis of the above. 3. COVID-19. 4. Unvaccinated state. 5. Full dose anticoagulation. 6. DNR status. 7. Hyperglycemia. ASSESSMENT/PLAN: I again reviewed his status with his at the bedside. She understands the precipitous nature of his situation and the very high likelihood he will not survive. Again, she wishes full support up until a cardiac arrest and then she would allow him to pass. I will begin empiric Vancomycin today. He has a little bit more in the way of a band count. He has lines and chest tubes that we are unable to change and therefore we will empirically treat him for MRSA. We will continue the Zosyn. He is past the suggested course of baricitinib and therefore that will be discontinued today. I will continue his Decadron however. He remains on full dose anticoagulation. He has been intolerant of any significant ventilator manipulations. We are allowing significant permissive hypercapnia and currently his oxygen saturation varies from 84 to 86% and unfortunately that is the best we have been able to do. He is not a candidate for ECMO as we are unable to transfer him and there are no beds available anywhere. At this point we will continue our current approach. His survival is not expected. I left the bedside at 0936 hours. Forty one minutes of critical care time were at the bedside not including procedures.
[2021-07-31] MEDS ORDERED: VANCOMYCIN HCL 1,000 MG, VIAL MATE ADAPTER 1 EACH in NS 250 ML IV ONE ×2 (11:00→13:00)
[2021-07-31] MEDS: ACETAMINOPHEN TAB 650MG DOSE (2X325MG) PO PRN (15:08)
[2021-07-31] MEDS ORDERED: LACRILUBE (AKWA TEARS) OPHTH OINT 3.5 GM OU PRN (16:00)
[2021-07-31] MEDS: VANCOMYCIN HCL 1,000 MG, VIAL MATE ADAPTER 1 EACH in NS 250 ML IV SCH (19:54)
[2021-08-01] VITALS (23 sets, daily range): BP systolic 88–132; BP diastolic 48–69
[2021-08-01] MEDS: propofoL 1,000 MG in IV 1 EA IV SCH ×14 (00:32→23:59)
[2021-08-01] MEDS: fentaNYL CITRATE 1,000 MCG in NS 80 ML IV SCH ×3 (01:20→20:55)
[2021-08-01] MEDS: CISATRACURIUM 200 MG in NS 480 ML IV SCH ×4 (01:51→18:25)
[2021-08-01] MEDS: VANCOMYCIN HCL 1,000 MG, VIAL MATE ADAPTER 1 EACH in NS 250 ML IV SCH ×3 (02:53→18:50)
[2021-08-01] MEDS ORDERED: FUROSEMIDE 40MG/4ML VIAL (J1940) IV ONE (03:25)
[2021-08-01] MEDS: SODIUM CHLORIDE 0.9% INJ 10 ML SYR IV SCH ×2 (05:20→17:37)
[2021-08-01] MEDS: PIPERACILLIN/TAZOBACTAM SOD 4.5 GM in D5W MINI-BAG PLUS 50 ML IV SCH ×3 (05:21→17:37)
[2021-08-01] MEDS: HumaLOG INSULIN (NovoLOG) PER UNIT SC SCH ×3 (05:35→18:07)
[2021-08-01 05:50] LABS: HEMATOCRIT 28.1 % (42.0-52.0); HEMOGLOBIN 8.2 g/dl (13.5-17.5); MEAN CORPUSCULAR HEMOGLOBIN 31.1 pg (27.0-33.0); MEAN CORPUSCULAR HGB CONC 29.2 g/dl (32.0-36.5); MEAN CORPUSCULAR VOLUME 106.4 fl (80.0-96.0); PLATELET COUNT, AUTOMATED 158 10^3/uL (150-450); RED BLOOD COUNT 2.64 10^6/uL (4.30-6.10); WHITE BLOOD COUNT 18.2 10^3/uL (4.0-10.0)
[2021-08-01 06:22] LABS: ABG BASE EXCESS 8.6 (-2.0-2.0); ABG HCO3 38.6 MEQ/L (22.0-26.0); ABG O2 SATURATION 67.5 % (95.0-99.0); ABG STANDARD HCO3 31.8 MEQ/L (22.0-26.0); ABG TOTAL CO2 41.4 MEQ/L (22.0-29.0)
[2021-08-01 06:25] LABS: ABG PARTIAL PRESSURE CO2 92.3 mmHg (35.0-45.0); ABG pH (ARTERIAL) 7.239 UNITS (7.350-7.450)
[2021-08-01 06:26] LABS: ABG PARTIAL PRESSURE O2 37.7 mmHg (75.0-100.0)
[2021-08-01 06:50] LABS: ALBUMIN 1.8 GM/DL (3.2-5.2); ALT/SGPT 54 U/L (12-78); BILIRUBIN,TOTAL 0.5 MG/DL (0.2-1.0); BLOOD UREA NITROGEN 33 MG/DL (7-18); CALCIUM LEVEL 6.8 MG/DL (8.5-10.1); CARBON DIOXIDE LEVEL 33 MEQ/L (21-32); CHLORIDE LEVEL 109 MEQ/L (98-107); CHOLESTEROL LEVEL 167 MG/DL (< 200); CPK CREATINE PHOSPHOKINASE 836 U/L (39-308); CREATININE FOR GFR 0.52 MG/DL (0.70-1.30); GLOMERULAR FILTRATION RATE > 60.0 (>60); GLUCOSE, FASTING 152 MG/DL (70-100); LDH LACTATE DEHYDROGENASE 511 U/L (87-241); POTASSIUM SERUM 3.3 MEQ/L (3.5-5.1); SODIUM LEVEL 147 MEQ/L (136-145); TOTAL PROTEIN 5.6 GM/DL (6.4-8.2); TRIGLYCERIDES LEVEL 238 MG/DL (<150)
[2021-08-01 06:53] LABS: ALBUMIN 1.8 GM/DL (3.2-5.2); ALT/SGPT 54 U/L (12-78); BILIRUBIN,TOTAL 0.5 MG/DL (0.2-1.0); BLOOD UREA NITROGEN 34 MG/DL (7-18); CALCIUM LEVEL 6.8 MG/DL (8.5-10.1); CARBON DIOXIDE LEVEL 34 MEQ/L (21-32); CHLORIDE LEVEL 108 MEQ/L (98-107); GLOMERULAR FILTRATION RATE > 60.0 (>60); GLUCOSE, FASTING 146 MG/DL (70-100); POTASSIUM SERUM 3.3 MEQ/L (3.5-5.1); SODIUM LEVEL 147 MEQ/L (136-145); TOTAL PROTEIN 5.6 GM/DL (6.4-8.2)
[2021-08-01 06:59] LABS: ANISOCYTOSIS 1+; LYMPHOCYTES 9 % (16-44); METAMYELOCYTES 3 % (0-0); MONOCYTES 2 % (0-5); MYELOCYTES 1 % (0-0); NEUTROPHILS 84 % (28-66); PLATELET ESTIMATE NORMAL (NORMAL)
[2021-08-01 07:05] LABS: STOMATOCYTES 1+
[2021-08-01] MEDS: IPRATROPIUM 0.5MG/ALBUTEROL 2.5MG INH SOL UD 3ML (DUONEB) NEB SCH ×4 (07:34→20:10)
[2021-08-01] MEDS: dexameTHASONE 20MG/5ML VIAL (J1100 PER 1MG) IV SCH ×2 (07:55→20:08)
[2021-08-01] MEDS: PANTOPRAZOLE 40MG VIAL (C9113 PER 1) IV SCH (07:55)
[2021-08-01] MEDS: CHLORHEXIDINE GLUCONATE 0.12 % 15ML UDC (PERIDEX ORAL RINSE) MT SCH ×2 (07:55→20:08)
[2021-08-01] MEDS ORDERED: POTASSIUM CHLORIDE 10% LIQ 20 MEQ/15 ML UDC PO ONE (08:45)
[2021-08-01] MEDS ORDERED: FUROSEMIDE 40MG/4ML VIAL (J1940) IV SCH (09:00)
[2021-08-01] MEDS: SENNA SYRUP 15 ML UDC PEG SCH (09:00)
[2021-08-01] MEDS: MIRALAX *UNIT DOSE* 17GM PACKET PO SCH (09:23)
--- NOTE | 2021-08-01 10:09 | IPNPDOC ---
Text Note Date of Service The patient was seen on 08/01/21. NOTE CRITICAL CARE PROGRESS NOTE: SUBJECTIVE: Patient having episodes of desaturation overnight requiring hand bagging. Patient remains on mechanical ventilation. Family is accompanying him at bedside. He is on propofol 70, fentanyl 100, Nimbex and his [id number] is 0- 4. He is on heparin drip. He is afebrile. Feeds are on hold for a gastric residual volume of 150. He has not had bowel movement recorded for 6 days. Last 24 hours ins are 4782 and outs are 2940 and he has good urine output. He continues to have intermittent air leak in both chest tubes All other ROS are negative except as mentioned above PHYSICAL EXAMINATION: VITAL SIGNS: Please see below. GENERAL APPEARANCE: In extremis on mechanical ventilation HEENT: ET tube in place. No thyromegaly, trachea midline, PERRLA. normal mucous membranes RESPIRATORY: Good air entry bilaterally. Bilateral chest tubes in place with intermittent air leak CARDIOVASCULAR: +s1 s2, no murmurs. ABDOMEN: nontender, not distended, +BS EXTREMITIES: Leg edema bilateral. palpable distal pulses SKIN: no rash, no purpura NEUROLOGICAL: Sedated and paralyzed PERTINENT LABS/IMAGING: Chest x-ray this morning bilateral opacities not significantly changed. No pneumothorax. Bilateral chest tubes in place. ET tube, right IJ TLC, OG tube are in satisfactory position. IMPRESSION: The most urgent problems requiring my immediate attention at bedside are: 1. ARDS/COVID pneumonia. 2. Profound hypoxemic and hypercapnic respiratory failure on the basis of the above. 3. COVID-19. 4. Unvaccinated state. 5. Full dose anticoagulation. 6. DNR status. 7. Hyperglycemia. 8. Septic shock resolved 9. Bilateral pneumothorax status post chest tube 10. Morbid obesity PLAN: EXPLOSIVE OPERATOR: Paralytic vacation, patient is not able to undergo sedation vacation at this time due to desaturation on the vent. PULM: Unable to prone given his body habitus. HOB 30 degrees. Maintain Sp02 88 to 96%. Titrate down oxygen as tolerated. ABG pH 7.23 CO2 92 O2 37 on 430/18/15/ 100%. Vent changes as follows: Increased respiratory rate to 26. ABG in 2 hours. Allow permissive hypercapnia. Continue with low tidal volume ventilation per ARDS network protocol. Decadron 6 mg every 12 hours day 4. Keep chest tubes to suction as there is intermittent air leak. CARDIO: Maintain MAPs 60-65. Currently not on vasopressors. We will try to maintain equal fluid balance and will start Lasix 40 mg IV daily. GI: Restart OG feeds and advance to goal. We will start senna and MiraLAX as there has been no bowel movement recorded in 6 days. RENAL: Replete potassium and magnesium level. Start free water through OG tube 300 every 6 hours for mild hypernatremia. ID: He is status post a course of baricitinib and remdesivir. Continue with vancomycin day 2 and continue with Zosyn day 6. Pharmacy consult for vancomycin dosing. Follow-up blood cultures, sputum culture, MRSA nare, procalcitonin. ENDO: Monitor FS per routine. Goal range 140-180. [] HEME: Heparin drip for suspected pulmonary microthrombi. Patient is tolerating and without any significant bleeding. LINES/CATHETERS: Right IJ TLC is clean. Right PICC line is clean. Tejada in place.. DVT/GI PPX CODE STATUS: Patient is DNR. DISPOSITION: Keep in ICU. Grave prognosis, family at bedside made aware that he is not likely to survive this hospitalization. A total of 48 minutes of critical care time spent at bedside, not including procedures. VS,Fishbone, I+O VS, Fishbone, I+O Laboratory Tests 08/01/21 05:29 Vital Signs Date Time Temp Pulse Resp B/P (MAP) Pulse Ox O2 Delivery O2 Flow Rate FiO2 08/01/21 09:02 105 26 65 100 08/01/21 06:00 122/60 (80) Ventilator 08/01/21 04:00 97.7 07/30/21 17:17 16.0 I&O- Last 24 Hours up to 6 AM 08/01/21 06:00 Intake Total 5564 ml Output Total 3505 ml Balance 2059 ml HUYEN FLETCHER MD Aug 01, 2021 10:09
--- NOTE | 2021-08-01 10:18 | REP ---
INDICATION: intubated COMPARISON: 07/31/2021 TECHNIQUE: Portable AP view of the chest FINDINGS: Endotracheal tube in satisfactory stable position. Nasogastric tube courses below left hemidiaphragm. Right IJ line with tip in the SVC. Right PICC line with tip in the SVC. Bilateral chest tubes in stable position. The mediastinum and cardiac silhouette are stable. Lung justin demonstrate continued perihilar and lower lobe opacities essentially unchanged. No residual pneumothorax identified. IMPRESSION: Stable lower lobe opacities. No evidence for pneumothorax. <Electronically signed by Raz Diaz > 08/01/21 [id number]
[2021-08-01] MEDS: HEPARIN DRIP 25,000 UNITS in IV 1 EA IV SCH ×2 (11:32→22:59)
[2021-08-01 12:54] LABS: ABG BASE EXCESS 7.9 (-2.0-2.0); ABG HCO3 36.3 MEQ/L (22.0-26.0); ABG O2 SATURATION 83.8 % (95.0-99.0); ABG PARTIAL PRESSURE O2 51.2 mmHg (75.0-100.0); ABG STANDARD HCO3 31.4 MEQ/L (22.0-26.0); ABG TOTAL CO2 38.7 MEQ/L (22.0-29.0); ABG pH (ARTERIAL) 7.293 UNITS (7.350-7.450)
[2021-08-01 12:56] LABS: ABG PARTIAL PRESSURE CO2 76.8 mmHg (35.0-45.0)
[2021-08-01] MEDS: FUROSEMIDE 40MG/4ML VIAL (J1940) IV SCH (17:00)
[2021-08-02] VITALS (22 sets, daily range): BP systolic 112–145; BP diastolic 56–80
[2021-08-02] MEDS: HumaLOG INSULIN (NovoLOG) PER UNIT SC SCH ×4 (00:40→18:06)
[2021-08-02] MEDS: PIPERACILLIN/TAZOBACTAM SOD 4.5 GM in D5W MINI-BAG PLUS 50 ML IV SCH ×4 (00:42→17:15)
[2021-08-02] MEDS: CISATRACURIUM 200 MG in NS 480 ML IV SCH ×4 (01:49→22:43)
[2021-08-02] MEDS: propofoL 1,000 MG in IV 1 EA IV SCH ×16 (02:45→23:18)
[2021-08-02] MEDS: SODIUM CHLORIDE 0.9% INJ 10 ML SYR IV SCH ×2 (06:00→17:16)
[2021-08-02 06:20] LABS: ABG BASE EXCESS 9.6 (-2.0-2.0); ABG O2 SATURATION 82.2 % (95.0-99.0); ABG TOTAL CO2 40.3 MEQ/L (22.0-29.0); ABG pH (ARTERIAL) 7.317 UNITS (7.350-7.450)
[2021-08-02 06:21] LABS: ABG PARTIAL PRESSURE O2 49.4 mmHg (75.0-100.0)
[2021-08-02 07:00] LABS: HEMATOCRIT 32.2 % (42.0-52.0); HEMOGLOBIN 9.5 g/dl (13.5-17.5); MEAN CORPUSCULAR HEMOGLOBIN 30.9 pg (27.0-33.0); MEAN CORPUSCULAR HGB CONC 29.5 g/dl (32.0-36.5); MEAN CORPUSCULAR VOLUME 104.9 fl (80.0-96.0); PLATELET COUNT, AUTOMATED 178 10^3/uL (150-450); RED BLOOD COUNT 3.07 10^6/uL (4.30-6.10); WHITE BLOOD COUNT 22.6 10^3/uL (4.0-10.0)
[2021-08-02] MEDS: fentaNYL CITRATE 1,000 MCG in NS 80 ML IV SCH ×2 (07:05→15:32)
[2021-08-02] MEDS: IPRATROPIUM 0.5MG/ALBUTEROL 2.5MG INH SOL UD 3ML (DUONEB) NEB SCH (07:09)
[2021-08-02 07:53] LABS: LYMPHOCYTES 5 % (16-44); METAMYELOCYTES 2 % (0-0); MONOCYTES 2 % (0-5); MYELOCYTES 5 % (0-0); NEUTROPHILS 74 % (28-66)
[2021-08-02 07:55] LABS: ANISOCYTOSIS 1+; PLATELET ESTIMATE NORMAL (NORMAL)
[2021-08-02 07:56] LABS: POLYCHROMASIA 1+
[2021-08-02 07:57] LABS: SMUDGE CELLS 1+
[2021-08-02] MEDS: SENNA SYRUP 15 ML UDC PEG SCH (08:33)
[2021-08-02] MEDS: MIRALAX *UNIT DOSE* 17GM PACKET PO SCH (08:33)
[2021-08-02] MEDS: dexameTHASONE 20MG/5ML VIAL (J1100 PER 1MG) IV SCH ×2 (08:33→20:47)
[2021-08-02] MEDS: CHLORHEXIDINE GLUCONATE 0.12 % 15ML UDC (PERIDEX ORAL RINSE) MT SCH ×2 (08:33→20:46)
[2021-08-02] MEDS: PANTOPRAZOLE 40MG VIAL (C9113 PER 1) IV SCH (08:34)
[2021-08-02] MEDS: FUROSEMIDE 40MG/4ML VIAL (J1940) IV SCH (08:34)
--- NOTE | 2021-08-02 08:35 | REP ---
INDICATION: intubation, COMPARISON: 08/01/2021 TECHNIQUE: Portable AP view of the chest FINDINGS: Lines and tubes in stable satisfactory position. Bilateral pleuroparenchymal changes again noted and stable. No obvious pneumothorax identified. IMPRESSION: No significant change from prior examination. No evidence for pneumothorax. <Electronically signed by Raz Diaz > 08/02/21 0872
[2021-08-02] MEDS ORDERED: IPRATROPIUM 0.5MG/ALBUTEROL 2.5MG INH SOL UD 3ML (DUONEB) NEB PRN (09:10)
[2021-08-02 09:36] LABS: ALBUMIN 2.1 GM/DL (3.2-5.2); ALT/SGPT 62 U/L (12-78); BILIRUBIN,TOTAL 0.7 MG/DL (0.2-1.0); BLOOD UREA NITROGEN 46 MG/DL (7-18); CALCIUM LEVEL 8.2 MG/DL (8.5-10.1); CARBON DIOXIDE LEVEL 38 MEQ/L (21-32); CHLORIDE LEVEL 104 MEQ/L (98-107); CHOLESTEROL LEVEL 202 MG/DL (< 200); CPK CREATINE PHOSPHOKINASE 628 U/L (39-308); CREATININE FOR GFR 0.75 MG/DL (0.70-1.30); GLOMERULAR FILTRATION RATE > 60.0 (>60); GLUCOSE, FASTING 165 MG/DL (70-100); LDH LACTATE DEHYDROGENASE 520 U/L (87-241); MAGNESIUM LEVEL 2.7 MG/DL (1.8-2.4); PHOSPHORUS LEVEL 2.5 MG/DL (2.5-4.9); POTASSIUM SERUM 4.4 MEQ/L (3.5-5.1); SODIUM LEVEL 146 MEQ/L (136-145); TOTAL PROTEIN 6.7 GM/DL (6.4-8.2); TRIGLYCERIDES LEVEL 298 MG/DL (<150)
[2021-08-02] MEDS ORDERED: FUROSEMIDE 20MG/2ML VIAL (J1940) IV ONE (10:00)
--- NOTE | 2021-08-02 11:15 | IPNPDOC ---
Text Note Date of Service The patient was seen on 08/02/21. NOTE CRITICAL CARE PROGRESS NOTE: SUBJECTIVE: Patient seen and examined at bedside. Patient remains on mechanical ventilation. There were desaturations overnight into the 60s and 70s. When he is off the paralytic he becomes dyssynchronous with the vent and desaturates even more. He is afebrile. He is currently on Nimbex, fentanyl, propofol. He is on heparin drip. His maps have been in the 80s. His tube feeds are at goal and he is tolerating. He has not had any bowel movements. His ins are 6887 and his outs are 4200. All other ROS are negative except as mentioned above PHYSICAL EXAMINATION: VITAL SIGNS: Please see below. GENERAL APPEARANCE: In extremis on mechanical ventilation. HEENT: ET tube in place. No thyromegaly, trachea midline, PERRLA. normal mucous membranes RESPIRATORY: CTA B/L, good air entry. Bilateral chest tubes in place. There is intermittent leaks. CARDIOVASCULAR: +s1 s2, no murmurs. ABDOMEN: nontender, not distended, +BS EXTREMITIES: no edema or erythema. palpable distal pulses SKIN: Buttock deep tissue injury. NEUROLOGICAL: Paralyzed and sedated PERTINENT LABS/IMAGING: Chest x-ray from today shows unchanged bilateral opacities. OG tube, ET tube in TLC are satisfactory position. There is no pneumothorax. Chest tubes in position. IMPRESSION: The most urgent problems requiring my immediate attention at bedside are: 1. ARDS/COVID pneumonia. 2. Profound hypoxemic and hypercapnic respiratory failure on the basis of the above. 3. COVID-19. 4. Unvaccinated state. 5. Full dose anticoagulation. 6. DNR status. 7. Hyperglycemia. 8. Septic shock resolved 9. Bilateral pneumothorax status post chest tube 10. Morbid obesity 11. 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 PULM: HOB 30 degrees. Maintain Sp02 88 to 96%. Titrate down oxygen as tolerated. Unable to prone given his morbid obesity and body habitus and the presence of bilateral chest tubes. Keep chest tubes to suction as there is intermittent air leak. ABG pH 7.31 CO2 76 O2 49 on //15/100. Will reduce tidal volume to 360 cc and increase PEEP to 20. ABG in 2 hours. Continue with low tidal volume ventilation with goal plateau less than 40 and driving pressure less than 15. Can accept higher plateaus in patients that are morbidly obese. CARDIO: Maintain MAPs 60-65. Currently not on vasopressors. We will try to maintain equal fluid balance. Increase Lasix to 60 mg every 12 hours GI: OG feeds. Laxatives. Start lactulose until bowel movement. Triglyceride 238 and will continue to monitor on while on propofol RENAL: free water through OG tube 300 every 6 hours ID: Continue with Zosyn day 7 and await speciation of the gram-negative rods in the blood. Obtaining tracheal aspirate will lead to derecruitment and thus will not obtain at this time. He is status post a course of baricitinib and remdesivir. Decadron is 6 mg every 12h day 13. ENDO: Monitor FS per routine. Goal range 140-180. HEME: Heparin drip for suspected pulmonary microthrombi. Patient is tolerating and without any significant bleeding. Check lower extremity duplex LINES/CATHETERS: Right IJ TLC is clean. Right PICC line is clean. Tejada in place. Bilateral chest tubes. DVT/GI PPX CODE STATUS: Patient is DNR. DISPOSITION: Keep in ICU. Grave prognosis, family at bedside made aware that he is not likely to survive this hospitalization. A total of 55 minutes of critical care time spent at bedside, not including procedures. VS,Fishbone, I+O VS, Fishbone, I+O Laboratory Tests 08/02/21 05:42 Vital Signs Date Time Temp Pulse Resp B/P (MAP) Pulse Ox O2 Delivery O2 Flow Rate FiO2 08/02/21 10:00 117 26 136/62 (86) 68 Ventilator 100 08/02/21 08:00 98.3 07/30/21 17:17 16.0 I&O- Last 24 Hours up to 6 AM 08/02/21 06:00 Intake Total 7676.8 ml Output Total 4115 ml Balance 3561.8 ml HUYEN FLETCHER MD Aug 02, 2021 11:15
--- NOTE | 2021-08-02 11:28 | REP ---
INDICATION: rule out DVT COMPARISON: None. TECHNIQUE: Kilpatrick scale and color Doppler evaluation using linear high frequency transducer. FINDINGS: Ultrasound examination of the right and left lower extremity deep venous structures from the common femoral vein through the popliteal vein demonstrates normal compressibility, flow and wave patterns in response to respiration and augmentation. There is no evidence for deep venous thrombosis. Evaluation of the calf veins is limited due to edema. 3.6 x 0.9 x 1.3 cm Fuentes's cyst in the right popliteal fossa. IMPRESSION: No evidence for deep venous thrombosis. Right-sided Fuentes's cyst. <Electronically signed by Raz Diaz > 08/02/21 1122
[2021-08-02] MEDS: HEPARIN DRIP 25,000 UNITS in IV 1 EA IV SCH ×2 (11:40→22:43)
[2021-08-02 12:00] LABS: ABG BASE EXCESS 8.8 (-2.0-2.0); ABG FIO2 100; ABG HCO3 38.7 MEQ/L (22.0-26.0); ABG MODE OF VENT AC; ABG O2 SATURATION 68.8 % (95.0-99.0); ABG PATIENT RESP RATE 26 /MIN; ABG PEEP 20; ABG STANDARD HCO3 31.9 MEQ/L (22.0-26.0); ABG TIDAL VOLUME 360 cc; ABG TOTAL CO2 41.5 MEQ/L (22.0-29.0); ABG pH (ARTERIAL) 7.257 UNITS (7.350-7.450)
[2021-08-02 12:01] LABS: ABG PARTIAL PRESSURE CO2 88.9 mmHg (35.0-45.0)
[2021-08-02] MEDS: LACTULOSE 20 GM/30 ML SYRUP UD PO SCH ×2 (12:11→20:46)
[2021-08-02] MEDS: FUROSEMIDE 100MG/10ML VIAL (J1940) IV SCH (20:47)
[2021-08-03] VITALS (29 sets, daily range): BP systolic 102–142; BP diastolic 46–76
[2021-08-03] MEDS: PIPERACILLIN/TAZOBACTAM SOD 4.5 GM in D5W MINI-BAG PLUS 50 ML IV SCH ×2 (00:02→06:30)
[2021-08-03] MEDS: HumaLOG INSULIN (NovoLOG) PER UNIT SC SCH ×2 (00:24→08:16)
[2021-08-03] MEDS: propofoL 1,000 MG in IV 1 EA IV SCH ×16 (00:49→22:54)
[2021-08-03] MEDS: fentaNYL CITRATE 1,000 MCG in NS 80 ML IV SCH ×3 (01:37→19:00)
[2021-08-03] MEDS: CISATRACURIUM 200 MG in NS 480 ML IV SCH ×4 (03:27→21:51)
[2021-08-03] MEDS: SODIUM CHLORIDE 0.9% INJ 10 ML SYR IV SCH ×2 (05:53→17:06)
--- NOTE | 2021-08-03 06:22 | REPVR ---
PROCEDURE INFORMATION: Exam: XR Chest Exam date and time: 08/03/21 (6:00am) Age: 31 years old Clinical indication: Covid infection. Intubation. TECHNIQUE: Imaging protocol: Portable CXR Views: 1 view COMPARISON: Portable CXR of 08/02/21 (7:49am) FINDINGS: Comparison is made with a portable CXR done the previous morning. Low lung volumes again noted. Stable cardiomegaly. E-T tube is seen, terminating approx. 4.1 cm above the danita. The tip of the E-T tube is at the clavicular level. A right-sided jugular venous catheter remains (stable position). An enteric tube passes to the stomach. Catheters and/or chest tubes project over each lung field, once again. Bilateral hazy airspace opacities remain, without significant improvement. Probable bilateral pleural effusions (unchanged appearance). No pneumothorax. IMPRESSION: No significant interval change is appreciated over the past 22 hours. Low lung volumes. Hazy bilateral airspace opacities remain. Bilateral pleural effusions are again seen. E-T tube is seen, terminating approx. 4.1 cm above the danita. The tip of the E-T tube is at the clavicular level. Electronically signed by: Irena Aleman On 08/03/2021 06:22:26 AM
[2021-08-03 06:26] LABS: HEMATOCRIT 35.7 % (42.0-52.0); HEMOGLOBIN 10.5 g/dl (13.5-17.5); MEAN CORPUSCULAR HGB CONC 29.4 g/dl (32.0-36.5); MEAN CORPUSCULAR VOLUME 108.8 fl (80.0-96.0); PLATELET COUNT, AUTOMATED 204 10^3/uL (150-450); RED BLOOD COUNT 3.28 10^6/uL (4.30-6.10)
[2021-08-03 06:29] LABS: WHITE BLOOD COUNT 34.3 10^3/uL (4.0-10.0)
[2021-08-03 06:58] LABS: ALBUMIN 2.2 GM/DL (3.2-5.2); ALT/SGPT 70 U/L (12-78); BILIRUBIN,TOTAL 0.8 MG/DL (0.2-1.0); BLOOD UREA NITROGEN 51 MG/DL (7-18); CALCIUM LEVEL 7.9 MG/DL (8.5-10.1); CARBON DIOXIDE LEVEL 41 MEQ/L (21-32); CHLORIDE LEVEL 102 MEQ/L (98-107); CREATININE FOR GFR 0.76 MG/DL (0.70-1.30); GLOMERULAR FILTRATION RATE > 60.0 (>60); GLUCOSE, FASTING 229 MG/DL (70-100); MAGNESIUM LEVEL 2.9 MG/DL (1.8-2.4); POTASSIUM SERUM 4.4 MEQ/L (3.5-5.1); SODIUM LEVEL 145 MEQ/L (136-145); TOTAL PROTEIN 6.7 GM/DL (6.4-8.2)
[2021-08-03] MEDS: PANTOPRAZOLE 40MG VIAL (C9113 PER 1) IV SCH (08:15)
[2021-08-03] MEDS: FUROSEMIDE 100MG/10ML VIAL (J1940) IV SCH (08:17)
[2021-08-03] MEDS: CHLORHEXIDINE GLUCONATE 0.12 % 15ML UDC (PERIDEX ORAL RINSE) MT SCH ×2 (08:17→20:07)
[2021-08-03] MEDS: dexameTHASONE 20MG/5ML VIAL (J1100 PER 1MG) IV SCH ×2 (08:17→20:07)
[2021-08-03 08:32] LABS: ABG BASE EXCESS 13.8 (-2.0-2.0); ABG HCO3 47.3 MEQ/L (22.0-26.0); ABG O2 SATURATION 74.1 % (95.0-99.0); ABG TOTAL CO2 51.6 MEQ/L (22.0-29.0)
[2021-08-03 08:33] LABS: ABG PARTIAL PRESSURE CO2 139.3 mmHg (35.0-45.0); ABG PARTIAL PRESSURE O2 48.2 mmHg (75.0-100.0); ABG pH (ARTERIAL) 7.149 UNITS (7.350-7.450)
[2021-08-03] MEDS ORDERED: INSULIN REGULAR IN 0.9 % NACL 100 UNIT in IV 1 EA IV SCH ×2 (09:00)
[2021-08-03 09:30] LABS: TRIGLYCERIDES LEVEL 408 MG/DL (<150)
[2021-08-03] MEDS: ENOXAPARIN 40MG/0.4ML SYRINGE (J1650 PER 10MG) SC SCH ×2 (10:34→22:35)
[2021-08-03] MEDS: INSULIN IV RATE CHANGE DOCUMENTATION ML/HR XX SCH ×5 (11:09→18:06)
--- NOTE | 2021-08-03 11:28 | IPNPDOC ---
Text Note Date of Service The patient was seen on 08/03/21. NOTE CRITICAL CARE PROGRESS NOTE: SUBJECTIVE: Patient seen and examined at bedside. Patient remains on mechanical ventilation. This morning patient was having blood clots suctioned from the mouth and he is having some bloody fluid coming from his right chest tube. Heparin was held. He is on the following drips: Nimbex, propofol, fentanyl. He is tolerating tube feeds and they are at goal. He is having bowel movements. All other ROS are negative except as mentioned above PHYSICAL EXAMINATION: VITAL SIGNS: Please see below. GENERAL APPEARANCE: On mechanical ventilation. HEENT: ET tube in place no thyromegaly, trachea midline, PERRLA. normal mucous membranes RESPIRATORY: CTA B/L, good air entry. Bilateral chest tubes in place with intermittent air leak CARDIOVASCULAR: +s1 s2, no murmurs. ABDOMEN: nontender, not distended, +BS EXTREMITIES: Bilateral leg edema is present. SKIN: Coccyx deep tissue injury. NEUROLOGICAL: Sedated and paralyzed PERTINENT LABS/IMAGING: Chest x-ray today shows bilateral chest tubes in place without pneumothorax. Bilateral infiltrates are unchanged. TLC and OG tube are okay ET tube is high. IMPRESSION: The most urgent problems requiring my immediate attention at bedside are: 1. ARDS/COVID pneumonia. 2. Profound hypoxemic and hypercapnic respiratory failure on the basis of the above. 3. COVID-19. 4. Unvaccinated state. 5. Full dose anticoagulation. 6. DNR status. 7. Hyperglycemia. 8. Septic shock resolved 9. Bilateral pneumothorax status post chest tube 10. Morbid obesity 11. 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 PULM: HOB 30 degrees. Maintain Sp02 88 to 96%. Titrate down oxygen as tolerated. Unable to prone given his morbid obesity and the presence of bilateral chest tubes. Keep chest tubes to suction as there is intermittent air leak. ABG pH 7.14 CO2 139 O2 48 on /100/20. Will increase respiratory rate to 30. Check ABG in 2 hours. Advance ET tube 2 cm. Follow-up chest x-ray. Continue with LTVV with goal plateau less than 40 and driving pressure less than 15. Can accept higher plateaus in patients that are morbidly obese. Allow for permissive hypercapnia. CARDIO: Maintain MAPs 60-65. Currently not on vasopressors. We will try to maintain equal fluid balance. increase Lasix to 60 mg every [address] A line to ensure accurate blood gas. GI: OG feeds. DC laxatives Monitor triglyceride while on propofol RENAL: Free water through OG tube 200 every 8 ID: DC Zosyn and start meropenem 1 g every 8 hours. Follow-up speciation of gram- negative felicia in blood. Unable to get tracheal aspirate as this would cause derecruitment and further worsen his oxygenation status He is status post a course of baricitinib and remdesivir. Decadron is 6 mg every 12h day 14. WIll start taper tomorrow. Change Tejada catheter and send urinalysis and urine culture from new catheter. If hemodynamic compromise will start micafungin. ENDO: Monitor FS per routine. Goal range 140-180. Start insulin drip and DC subcutaneous insulin. HEME: Will DC heparin drip as patient is having bleeding from his mouth and chest tubes. We will start Lovenox 40 mg every 12 hours. Lower extremity duplex is negative. LINES/CATHETERS: Right IJ TLC is clean. Right PICC line is clean. Tejada in place. Bilateral chest tubes. CODE STATUS: Patient is DNR. DISPOSITION: Keep in ICU. Grave prognosis, family at bedside made aware that he is not likely to survive this hospitalization. A total of 55 minutes of critical care time spent at bedside, not including procedures. VS,Fishbone, I+O VS, Fishbone, I+O Laboratory Tests 08/03/21 05:55 Vital Signs Date Time Temp Pulse Resp B/P (MAP) Pulse Ox O2 Delivery O2 Flow Rate FiO2 08/03/21 08:10 93 26 78 100 08/03/21 06:00 135/61 (85) Ventilator 08/03/21 04:00 98.2 07/30/21 17:17 16.0 I&O- Last 24 Hours up to 6 AM 08/03/21 06:00 Intake Total 6472 ml Output Total 5340 ml Balance 1132 ml HUYEN FLETCHER MD Aug 03, 2021 11:28
--- NOTE | 2021-08-03 12:16 | REP ---
INDICATION: ett placement COMPARISON: 08/03/2021 at 5:56 a.m. TECHNIQUE: Portable AP view of the chest FINDINGS: Endotracheal tube 4 cm above the danita. Nasogastric tube courses below left hemidiaphragm. Bilateral chest tubes in stable position. Right IJ line and right PICC line in stable position. Diffuse hazy opacities along with lower lobe consolidations and possible layering effusion similar to prior examination. IMPRESSION: 1. Lines and tubes in satisfactory position. 2. Diffuse bilateral opacities and lower lobe atelectasis/consolidations with possible effusion again noted and essentially stable. <Electronically signed by Raz Diaz > 08/03/21 1212
[2021-08-03] MEDS: MEROPENEM INJ 1 GM in IV 1 EA IV SCH ×2 (12:34→20:07)
[2021-08-03 12:42] LABS: ABG BASE EXCESS 8.5 (-2.0-2.0); ABG HCO3 37.9 MEQ/L (22.0-26.0); ABG PARTIAL PRESSURE CO2 86.7 mmHg (35.0-45.0); ABG PARTIAL PRESSURE O2 49.8 mmHg (75.0-100.0); ABG TOTAL CO2 40.6 MEQ/L (22.0-29.0); ABG pH (ARTERIAL) 7.259 UNITS (7.350-7.450)
--- NOTE | 2021-08-03 12:46 | ROOPDOC ---
[facility] Report Of Operation Report of Operation INDICATION: Need for frequent ABG PROCEDURE: Left radial arterial line PROCEDURE MEDIA LIBRARIAN: Dr Agee CONSENT: Verbal consent was obtained prior to the procedure from spouse. Indications, risks, and benefits were explained at length. PROCEDURE SUMMARY: A time out was performed. My hands were washed immediately prior to the procedure. I wore a surgical cap, mask with protective eyewear, sterile gown and sterile gloves throughout the procedure. After an Kal test was performed to ensure adequate perfusion, the left wrist was prepped using chlorhexidine scrub and draped in sterile fashion using a three quarter sheet drape and sterile towels. Using ultrasound guidance the radial artery was identified. Anesthesia was achieved using 1% lidocaine. Using the Arrow Radial Arterial Line Kit, a needle was inserted into the radial artery. Arterial blood was seen to pulsate in the flash chamber. The internal guidewire was advanced easily into the radial artery. The catheter was then advanced over the wire and the needle and wire were withdrawn. The catheter was sutured in place. A sterile opsite was placed over the catheter at the insertion site. The patient tolerated the procedure wi thout any hemodynamic compromise. At the time of procedure completion, the catheter was connected to the site monitor and calibrated. Appropriate waveform and blood pressure tracing was observed. Estimated blood loss is 5 cc. HUYEN AGEE MD Aug 03, 2021 12:46
[2021-08-03 13:27] LABS: APPEARANCE, URINE CLOUDY (CLEAR); BACTERIA, URINE AUTO NEGATIVE (NEGATIVE); BILIRUBIN, URINE AUTO NEGATIVE (NEGATIVE); BLOOD, URINE BLOOD 2+ (NEGATIVE); COLOR, URINE AMBER (YELLOW); GLUCOSE, URINE (UA) AUTO NEGATIVE (NEGATIVE); KETONE, URINE AUTO NEGATIVE (NEGATIVE); LEUKOCYTE ESTERASE, URINE AUTO 3+ (NEGATIVE); MUCUS, URINE SMALL (NEGATIVE); NITRITE, URINE AUTO NEGATIVE (NEGATIVE); PROTEIN, URINE AUTO 1+ mg/dL (NEGATIVE); RBC, URINE AUTO TNTC /HPF (0-3); SQUAMOUS EPITHELIAL CELL UR AU 5 /HPF (0-6); TRANSITIONAL EPITHELIAL AUTO 4 /HPF; WBC, URINE AUTO TNTC /HPF (0-3)
[2021-08-03] MEDS: FUROSEMIDE 40MG/4ML VIAL (J1940) IV SCH (16:37)
[2021-08-03] MEDS: INSULIN REGULAR IN 0.9 % NACL 100 UNIT in IV 1 EA IV SCH ×2 (17:06)
[2021-08-04] VITALS (31 sets, daily range): BP systolic 86–118; BP diastolic 42–58
[2021-08-04] MEDS: propofoL 1,000 MG in IV 1 EA IV SCH ×16 (00:22→23:44)
[2021-08-04] MEDS: FUROSEMIDE 40MG/4ML VIAL (J1940) IV SCH ×3 (01:00→16:30)
[2021-08-04] MEDS: CISATRACURIUM 200 MG in NS 480 ML IV SCH ×5 (03:30→23:43)
[2021-08-04] MEDS: MEROPENEM INJ 1 GM in IV 1 EA IV SCH (04:31)
[2021-08-04] MEDS: fentaNYL CITRATE 1,000 MCG in NS 80 ML IV SCH ×2 (05:09→14:47)
[2021-08-04] MEDS: SODIUM CHLORIDE 0.9% INJ 10 ML SYR IV SCH ×2 (06:00→17:09)
[2021-08-04 06:06] LABS: ABG BASE EXCESS 12.4 (-2.0-2.0); ABG HCO3 42.2 MEQ/L (22.0-26.0); ABG O2 SATURATION 78.6 % (95.0-99.0); ABG STANDARD HCO3 35.7 MEQ/L (22.0-26.0); ABG TOTAL CO2 45.1 MEQ/L (22.0-29.0)
[2021-08-04 06:09] LABS: ABG PARTIAL PRESSURE O2 48.8 mmHg (75.0-100.0)
[2021-08-04 06:16] LABS: HEMATOCRIT 30.2 % (42.0-52.0); MEAN CORPUSCULAR HEMOGLOBIN 32.6 pg (27.0-33.0); MEAN CORPUSCULAR HGB CONC 29.8 g/dl (32.0-36.5); MEAN CORPUSCULAR VOLUME 109.4 fl (80.0-96.0); PLATELET COUNT, AUTOMATED 158 10^3/uL (150-450); RED BLOOD COUNT 2.76 10^6/uL (4.30-6.10); WHITE BLOOD COUNT 29.4 10^3/uL (4.0-10.0)
[2021-08-04] MEDS: INSULIN REGULAR IN 0.9 % NACL 100 UNIT in IV 1 EA IV SCH ×2 (06:16)
[2021-08-04 06:49] LABS: ALT/SGPT 67 U/L (12-78); BILIRUBIN,TOTAL 0.8 MG/DL (0.2-1.0); BLOOD UREA NITROGEN 68 MG/DL (7-18); CALCIUM LEVEL 7.2 MG/DL (8.5-10.1); CARBON DIOXIDE LEVEL 41 MEQ/L (21-32); CHLORIDE LEVEL 106 MEQ/L (98-107); CREATININE FOR GFR 0.76 MG/DL (0.70-1.30); GLOMERULAR FILTRATION RATE > 60.0 (>60); GLUCOSE, FASTING 152 MG/DL (70-100); POTASSIUM SERUM 4.9 MEQ/L (3.5-5.1); SODIUM LEVEL 147 MEQ/L (136-145); TOTAL PROTEIN 5.5 GM/DL (6.4-8.2)
--- NOTE | 2021-08-04 08:16 | REP ---
INDICATION: intubation, COMPARISON: 08/03/2021 TECHNIQUE: Portable AP view of the chest FINDINGS: Endotracheal tube, right IJ line, right PICC line, and bilateral chest tubes are in stable satisfactory position. The endotracheal tube is not visible beyond the distal esophagus and warrants re-evaluation. The cardiac silhouette and bilateral lung justin show no significant change from prior examination. Continued predominately lower lobe opacities and left upper lobe opacity are unchanged. Effusion cannot be excluded. No obvious pneumothorax. IMPRESSION: 1. No significant change from prior examination. 2. Nasogastric tube position cannot be ascertained and may warrant re-evaluation. Consider abdominal radiograph for confirmation below the diaphragm. <Electronically signed by Raz Diaz > 08/04/21 0842
[2021-08-04] MEDS: CHLORHEXIDINE GLUCONATE 0.12 % 15ML UDC (PERIDEX ORAL RINSE) MT SCH ×2 (09:00→21:08)
[2021-08-04] MEDS: dexameTHASONE 20MG/5ML VIAL (J1100 PER 1MG) IV SCH (09:00)
[2021-08-04] MEDS: PANTOPRAZOLE 40MG VIAL (C9113 PER 1) IV SCH (09:00)
[2021-08-04] MEDS: ENOXAPARIN 40MG/0.4ML SYRINGE (J1650 PER 10MG) SC SCH ×2 (09:17→21:08)
[2021-08-04] MEDS: INSULIN IV RATE CHANGE DOCUMENTATION ML/HR XX SCH ×2 (09:34→14:11)
--- NOTE | 2021-08-04 10:35 | IPNPDOC ---
Text Note Date of Service The patient was seen on 08/04/21. NOTE CRITICAL CARE PROGRESS NOTE: SUBJECTIVE: Patient is seen and examined at bedside and he remains on mechanical ventilation. He is afebrile and his maps are 75. He is tachycardic. His ins are 6000 and outs are 2500. He has good urine output. There were no overnight issues. He is on the following drips Nimbex 4, propofol 70, fentanyl 100 and insulin drip. No pressors. He is tolerating tube feeds and they are at goal is. He is having bowel movements. All other ROS are negative except as mentioned above PHYSICAL EXAMINATION: VITAL SIGNS: Please see below. GENERAL APPEARANCE: In extremis on mechanical ventilation HEENT: ET tube intact. No thyromegaly, trachea midline, PERRLA. normal mucous membranes RESPIRATORY: CTA B/L, good air entry. Bilateral chest tubes in place with no air leak. CARDIOVASCULAR: +s1 s2, no murmurs. ABDOMEN: nontender, not distended, +BS EXTREMITIES: no edema or erythema. palpable distal pulses SKIN: Buttock stage II ulcer NEUROLOGICAL: Sedated and paralyzed PERTINENT LABS/IMAGING: Chest x-ray from today shows the OG tube, TLC and ET tube are satisfactory position. Bilateral chest tubes in place without pneumothorax. Bilateral opacities unchanged. IMPRESSION: The most urgent problems requiring my immediate attention at bedside are: 1. ARDS/COVID pneumonia. 2. Profound hypoxemic and hypercapnic respiratory failure on the basis of the above. 3. COVID-19. 4. Unvaccinated state. 5. Full dose anticoagulation. 6. DNR status. 7. Hyperglycemia. 8. Septic shock resolved 9. Bilateral pneumothorax status post chest tube 10. Morbid obesity 11. 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 PULM: HOB 30 degrees. Maintain Sp02 88 to 96%. Titrate down oxygen as tolerated. Unable to prone given his morbid obesity and the presence of bilateral chest tubes. Keep chest tubes to suction as there is intermittent air leak. ABG pH 7.27 CO2 94 O2 48.8 on 30/360/100/20. Plateau 45. Vent changes as follows: Respiratory rate 34 PEEP 18. Repeat ABG in 2 hours. Continue with LTVV with goal plateau less than 40 and driving pressure less than 15. Can accept higher plateaus in patients that are morbidly obese. Allow for permissive hypercapnia. CARDIO: Maintain MAPs 60-65. Currently not on vasopressors. We will try to maintain equal fluid balance. increase Lasix to 60 mg every 8 hours. Start albumin 25 g twice daily to aid in diuresis. GI: OG feeds. Monitor triglyceride while on propofol RENAL: Free water through OG tube to 50 every 8 ID: Start Levaquin for stenotrophomonas in blood. Monitor QTC. We will work on changing central lines. Tejada catheter was changed yesterday. Unable to get tracheal aspirate as this would cause derecruitment and further worsen his oxygenation status. He is status post a course of baricitinib and remdesivir. Decadron 6 mg daily is day 14. ENDO: Monitor FS per routine. Goal range 140-180. Insulin drip HEME: Lovenox 40 mg every 12 hours for DVT prophylaxis. Patient had bleeding from the chest tube in mouth while on heparin drip. Lower extremity duplex is negative. LINES/CATHETERS: Right IJ TLC is clean. Right PICC line is clean. Tejada in place. Bilateral chest tubes. CODE STATUS: Patient is DNR. DISPOSITION: Keep in ICU. Grave prognosis, family at bedside made aware that he is not likely to survive this hospitalization. A total of 60 minutes of critical care time spent at bedside, not including procedures. VS,Fishbone, I+O VS, Fishbone, I+O Laboratory Tests 08/04/21 05:49 Vital Signs Date Time Temp Pulse Resp B/P (MAP) Pulse Ox O2 Delivery O2 Flow Rate FiO2 08/04/21 09:13 111 30 112/56 84 Ventilator 100 08/04/21 09:13 99.1 16.0 I&O- Last 24 Hours up to 6 AM 08/04/21 06:00 Intake Total 5720 ml Output Total 2390 ml Balance 3330 ml HUYEN FLETCHER MD Aug 04, 2021 10:35
[2021-08-04] MEDS ORDERED: TRIMETHOPRIM/SULFAMETHOXAZOLE 160 MG in D5W 500 ML IV SCH (12:00)
[2021-08-04 13:20] LABS: ABG BASE EXCESS 15.6 (-2.0-2.0); ABG HCO3 44.9 MEQ/L (22.0-26.0); ABG O2 SATURATION 72.8 % (95.0-99.0); ABG STANDARD HCO3 38.9 MEQ/L (22.0-26.0); ABG TOTAL CO2 47.6 MEQ/L (22.0-29.0); ABG pH (ARTERIAL) 7.316 UNITS (7.350-7.450)
[2021-08-04 13:23] LABS: ABG PARTIAL PRESSURE CO2 89.9 mmHg (35.0-45.0); ABG PARTIAL PRESSURE O2 40.6 mmHg (75.0-100.0)
[2021-08-04] MEDS: LevoFLOXacin IV 750 MG in IV 1 EA IV SCH (14:28)
--- NOTE | 2021-08-04 16:15 | REP ---
INDICATION: S/p left IJ CVC placement COMPARISON: 08/04/2021 at 7:31 a.m. TECHNIQUE: Portable AP view of the chest FINDINGS: Bilateral chest tubes in stable position. Endotracheal tube and nasogastric tube are in satisfactory stable position. Right IJ line with tip in the SVC now identified. Bilateral opacities and lower lobe consolidations with air bronchograms unchanged. No obvious pneumothorax. IMPRESSION: 1. Newly placed right IJ line with tip in the SVC. No pneumothorax. 2. Bilateral opacities and consolidations essentially unchanged. <Electronically signed by Raz Diaz > 08/04/21 1611
[2021-08-04] MEDS ORDERED: NOREPINEPHRINE 4 MG/4 ML AMP As Ordered ONE (16:27)
--- NOTE | 2021-08-04 16:33 | ROOPDOC ---
[facility] Report Of Operation Report of Operation INDICATION: Venous access PROCEDURE: Left internal jugular triple-lumen catheter placement PROCEDURE MECHANICAL RESEARCH ENGINEER: Dr. Agee CONSENT: Verbal consent was obtained by the spouse prior to the procedure. Indications, risks, and benefits were explained at length. PROCEDURE SUMMARY: A time out was performed. My hands were washed immediately prior to the procedure. I wore a surgical cap, mask with protective eyewear, full gown and sterile gloves throughout the procedure. The patient was placed in Trendelenburg position. The left chest region was prepped using chlorhexidine scrub and draped in sterile fashion using a full drape and sterile probe cover and sterile gel employed. The left internal Jugular vein was identified using the ultrasound. Anesthesia was achieved over the vein using 1% lidocaine. Using real-time out of plane guidance, the introducer needle was inserted into the Internal Jugular vein under direct ultrasound visualization. Venous blood was withdrawn. The syringe was removed and a guidewire was advanced into the introducer needle. The guidewire was visualized in the Internal Jugular Vein by ultrasound. A small incision was made at the skin surface with a scalpel and the introducer needle was exchanged for a dilator over the guidewire. After appropriate dilation was obtained, the dilator was exchanged over the wire for a central venous catheter. The wire was removed and the catheter was sutured in place at 17 cm. A sterile shield was placed over the catheter at the insertion site. The patient tolerated the procedure without any hemodynamic compromise. At time of procedure completion, all ports aspirated and flushed properly. Post-procedure chest x-ray is pending at this time. Estimated blood loss is 5 cc. HUYEN AGEE MD Aug 04, 2021 16:33
[2021-08-04] MEDS: NOREPINEPHRINE BITARTRATE 8 MG in D5W 492 ML IV SCH (17:04)
[2021-08-05] VITALS (75 sets, daily range): BP systolic 79–116; BP diastolic 34–73
[2021-08-05] MEDS: FUROSEMIDE 40MG/4ML VIAL (J1940) IV SCH ×2 (01:33→08:32)
[2021-08-05] MEDS: propofoL 1,000 MG in IV 1 EA IV SCH ×7 (01:59→23:30)
[2021-08-05] MEDS: CISATRACURIUM 200 MG in NS 480 ML IV SCH ×6 (02:24→23:57)
[2021-08-05] MEDS: INSULIN REGULAR IN 0.9 % NACL 100 UNIT in IV 1 EA IV SCH ×4 (05:54→09:06)
[2021-08-05 05:57] LABS: HEMATOCRIT 29.4 % (42.0-52.0); MEAN CORPUSCULAR HEMOGLOBIN 33.7 pg (27.0-33.0); MEAN CORPUSCULAR HGB CONC 30.6 g/dl (32.0-36.5); MEAN CORPUSCULAR VOLUME 110.1 fl (80.0-96.0); PLATELET COUNT, AUTOMATED 169 10^3/uL (150-450); RED BLOOD COUNT 2.67 10^6/uL (4.30-6.10)
[2021-08-05 06:00] LABS: ABG BASE EXCESS 13.1 (-2.0-2.0); ABG HCO3 41.7 MEQ/L (22.0-26.0); ABG O2 SATURATION 71.4 % (95.0-99.0); ABG STANDARD HCO3 36.3 MEQ/L (22.0-26.0); ABG TOTAL CO2 44.4 MEQ/L (22.0-29.0); ABG pH (ARTERIAL) 7.307 UNITS (7.350-7.450); WHITE BLOOD COUNT 31.2 10^3/uL (4.0-10.0)
[2021-08-05 06:09] LABS: ABG PARTIAL PRESSURE CO2 85.4 mmHg (35.0-45.0)
[2021-08-05 06:10] LABS: ABG PARTIAL PRESSURE O2 41.5 mmHg (75.0-100.0)
[2021-08-05] MEDS: SODIUM CHLORIDE 0.9% INJ 10 ML SYR IV SCH ×2 (06:18→18:00)
[2021-08-05 07:43] LABS: ALBUMIN 2.3 GM/DL (3.2-5.2); ALT/SGPT 59 U/L (12-78); BILIRUBIN,TOTAL 0.9 MG/DL (0.2-1.0); BLOOD UREA NITROGEN 88 MG/DL (7-18); CALCIUM LEVEL 7.3 MG/DL (8.5-10.1); CARBON DIOXIDE LEVEL 40 MEQ/L (21-32); CHLORIDE LEVEL 102 MEQ/L (98-107); CREATININE FOR GFR 1.04 MG/DL (0.70-1.30); GLOMERULAR FILTRATION RATE > 60.0 (>60); GLUCOSE, FASTING 153 MG/DL (70-100); POTASSIUM SERUM 5.4 MEQ/L (3.5-5.1); SODIUM LEVEL 145 MEQ/L (136-145); TOTAL PROTEIN 5.5 GM/DL (6.4-8.2); TRIGLYCERIDES LEVEL 798 MG/DL (<150)
--- NOTE | 2021-08-05 08:29 | REP ---
INDICATION: intubation, COMPARISON: 08/04/2021 TECHNIQUE: Portable AP view of the chest FINDINGS: Endotracheal tube, left IJ line, and bilateral chest tubes are in stable satisfactory position. The distal aspect of the nasogastric tube likely extends below the left hemidiaphragm but is incompletely evaluated. The bilateral lung justin demonstrate diffuse opacities/lower lobe consolidations and possible right pleural effusion similar to prior examination. No pneumothorax. IMPRESSION: 1. Evaluation of the nasogastric tube is limited. 2. Diffuse bilateral opacities, lower lobe consolidations and possible right pleural effusion again noted and similar to prior examination.. <Electronically signed by Raz Diaz > 08/05/21 [id number]
[2021-08-05] MEDS: CHLORHEXIDINE GLUCONATE 0.12 % 15ML UDC (PERIDEX ORAL RINSE) MT SCH ×2 (08:32→20:20)
[2021-08-05] MEDS: PANTOPRAZOLE 40MG VIAL (C9113 PER 1) IV SCH (08:32)
[2021-08-05] MEDS: dexameTHASONE 20MG/5ML VIAL (J1100 PER 1MG) IV SCH (08:34)
[2021-08-05] MEDS: fentaNYL CITRATE 1,000 MCG in NS 80 ML IV SCH ×3 (09:08→21:45)
[2021-08-05] MEDS ORDERED: REFRIGERATOR IV KEYS XX PRN (10:10)
--- NOTE | 2021-08-05 11:07 | IPNPDOC ---
Text Note Date of Service The patient was seen on 08/05/21. NOTE CRITICAL CARE PROGRESS NOTE: SUBJECTIVE: Patient seen and examined at bedside. He remains on mechanical ventilation. There were no overnight events. He is on the following drips levo, propofol, fentanyl, Nimbex. He is tolerating his feeds and is having bowel movements. All other ROS are negative except as mentioned above PHYSICAL EXAMINATION: VITAL SIGNS: Please see below. GENERAL APPEARANCE: On mechanical ventilation. Morbidly obese HEENT: ET tube in place. No thyromegaly, trachea midline, PERRLA. normal mucous membranes RESPIRATORY: CTA B/L, good air entry. bilateral chest tubes, no air leak CARDIOVASCULAR: +s1 s2, no murmurs. ABDOMEN: nontender, not distended, +BS EXTREMITIES: Significant leg edema bilateral, no erythema. palpable distal pulses SKIN: Buttock ulcers NEUROLOGICAL: sedated and paralyzed PERTINENT LABS/IMAGING: Chest x-ray from today shows bilateral opacities without pneumothorax. Chest tubes are in place. TLC, OG tube, ET tube are okay. IMPRESSION: The most urgent problems requiring my immediate attention at bedside are: 1. ARDS/COVID pneumonia. 2. Profound hypoxemic and hypercapnic respiratory failure on the basis of the above. 3. COVID-19. 4. Unvaccinated state. 5. Full dose anticoagulation. 6. DNR status. 7. Hyperglycemia. 8. Septic shock 9. Bilateral pneumothorax status post chest tube 10. Morbid obesity 11. 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 Continue with fentanyl. PULM: HOB 30 degrees. Maintain Sp02 88 to 96%. Titrate down oxygen as tolerated. Unable to prone given his morbid obesity and the presence of bilateral chest tubes. Keep chest tubes to suction as there is intermittent air leak. ABG pH 7.3 CO2 85 O2 41 on /100/20 Plateau is 40. no vent changes. Continue with LTVV with goal plateau less than 40 and driving pressure less than 15. Can accept higher plateaus in patients that are morbidly obese. Allow for permissive hypercapnia. CARDIO: Maintain MAP of 65. titrate down levo as tolerate. We will try to maintain equal fluid balance. Lasix drip 10 mg/h, albumin 25 g twice daily to aid in diuresis. GI: OG feeds. GI prophylaxis Monitor triglyceride while on propofol, will try to taper off propofol RENAL: Free water through OG tube . patiromer x1 and Kayexalate x1 for hyperkalemia. ID: Levaquin day 2 for stenotrophomonas in blood. Monitor QTC. PICC line and right IJ TLC were removed. He has new left IJ TLC day 2. Tejada catheter was changed. Unable to get tracheal aspirate as this would cause derecruitment and further worsen his oxygenation status. He is status post a course of baricitinib and remdesivir. Decadron 6 mg daily is day 15 ENDO: Monitor FS per routine. Goal range 140-180. Insulin drip HEME: Lovenox 40 mg every 12 hours for DVT prophylaxis. Patient had bleeding from the chest tube in mouth while on heparin drip. Lower extremity duplex is negative. LINES/CATHETERS: Left IJ TLC, left radial A-line Tejada in place. Bilateral chest tubes. CODE STATUS: Patient is DNR. DISPOSITION: Keep in ICU. Grave prognosis, family at bedside made aware that he is not likely to survive this hospitalization. A total of 65 minutes of critical care time spent at bedside, not including procedures. VS,Fishbone, I+O VS, Fishbone, I+O Laboratory Tests 08/05/21 05:40 Vital Signs Date Time Temp Pulse Resp B/P (MAP) Pulse Ox O2 Delivery O2 Flow Rate FiO2 08/05/21 08:00 115 34 83 100 08/05/21 07:18 Ventilator 08/05/21 04:00 98.1 108/52 (75) 104/52 08/04/21 13:55 16.0 I&O- Last 24 Hours up to 6 AM 08/05/21 06:00 Intake Total 5446.7 ml Output Total 2980 ml Balance 2466.7 ml HUYEN FLETCHER MD Aug 05, 2021 11:07
[2021-08-05] MEDS: ENOXAPARIN 40MG/0.4ML SYRINGE (J1650 PER 10MG) SC SCH ×2 (11:42→22:00)
[2021-08-05] MEDS: MIDAZOLAM HCL 100 MG in D5W 80 ML IV SCH (11:45)
[2021-08-05] MEDS ORDERED: SOD POLYSTYRENE SULFONATE SUSP 15 GM/60 ML UD PO ONE (12:00)
[2021-08-05] MEDS ORDERED: PATIROMER SORBITEX CALCIUM 8.4 GM POWDER PACKET (VELTASSA) PO SCH (12:00)
[2021-08-05] MEDS: NOREPINEPHRINE BITARTRATE 8 MG in D5W 492 ML IV SCH (12:47)
[2021-08-05] MEDS: FUROSEMIDE injection 250 MG in D5W 225 ML IV SCH (12:58)
[2021-08-05] MEDS: LevoFLOXacin IV 750 MG in IV 1 EA IV SCH (13:39)
--- NOTE | 2021-08-05 18:32 | ECGEPIP ---
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
[2021-08-06] VITALS (37 sets, daily range): BP systolic 91–126; BP diastolic 37–57
[2021-08-06] MEDS: NOREPINEPHRINE BITARTRATE 8 MG in D5W 492 ML IV SCH ×3 (01:28→22:20)
[2021-08-06] MEDS: propofoL 1,000 MG in IV 1 EA IV SCH ×7 (02:07→23:32)
[2021-08-06] MEDS: CISATRACURIUM 200 MG in NS 480 ML IV SCH ×2 (04:05→06:21)
[2021-08-06] MEDS: MIDAZOLAM HCL 100 MG in D5W 80 ML IV SCH ×2 (04:36→20:30)
[2021-08-06 06:06] LABS: ABG BASE EXCESS 6.9 (-2.0-2.0); ABG HCO3 36.2 MEQ/L (22.0-26.0); ABG O2 SATURATION 74.3 % (95.0-99.0); ABG STANDARD HCO3 30.3 MEQ/L (22.0-26.0); ABG TOTAL CO2 38.9 MEQ/L (22.0-29.0)
[2021-08-06 06:09] LABS: ABG PARTIAL PRESSURE CO2 87.4 mmHg (35.0-45.0); ABG PARTIAL PRESSURE O2 45.1 mmHg (75.0-100.0); ABG pH (ARTERIAL) 7.235 UNITS (7.350-7.450)
[2021-08-06] MEDS: SODIUM CHLORIDE 0.9% INJ 10 ML SYR IV SCH ×2 (06:21→18:32)
[2021-08-06 06:32] LABS: HEMATOCRIT 27.4 % (42.0-52.0); HEMOGLOBIN 8.1 g/dl (13.5-17.5); MEAN CORPUSCULAR HEMOGLOBIN 33.2 pg (27.0-33.0); MEAN CORPUSCULAR HGB CONC 29.6 g/dl (32.0-36.5); MEAN CORPUSCULAR VOLUME 112.3 fl (80.0-96.0); PLATELET COUNT, AUTOMATED 154 10^3/uL (150-450); RED BLOOD COUNT 2.44 10^6/uL (4.30-6.10); WHITE BLOOD COUNT 24.9 10^3/uL (4.0-10.0)
[2021-08-06 07:07] LABS: ALBUMIN 2.5 GM/DL (3.2-5.2); ALT/SGPT 65 U/L (12-78); BILIRUBIN,TOTAL 0.9 MG/DL (0.2-1.0); BLOOD UREA NITROGEN 99 MG/DL (7-18); CALCIUM LEVEL 7.7 MG/DL (8.5-10.1); CARBON DIOXIDE LEVEL 40 MEQ/L (21-32); CHLORIDE LEVEL 102 MEQ/L (98-107); CREATININE FOR GFR 1.18 MG/DL (0.70-1.30); GLOMERULAR FILTRATION RATE > 60.0 (>60); GLUCOSE, FASTING 162 MG/DL (70-100); MAGNESIUM LEVEL 3.1 MG/DL (1.8-2.4); POTASSIUM SERUM 5.7 MEQ/L (3.5-5.1); SODIUM LEVEL 143 MEQ/L (136-145); TOTAL PROTEIN 5.6 GM/DL (6.4-8.2); TRIGLYCERIDES LEVEL 585 MG/DL (<150)
[2021-08-06] MEDS ORDERED: SOD POLYSTYRENE SULFONATE SUSP 15 GM/60 ML UD PO ONE (07:35)
[2021-08-06] MEDS: dexameTHASONE 20MG/5ML VIAL (J1100 PER 1MG) IV SCH (08:26)
[2021-08-06] MEDS: PANTOPRAZOLE 40MG VIAL (C9113 PER 1) IV SCH (08:26)
[2021-08-06] MEDS: CHLORHEXIDINE GLUCONATE 0.12 % 15ML UDC (PERIDEX ORAL RINSE) MT SCH ×2 (08:26→21:32)
[2021-08-06] MEDS: ENOXAPARIN 40MG/0.4ML SYRINGE (J1650 PER 10MG) SC SCH ×2 (08:27→22:00)
--- NOTE | 2021-08-06 08:28 | REP ---
INDICATION: intubation, COMPARISON: 08/05/2021 TECHNIQUE: Portable AP view of the chest FINDINGS: Endotracheal tube 5 cm above the danita. Nasogastric tube courses below left hemidiaphragm. Left IJ line with tip in the SVC. Bilateral chest tubes are stable. Bilateral opacities are again identified and essentially unchanged. No obvious pneumothorax. Small residual amount of right pleural fluid cannot be excluded. IMPRESSION: 1. Lines and tubes in satisfactory stable position. 2. Bilateral opacities essentially unchanged. <Electronically signed by Raz Diaz > 08/06/21 0803
[2021-08-06] MEDS ORDERED: PATIROMER SORBITEX CALCIUM 8.4 GM POWDER PACKET (VELTASSA) PO SCH (09:00)
[2021-08-06] MEDS ORDERED: CISATRACURIUM 10MG/ML 20 ML VIAL IV PRN (09:40)
--- NOTE | 2021-08-06 10:11 | IPNPDOC ---
Text Note Date of Service The patient was seen on 08/06/21. NOTE CRITICAL CARE PROGRESS NOTE: SUBJECTIVE: Patient seen and examined at bedside. He remains on mechanical ventilation. There were no overnight events. He is on the following drips fentanyl 3, propofol 45, Versed, Nimbex was off since yesterday. He is on Lasix drip 10 mg an hour. He is on Levophed 10 and insulin drip. He is tolerating tube feeds and they are at goal. He is having bowel movements. All other ROS are negative except as mentioned above PHYSICAL EXAMINATION: VITAL SIGNS: Please see below. GENERAL APPEARANCE: On mechanical ventilation HEENT: ET tube in place. No thyromegaly, trachea midline, PERRLA. normal mucous membranes RESPIRATORY: CTA B/L, good air entry. CARDIOVASCULAR: +s1 s2, no murmurs. ABDOMEN: nontender, not distended, +BS EXTREMITIES: 3+ bilateral pitting edema in the lower extremities. SKIN: Buttock decubitus ulcers. NEUROLOGICAL: Deeply sedated, positive brainstem reflex PERTINENT LABS/IMAGING: Chest x-ray from today shows improved bilateral opacities. Chest tubes are in place. There is no pneumothorax. TLC, OG, ET tube are in satisfactory position. ET tube is slightly high. IMPRESSION: The most urgent problems requiring my immediate attention at bedside are: 1. ARDS/COVID pneumonia. 2. Profound hypoxemic and hypercapnic respiratory failure on the basis of the above. 3. COVID-19. 4. Unvaccinated state. 5. Full dose anticoagulation. 6. DNR status. 7. Hyperglycemia. 8. Septic shock 9. Bilateral pneumothorax status post chest tube 10. Morbid obesity 11. 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 Continue to taper off propofol, can continue Versed and fentanyl and maintain Madhavi score 4-5. PULM: HOB 30 degrees. Maintain Sp02 88 to 96%. Titrate down oxygen as tolerated. Unable to prone given his morbid obesity and the presence of bilateral chest tubes. Keep chest tubes to suction as there is intermittent air leak. ABG pH 7.23 CO2 87 O2 45 on 34/360/100/20. Plateau is 49. Decrease PEEP to 18 and increase tidal volume to 380. Advance ET tube 2 cm. ABG at noon. Continue with LTVV with goal plateau less than 40 and driving pressure less than 15. Can accept higher plateaus in patients that are morbidly obese. Allow for permissive hypercapnia. CARDIO: Maintain MAP of 65. titrate down levo as tolerate. We will try to maintain equal fluid balance. increase lasix drip to 15mg/h, albumin 25g q12 to aid in diuresis GI: OG feeds. GI prophylaxis Monitor triglyceride while on propofol, will try to taper off propofol RENAL: Free water through OG tube. patiromer x1 and Kayexalate x1 for hyperkalemia. BMP at 4 PM Nephrology consult for possible CVVH ID: Levaquin day 3 for stenotrophomonas in blood. Repeat cultures negative. Monitor QTC. S/p line change. He has new left IJ TLC day 3. Tejada catheter was changed. Unable to get tracheal aspirate as this would cause derecruitment and further worsen his oxygenation status. He is status post a course of baricitinib and remdesivir. Decadron 6 mg daily is day 16 ENDO: Monitor FS per routine. Goal range 140-180. Insulin drip HEME: Lovenox 40 mg every 12 hours for DVT prophylaxis. Patient had bleeding from the chest tube in mouth while on heparin drip. Lower extremity duplex is negative. LINES/CATHETERS: Left IJ TLC, left radial A-line Tejada in place. Bilateral chest tubes. CODE STATUS: Patient is DNR. DISPOSITION: Keep in ICU. Grave prognosis, family at bedside made aware that he is not likely to survive this hospitalization. A total of 60 minutes of critical care time spent at bedside, not including procedures. VS,Fishbone, I+O VS, Fishbone, I+O Laboratory Tests 08/06/21 06:00 Vital Signs Date Time Temp Pulse Resp B/P (MAP) Pulse Ox O2 Delivery O2 Flow Rate FiO2 08/06/21 08:10 117 34 88 100 08/06/21 04:00 98.3 99/52 08/06/21 02:07 Ventilator 08/04/21 13:55 16.0 I&O- Last 24 Hours up to 6 AM 08/06/21 06:00 Intake Total 3276.5 ml Output Total 1880 ml Balance 1396.5 ml HUYEN FLETCHER MD Aug 06, 2021 10:11
[2021-08-06] MEDS: FUROSEMIDE injection 250 MG in D5W 225 ML IV SCH (12:03)
[2021-08-06 12:04] LABS: ABG BASE EXCESS 11.8 (-2.0-2.0); ABG HCO3 40.6 MEQ/L (22.0-26.0); ABG O2 SATURATION 77.6 % (95.0-99.0); ABG STANDARD HCO3 35.1 MEQ/L (22.0-26.0); ABG TOTAL CO2 43.3 MEQ/L (22.0-29.0); ABG pH (ARTERIAL) 7.291 UNITS (7.350-7.450)
[2021-08-06 12:07] LABS: ABG PARTIAL PRESSURE CO2 86.2 mmHg (35.0-45.0); ABG PARTIAL PRESSURE O2 45.1 mmHg (75.0-100.0)
--- NOTE | 2021-08-06 13:16 | CR ---
CONSULTATION DATE: 08/06/2021 CONSULTATION FOR: Jeffery Agee M.D. REASON FOR CONSULTATION: Acute renal failure and assistance with volume management. HISTORY OF PRESENT ILLNESS: Mr. Ho is a 31-year-old morbidly obese male who was admitted to [facility] on July 15 due to worsening hypoxemia while he already tested positive for COVID at home. Since then his hospital course has been quite complicated, and he has been on the ventilator for several days. HE has developed generalized anasarca and not diuresing well. Dr. Agee discussed his case with me a couple of times and had been trying to diurese him with intravenous Lasix drip; however, it did not work. A formal nephrology consultation was requested, and patient is seen today in intensive care unit. MEDICAL AND SURGICAL HISTORY: Patient has no significant medical problems other than morbid obesity and now he has tested positive for COVID and has developed respiratory failure. PERSONAL AND SOCIAL HISTORY: Patient is and lives with his and three children. FAMILY HISTORY: Noncontributory. MEDICATIONS: Patient had no active medications at home. ALLERGIES: Patient has no known drug allergies. CURRENT MEDICATIONS IN THE HOSPITAL: - Decadron 6 mg daily - Nimbex as needed for ventilator-requiring paralysis - Veltassa 16.8 grams daily - furosemide drip 15 mg per hour - midodrine as needed - Levophed infusion - levofloxacin 750 mg every 24 hours - Lovenox 40 mg every 12 hours - DuoNeb as needed four times a day. - fentanyl infusion - propofol - pantoprazole 40 mg IV daily - Tylenol as needed REVIEW OF SYSTEMS: Patient is intubated and sedated. At present, no other pertinent information is available. PHYSICAL EXAMINATION: Temperature 98.3 degrees Fahrenheit, heart rate 120 per minute, respiratory rate 34 per minute, blood pressure 99/52 mmHg, and oxygen saturation is 85% on 100% FiO2, . Endotracheal and orogastric tubes are in place. Patient has morbid obesity with generalized anasarca. He has tattoos all over his body. Heart sounds are tachycardic and lungs with diminished breath sounds bilaterally. Abdomen is obese, and bowel sounds present. Extremities without any cyanosis or clubbing. Generalized edema is present and tattoos all over his body. Neurologically he is currently sedated and paralyzed. His WBC count was 31.2 yesterday, and it is down to 24.9 today. Hemoglobin is 8.1 and hematocrit 7.4. Platelets 154. Blood gas this morning showed a pH of 7.23, pCO2 of 87.4, and pO2 of 45. Most recent blood gas at noon showed pH 7.29, pCO2 of 86, and pO2 of 45. Sodium is 143, potassium 5.3, chloride 102, CO2 of 40, BUN 99, and creatinine 1.18. Glucose 162 and calcium 7.7. Total protein 5.6 and albumin 2.5. PROBLEMS: 1. Acute renal failure, most likely related to septic shock, requiring pressors. He is grossly volume overloaded. I agree with efforts to diurese him, as he is now on 100% FiO2 and having difficulty with ventilation. I recommended to increase his Lasix drip to 15 per hour and also use intravenous albumin 25 grams every 12 hours due to significant third spacing of fluid. If these efforts fail over next 24 hours, we can consider starting continuous renal replacement therapy (CRRT). Patient is not a suitable candidate for intermittent dialysis due to hypotension requiring pressors and significant volume overload, for which he will need fluid removal slowly over 24-hour period. 2. Hyperkalemia. Patient has hyperkalemia related to acute renal failure and is being treated with Veltassa. Increasing Lasix drip is also likely to help with his hyperkalemia. 3. Bacteremia with Stenotrophomonas. Patient is being treated with levofloxacin 750 mg every 24 hours. I have discussed with Dr. Agee and recommended to adjust the dose for his renal function. Patient is certainly not a suitable candidate for Bactrim due to hyperkalemia and acute renal failure. Thank you for involving me in the care of Mr. Ho. I will follow him along with you.
[2021-08-06] MEDS: INSULIN IV RATE CHANGE DOCUMENTATION ML/HR XX SCH ×2 (13:26→16:28)
[2021-08-06] MEDS: LevoFLOXacin IV 750 MG in IV 1 EA IV SCH (13:31)
[2021-08-06 17:12] LABS: BLOOD UREA NITROGEN 96 MG/DL (7-18); CALCIUM LEVEL 8.2 MG/DL (8.5-10.1); CARBON DIOXIDE LEVEL 42 MEQ/L (21-32); CHLORIDE LEVEL 101 MEQ/L (98-107); CREATININE FOR GFR 1.07 MG/DL (0.70-1.30); GLOMERULAR FILTRATION RATE > 60.0 (>60); GLUCOSE, FASTING 210 MG/DL (70-100); POTASSIUM SERUM 5.3 MEQ/L (3.5-5.1); SODIUM LEVEL 144 MEQ/L (136-145)
[2021-08-06] MEDS: INSULIN REGULAR IN 0.9 % NACL 100 UNIT in IV 1 EA IV SCH ×2 (18:44)
[2021-08-07] VITALS (78 sets, daily range): BP systolic 100–135; BP diastolic 37–59
[2021-08-07] MEDS: fentaNYL CITRATE 1,000 MCG in NS 80 ML IV SCH ×2 (00:30→06:00)
[2021-08-07] MEDS: INSULIN IV RATE CHANGE DOCUMENTATION ML/HR XX SCH ×3 (03:49→06:56)
[2021-08-07] MEDS: propofoL 1,000 MG in IV 1 EA IV SCH ×5 (04:23→17:46)
[2021-08-07 05:01] LABS: ABG BASE EXCESS 21.2 (-2.0-2.0); ABG HCO3 48.7 MEQ/L (22.0-26.0); ABG O2 SATURATION 95.5 % (95.0-99.0); ABG PARTIAL PRESSURE O2 79.6 mmHg (75.0-100.0); ABG STANDARD HCO3 45.2 MEQ/L (22.0-26.0); ABG TOTAL CO2 51.2 MEQ/L (22.0-29.0); ABG pH (ARTERIAL) 7.402 UNITS (7.350-7.450)
[2021-08-07 05:02] LABS: ABG PARTIAL PRESSURE CO2 80.1 mmHg (35.0-45.0)
[2021-08-07] MEDS: FUROSEMIDE injection 250 MG in D5W 225 ML IV SCH (05:20)
[2021-08-07 05:31] LABS: HEMATOCRIT 26.3 % (42.0-52.0); HEMOGLOBIN 7.5 g/dl (13.5-17.5); MEAN CORPUSCULAR HEMOGLOBIN 32.6 pg (27.0-33.0); MEAN CORPUSCULAR HGB CONC 28.5 g/dl (32.0-36.5); PLATELET COUNT, AUTOMATED 139 10^3/uL (150-450); WHITE BLOOD COUNT 19.7 10^3/uL (4.0-10.0)
[2021-08-07 05:36] LABS: MEAN CORPUSCULAR VOLUME 114.3 fl (80.0-96.0)
[2021-08-07 06:17] LABS: ALBUMIN 2.9 GM/DL (3.2-5.2); ALT/SGPT 63 U/L (12-78); BILIRUBIN,TOTAL 0.9 MG/DL (0.2-1.0); BLOOD UREA NITROGEN 75 MG/DL (7-18); CALCIUM LEVEL 8.3 MG/DL (8.5-10.1); CARBON DIOXIDE LEVEL 50 MEQ/L (21-32); CHLORIDE LEVEL 101 MEQ/L (98-107); CREATININE FOR GFR 0.85 MG/DL (0.70-1.30); GLOMERULAR FILTRATION RATE > 60.0 (>60); GLUCOSE, FASTING 118 MG/DL (70-100); MAGNESIUM LEVEL 2.4 MG/DL (1.8-2.4); SODIUM LEVEL 149 MEQ/L (136-145); TOTAL PROTEIN 5.7 GM/DL (6.4-8.2); TRIGLYCERIDES LEVEL 413 MG/DL (<150)
[2021-08-07] MEDS: SODIUM CHLORIDE 0.9% INJ 10 ML SYR IV SCH ×2 (06:21→18:00)
--- NOTE | 2021-08-07 07:53 | ECGEPIP ---
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
[2021-08-07] MEDS: CHLORHEXIDINE GLUCONATE 0.12 % 15ML UDC (PERIDEX ORAL RINSE) MT SCH ×2 (08:04→20:35)
[2021-08-07] MEDS: PANTOPRAZOLE 40MG VIAL (C9113 PER 1) IV SCH (08:04)
[2021-08-07] MEDS: dexameTHASONE 20MG/5ML VIAL (J1100 PER 1MG) IV SCH (08:04)
--- NOTE | 2021-08-07 08:04 | ECGEPIP ---
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
--- NOTE | 2021-08-07 08:25 | REP ---
INDICATION: intubation, COMPARISON: 08/06/2021 TECHNIQUE: Portable AP view of the chest FINDINGS: Lines and tubes are in stable satisfactory position. Mediastinum and cardiac silhouette are stable. Bilateral and predominately lower lobe opacities are similar to prior examination. No obvious pneumothorax identified. No obvious new acute process appreciated. IMPRESSION: No significant change from prior examination. <Electronically signed by Raz Diaz > 08/07/21 [id number]
[2021-08-07] MEDS: ENOXAPARIN 40MG/0.4ML SYRINGE (J1650 PER 10MG) SC SCH ×2 (09:28→22:37)
--- NOTE | 2021-08-07 10:00 | IPNPDOC ---
Text Note Date of Service The patient was seen on 08/07/21. NOTE CRITICAL CARE PROGRESS NOTE: SUBJECTIVE: Patient seen and examined at bedside. There were no overnight events. Patient is afebrile. He remains on mechanical ventilation. He has negative fluid balance and he has good urine output. He is on the following drips: Versed 6, propofol 35, fentanyl 3, Lasix 50 mg an hour, insulin drip, levo 9. He is tolerating tube feeds and they are at goal. He is having bowel movements. All other ROS are negative except as mentioned above PHYSICAL EXAMINATION: VITAL SIGNS: Please see below. GENERAL APPEARANCE: In extremis on mechanical ventilation HEENT: ET tube intact. No thyromegaly, trachea midline, PERRLA. normal mucous membranes RESPIRATORY: CTA B/L, good air entry. Chest tubes are present bilaterally and there is no air leak noted. CARDIOVASCULAR: +s1 s2, no murmurs. ABDOMEN: nontender, not distended, +BS EXTREMITIES: Anasarca. palpable distal pulses SKIN: Skin breakdown buttock with slow oozing of blood. NEUROLOGICAL: Sedated PERTINENT LABS/IMAGING: Chest x-ray from today shows unchanged bilateral opacities. Chest tubes in place and there is no pneumothorax. ET tube, OG, TLC are okay. IMPRESSION: The most urgent problems requiring my immediate attention at bedside are: 1. ARDS/COVID pneumonia. 2. Profound hypoxemic and hypercapnic respiratory failure on the basis of the above. 3. COVID-19. 4. Unvaccinated state. 6. DNR status. 7. Hyperglycemia. 8. Septic shock 9. Bilateral pneumothorax status post chest tube 10. Morbid obesity 11. Gram-negative felicia bacteremiastenotrophomonas likely secondary bacterial pneumonia. Repeat blood cultures are negative. 12. 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 Continue to taper off propofol, can continue Versed and fentanyl and maintain Madhavi score 4. PULM: HOB 30 degrees. Maintain Sp02 88 to 96%. Titrate down oxygen as tolerated. Unable to prone given his morbid obesity and the presence of bilateral chest tubes. Keep chest tubes to suction as there is intermittent air leak. ABG pH 7.4 CO2 80 O2 79 on 34/360/100/20. Plateau is 45. No vent changes today. Continue with LTVV with goal plateau less than 40 and driving pressure less than 15. Can accept higher plateaus in patients that are morbidly obese. Allow for permissive hypercapnia. CARDIO: Maintain MAP of 65. titrate down levo as tolerate. We will try to maintain negative fluid balance. Lasix drip 12 mg/h, Albumin 25g q12 to aid in diuresis GI: OG feeds. GI prophylaxis Monitor triglyceride while on propofol, will try to taper off propofol. Senna RENAL: Free water through OG tube 400 cc every 4 hour. ID: Levaquin day 4 for stenotrophomonas in blood. Repeat cultures negative. Will complete 7 to 10-day course. Monitor QTC. S/p line change. He has new left IJ TLC day. Tejada catheter was changed. Unable to get tracheal aspirate as this would cause derecruitment and further worsen his oxygenation status. He is status post a course of baricitinib and remdesivir. Decadron 6 mg daily is day 17. ENDO: Monitor FS per routine. Goal range 140-180. Insulin drip HEME: Lovenox 40 mg every 12 hours for DVT prophylaxis. Patient had bleeding from the chest tube in mouth while on heparin drip. Lower extremity duplex is negative. Monitor H&H and transfuse for hemoglobin less than 7 LINES/CATHETERS: Left IJ TLC, left radial A-line. Tejada in place. Bilateral chest tubes. CODE STATUS: Patient is DNR. DISPOSITION: Keep in ICU. Grave prognosis, family at bedside made aware that he is not likely to survive this hospitalization. A total of 60 minutes of critical care time spent at bedside, not including procedures. VS,Fishbone, I+O VS, Fishbone, I+O Laboratory Tests 08/06/21 16:00 08/07/21 05:10 Vital Signs Date Time Temp Pulse Resp B/P (MAP) Pulse Ox O2 Delivery O2 Flow Rate FiO2 08/07/21 09:30 109 121/42 93 08/07/21 08:11 34 100 08/07/21 08:00 98.3 Ventilator 08/04/21 13:55 16.0 I&O- Last 24 Hours up to 6 AM 08/07/21 06:00 Intake Total 3801.2 ml Output Total 9680 ml Balance -5878.8 ml HUYEN FLETCHER MD Aug 07, 2021 10:00
[2021-08-07] MEDS: SENNA SYRUP 15 ML UDC XX SCH ×2 (11:25→20:35)
[2021-08-07] MEDS: HumaLOG INSULIN (NovoLOG) PER UNIT SC SCH ×3 (11:36→20:34)
[2021-08-07] MEDS: NOREPINEPHRINE BITARTRATE 8 MG in D5W 492 ML IV SCH (11:40)
[2021-08-07] MEDS: LevoFLOXacin IV 750 MG in IV 1 EA IV SCH (12:00)
[2021-08-07] MEDS: MIDAZOLAM HCL 100 MG in D5W 80 ML IV SCH (12:58)
--- NOTE | 2021-08-07 13:00 | CCN ---
NEPHROLOGY CRITICAL CARE PROGRESS NOTE DATE: 08/07/2021 SUBJECTIVE: Mr. Ho is seen this morning on his bedside in the intensive care unit. He remains on 100% FiO2 on the ventilator. He did respond to increased dose of Lasix with a total of 6185 mL output yesterday out of which 6050 mL was just urine. Today so far he has made almost 5 liters of urine. He still has generalized anasarca. PHYSICAL EXAMINATION: VITAL SIGNS: Temperature 98.3 degrees Fahrenheit, heart rate 120 per minute, respiratory rate 34 per minute, blood pressure 130/46 mmHg, oxygen saturation 88% on 100% FiO2. He remains on Levophed drip. HEAD: Atraumatic. Endotracheal and orogastric tubes are in place. HEART SOUNDS: Tachycardic. LUNGS: Diminished breath sounds and bilateral rhonchi. ABDOMEN: Obese. Bowel sounds are present. EXTREMITIES: Generalized edema on all four limbs. There is no cyanosis or clubbing. NEUROLOGIC: He is unresponsive, as he is sedated on the ventilator. SKIN: He has tattoos all over his body. LABORATORY DATA: Today's labs show WBC count 19.7, hemoglobin 7.6, hematocrit 26.3, platelets 139. Most recent blood gas showed a pH of 7.40, pCO2 of 80, pO2 79.6 and bicarbonate 45. Today's chemistry showed sodium 149, potassium 4.0, CO2 50, BUN 75, creatinine 0.85, glucose 118, calcium 8.3. Total protein 5.7, albumin 2.9. PROBLEMS: 1. Respiratory failure. Mostly, this is related to COVID pneumonia and volume overload. He is responding to diuretic with good urine output; however, his oxygen requirement has not changed. I have discussed with Dr. Agee and recommended to decrease the dose of intravenous (IV) Lasix drip in order to get a negative fluid balance of about 3 liters per day. 2. Hypernatremia. This is related to aggressive diuresis and likely to improve as free water via his gastrostomy tube (G) tube is increased and diuretic dose is cut down. 3. Hyperkalemia. Patient had persistent hyperkalemia, which has also improved with aggressive diuresis and good urine output. 4. Anemia. Patient has developed worsening anemia. I will defer to the intensive care unit attending for consideration of transfusion. 5. Acute kidney injury. His kidney function is improved and BUN and creatinine are coming down while he has massive urine output of 6 liters yesterday. Twenty-six minutes of critical care time spent during which no procedures were performed.
--- NOTE | 2021-08-07 16:36 | REP ---
INDICATION: oet placement. COMPARISON: Today at 6:47 a.m. TECHNIQUE: Portable FINDINGS: The technique utilized in obtaining the radiograph has magnified the cardiac silhouette and accentuated the interstitial markings. The cardiomediastinal silhouette is unchanged. The left-sided internal jugular central venous catheter is unchanged the tip of which is in the superior vena cava. There are bilateral thoracotomy tube status quo. There is a nasogastric tube seen. The distal aspect is unidentifiable secondary to the technique utilized in obtaining the radiograph. The endotracheal tube is unchanged. Diffuse bilateral interstitial and airspace opacities are again noted. These may have increased slightly compared to the prior exam with the technical differences between the examinations are taken into consideration. There is no change in the osseous structures. IMPRESSION: As above. <Electronically signed by Emil Lovelace > 08/07/21 [id number]
[2021-08-08] VITALS (34 sets, daily range): BP systolic 88–158; BP diastolic 33–81
[2021-08-08] MEDS: fentaNYL CITRATE 1,000 MCG in NS 80 ML IV SCH (00:41)
[2021-08-08] MEDS: HumaLOG INSULIN (NovoLOG) PER UNIT SC SCH ×7 (00:41→23:57)
[2021-08-08] MEDS: NOREPINEPHRINE BITARTRATE 8 MG in D5W 492 ML IV SCH (01:00)
[2021-08-08] MEDS: MIDAZOLAM HCL 100 MG in D5W 80 ML IV SCH ×2 (01:00→13:25)
[2021-08-08] MEDS: FUROSEMIDE injection 250 MG in D5W 225 ML IV SCH (01:16)
[2021-08-08 05:13] LABS: ABG HCO3 51.1 MEQ/L (22.0-26.0); ABG O2 SATURATION 90.3 % (95.0-99.0); ABG PARTIAL PRESSURE O2 57.8 mmHg (75.0-100.0); ABG STANDARD HCO3 48.2 MEQ/L (22.0-26.0); ABG TOTAL CO2 53.5 MEQ/L (22.0-29.0); ABG pH (ARTERIAL) 7.435 UNITS (7.350-7.450)
[2021-08-08 05:14] LABS: ABG PARTIAL PRESSURE CO2 77.8 mmHg (35.0-45.0)
[2021-08-08 05:23] LABS: HEMATOCRIT 26.1 % (42.0-52.0); HEMOGLOBIN 7.3 g/dl (13.5-17.5); MEAN CORPUSCULAR HEMOGLOBIN 32.7 pg (27.0-33.0); PLATELET COUNT, AUTOMATED 125 10^3/uL (150-450); RED BLOOD COUNT 2.23 10^6/uL (4.30-6.10)
[2021-08-08] MEDS: propofoL 1,000 MG in IV 1 EA IV SCH ×5 (05:50→21:59)
[2021-08-08 06:11] LABS: ALBUMIN 2.7 GM/DL (3.2-5.2); ALT/SGPT 61 U/L (12-78); BILIRUBIN,TOTAL 0.8 MG/DL (0.2-1.0); BLOOD UREA NITROGEN 70 MG/DL (7-18); CARBON DIOXIDE LEVEL 53 MEQ/L (21-32); CHLORIDE LEVEL 101 MEQ/L (98-107); CREATININE FOR GFR 0.84 MG/DL (0.70-1.30); GLOMERULAR FILTRATION RATE > 60.0 (>60); GLUCOSE, FASTING 115 MG/DL (70-100); MAGNESIUM LEVEL 2.1 MG/DL (1.8-2.4); POTASSIUM SERUM 3.7 MEQ/L (3.5-5.1); SODIUM LEVEL 152 MEQ/L (136-145); TRIGLYCERIDES LEVEL 382 MG/DL (<150)
[2021-08-08] MEDS: SODIUM CHLORIDE 0.9% INJ 10 ML SYR IV SCH ×2 (06:12→18:00)
--- NOTE | 2021-08-08 08:27 | REP ---
INDICATION: intubation, COMPARISON: 08/07/2021 TECHNIQUE: Portable AP view of the chest FINDINGS: Endotracheal tube, nasogastric tube, left IJ line, and bilateral chest tubes are in stable position. Mediastinum and cardiac silhouette are stable. Diffuse bilateral opacities/consolidations again noted and essentially unchanged. No obvious pneumothorax. IMPRESSION: 1. Lines and tubes in satisfactory stable position. 2. Diffuse bilateral opacities unchanged. <Electronically signed by Raz Diaz > 08/08/21 [id number]
[2021-08-08] MEDS: CHLORHEXIDINE GLUCONATE 0.12 % 15ML UDC (PERIDEX ORAL RINSE) MT SCH ×2 (08:30→20:22)
[2021-08-08] MEDS: SENNA SYRUP 15 ML UDC XX SCH ×2 (08:31→20:22)
[2021-08-08] MEDS: dexameTHASONE 20MG/5ML VIAL (J1100 PER 1MG) IV SCH (08:31)
[2021-08-08] MEDS: PANTOPRAZOLE 40MG VIAL (C9113 PER 1) IV SCH (08:31)
--- NOTE | 2021-08-08 09:57 | CCN ---
CRITICAL CARE NOTE DATE: 07/15/2021 START TIME: 824 STOP TIME: 904 SUBJECTIVE: I again attended Augie Ho here in the intensive care unit. The patient has been examined, chart reviewed. I spoke at length with the nurses at the bedside. There have been no acute events overnight. Medication list and drips have been reviewed. He remains on Propofol, Fentanyl and Nimbex. Nimbex is in a p.r.n. fashion now. He also receives p.r.n. Versed. T max overnight 98.2, blood pressure 80s to the 140s. He is off of Levophed. Heart rate generally in the 80s to occasionally low 100s. Respiratory rate 30-35. Pulse oximetry varies from 84 to 95%. He remains on a Lasix drip at 10 mg an hour and Is and Os 2963 mL in with 8070 mL out midnight to midnight. Other laboratory showed a sodium of 152, potassium 3.7, chloride 101, CO2 53, BUN 70, creatinine 0.84, glucose of 115, albumin 2.7. White blood cell count 13.0, hemoglobin 7.3, platelet count 125,000 on differential today. Most recent blood gas done on assist control of 34, tidal volume 360, PEEP of 20, FiO2 of 100%. He has a pH of 7.435, pCO2 of 77.8, PaO2 of 57.8 with a saturation 90.3%. Chest x-ray shows no acute findings. Possibly less interstitial markings than yesterday. The remainder of his medication list has been reviewed. He remains on Levaquin for Stenotrophomonas in his blood. Decadron remains at 6 mg IV daily. He receives p.r.n. coverage with insulin. He is on Lovenox and Protonix. No other new culture data other than some urine had some yeast-like organisms and catheter was replaced. OBJECTIVE: General: On exam, he is intubated, sedated and mechanically ventilated. He is ill-appearing. Vital signs: As outlined above. He remains edematous. HEENT: Pupils do react. Sclerae clear. Trachea is in the midline. Chest: Clear anteriorly. There are some fine dependent crackles and diminished breath sounds at the extreme bases. Cardiac: Distant but regular. Peripheral pulses diminished but palpable. Diffuse edema is unchanged. Abdomen: Morbidly obese. There are active bowel sounds. Extremities: Without cyanosis or clubbing. Nurses report significant breakdown of the buttocks. The most pressing problems requiring my immediate presence at the bedside: 1. Hypoxemic and hypercapnic respiratory failure requiring mechanical ventilatory support. 2. ARDS/COVID pneumonia. 3. COVID-19. 4. Unvaccinated state. 5. DNR status. 6. Sepsis with shock from Stenotrophomonas. 7. Morbid obesity. 8. Anemia without evidence of acute blood loss. 9. Skin breakdown/pressure ulcer/decubitus. 10. Hypernatremia. At this point, he has made some progress regarding his oxygenation status but my fear is that we are nowhere near being optimistic about his chances at this point. My concern is that he will likely need tracheostomy here in the next week or so should he continue to improve. Given his marginal state regarding his oxygen status and the fact that he is still on 20 cm of PEEP poses a significant risk. We will make adjustments in his feeds and free water given his hypernatremia. He has responded nicely to diuresis but I will defer to nephrology at this point in that regard as they are involved in his care. He will remain on Levaquin for his Stenotrophomonas. Given his morbid obesity and his current physiologic state, his decubitus ulcer poses a problem and likely will become an issue regarding infection. We are nowhere near being able to significantly make changes in his ventilator settings. He is tolerating tube feeds and is having bowel movements. He remains on ulcer and DVT prophylaxis. He has completed his course of therapy for his COVID infection. I still have very significant concerns regarding his difficulties with prolonged hypoxemia and what effects that will have from a neurologic standpoint. I had discussed this on multiple occasions with his and sister at the bedside. At this point, we will proceed as outlined above. We have been able to at least wean him from constant paralytics. Peak airway pressures and plateau pressures are acceptable given his level of PEEP and his body habitus. At this point, it is still very highly unlikely that he will survive this hospitalization. DNR status remains in effect with all measures to be instituted up until a cardiac arrest per family wishes. We will proceed as outlined above. He remains quite critically ill. I left the bedside at 0905 hours. A total of 40 minutes of critical care time delivered at the bedside not including procedures.
[2021-08-08] MEDS: ENOXAPARIN 40MG/0.4ML SYRINGE (J1650 PER 10MG) SC SCH ×2 (11:07→21:49)
--- NOTE | 2021-08-08 13:01 | IPN ---
PROGRESS NOTE DATE: 08/08/2021 I attended Mr. Ho in intensive care unit (ICU) this morning. He remains on 100% FiO2 on the ventilator despite aggressive diuresis. This morning he dropped his blood pressure down to 88/56 mmHg. Yesterday he had a urine output of about 8 liters. He is getting free water via nasogastric (NG) tube, and his Lasix drip was cut down yesterday. His temperature is now 96 degrees Fahrenheit, heart rate about 100 per minute, respiratory rate 25 per minute on the ventilator. Most recent blood pressure is 90/60 mmHg and oxygen saturation is 94% still on 100% FiO2. Intake and output records from yesterday show a negative fluid balance of 5106 mL with total intake 2963 and output 8070 mL. His edema is decreasing. He still has orogastric tube and endotracheal tube in place. Heart sounds are tachycardic and lungs with diminished breath sounds. Abdomen obese and nontender. Extremities without any cyanosis or clubbing. Generalized edema is decreasing. Today's labs show WBC count 13.0, hemoglobin 7.3, hematocrit 26.1, platelets 125. Sodium is up to 152, potassium 3.7, CO2 of 53, BUN 70, and creatinine 0.84. calcium level is 9.0 and glucose 115. Total protein 6.0 and albumin 2.7. PROBLEMS: 1. Generalized hypervolemia. Patient has diuresed very well with intravenous Lasix. I recommend to stop the intravenous (IV) Lasix now, as he is in significant negative fluid balance and has developed hypernatremia and metabolic alkalosis. 2. Hypernatremia. This is related to aggressive diuresis. Lasix drip is being stopped, and he will continue to receive free water via his NG tube 400 mL every 6 hours. 3. Generalized edema and hypoalbuminemia. His albumin level is 2.7 today, and his generalized edema is improving. His IV albumin is also being stopped. 4. Acute kidney injury. Kidney function has improved with aggressive diuresis. His creatinine is now leveled off. 5. Respiratory failure. This is related to COVID pneumonia and probably hypervolemia also contributing to it. He is responding to Lasix and has diuresed aggressively. From a renal standpoint, patient is doing very well, and his kidney function has improved. He is responding to diuretics. At this point, there is no indication for continuous renal replacement therapy (CRRT). Nephrology is signing off the case. Please do not hesitate to call me back should you need any further assistance.
[2021-08-08] MEDS: LevoFLOXacin IV 750 MG in IV 1 EA IV SCH (13:14)
--- NOTE | 2021-08-08 15:15 | CR.PDOC ---
General Date of Consultation: Aug 08, 2021 Referring Provider: Davian Byers Primary Care Physician: Lee Ho PA-C Attending Physician: JAVAN MEDLEY MD Consultation REASON FOR CONSULTATION/CHIEF COMPLAINT: Continued medical management HISTORY OF PRESENT ILLNESS: Augie is a 31-year-old male with no known significant past medical history other than morbid obesity who initially presented to the [facility] ED late in the evening on 07/14/2021 due to worsening shortness of breath and hypoxia on home O2 sensor. His story dates back to Wednesday, 07/07 when he developed some mild shortness of breath with a headache. He lives with his and 3 children. He states that his and children all tested positive for the novel coronavirus and thus he took a home test on 07/07 that was positive. Patient and his entire household is unvaccinated against Covid. After testing positive, the patient obtained a home O2 sensor. For the better part of the next few days, his saturations remained relatively stable in the mild upper 90s with an accompanying productive cough of clear sputum. He also did report a slight loss of both taste and smell with nonbloody diarrhea and intermittent nausea without emesis. On 07/13, the patient began to develop more intense dyspnea both at rest and with activity. Monitor at home O2 saturations dropped initially to 80% and then to 70%. It was at this point that the patient was brought to the ED. In the ED he had a low fever (temp 100.4) with initial O2 saturation of 70% on room air. He was hypertensive (189/81), tachycardic (HR 120) and tachypneic (RR 30). Initially, a nonrebreather was applied at 10 L and saturations improved slightly to 89-95%. On the email marketer of 07/15, the patient was switched over to Vapotherm high flow oxygen at 25 L 100% FiO2, with saturations remained in the low to mid 90s. Initial imaging showed no pulmonary embolism or right heart strain, but dilated pulmonary effusion, fatty infiltration of liver with hepatosplenomegaly. Initial labs showed elevated inflammatory markers, no ini tial CBC was obtained, and electrolytes and kidney function were normal. An initial ABG was: pH 7.472/PCO2 34.5/PO2 78/bicarb 26. The patient was subsequently admitted primarily for acute hypoxemic respiratory failure in the setting of Covid pneumonia. The admitting service then consulted the pulmonary team for further evaluation the patient I/S/worsening hypoxia requiring greater oxygen support with Covid pneumonia. Remdesivir, baricitinib or both initiated, as was IV dexamethasone. Despite the triple therapy for Covid, as well as empiric antimicrobials for suspected superimposed community-acquired pneumonia, the patient's status continued to deteriorate as he required more more oxygen support. While the patient was on noninvasive ventilatory support, he developed bilateral pneumothoraxes which required placement of bilateral chest tubes. Ultimately, he required intubation for mechanical ventilation on 07/23. Since this point, the patient has had intermittent episodes of desaturations despite maximum FiO2 of 100%. He completed the course for both baricitinib and remdesivir and continues on daily 6 mg IV dexamethasone. He has been receiving both stress ulcer and DVT prophy laxis in the form of IV Protonix and subcutaneous twice a day Lovenox. Unfortunately, the patient is requiring escalating amounts of PEEP. The patient also was found to have stenotrophomonas bacteremia on two separate 08/01 blood cultures with sensitivity to Levaquin. Repeat blood cultures were negative and patient continues on IV Levaquin at this time. In addition, the patient has grown 100,000 colonies of yeast species in his urine via 08/03 urine culture, and his Tejada catheter was replaced afterwards. Patient also had generalized hypervolemia which necessitated aggressive IV diuresis in the form of furosemide overseen by the nephrology service. The patient had multiple net negative results with improvement in acute renal failure, but unfortunately developed some metabolic alkalosis and hyponatremia. As a result, patient is currently receiving free water via his NG tube and the IV diuretics have stopped. On 08/08/2021, the wire drawing setter service consulted the hospitalist service for continued medical management. ALLERGIES: Please see below. HOME MEDICATIONS: Please see below. 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 Patient is unvaccinated against the novel coronavirus as are his and children; everyone in the home reportedly tested positive for Covid. 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 He had not been working in the 2 weeks prior to his hospital presentation as part of a self quarantine. At the time of pt's admission on 07/15/21, he denied any current or former use of tobacco products. He also had not consumed alcohol in 9 years, and denied any former heavy alcohol use/abuse. He denied any current or former illicit or IV drug use. REVIEW OF SYSTEMS: A 10 point review of systems could not be obtained as the patient was sedated on mechanical ventilatory support. PHYSICAL EXAMINATION: VITAL SIGNS: Please see below. GENERAL APPEARANCE: Morbidly obese white male lying in bed. Intubated, mechanically ventilated and sedated. HEENT: NC, AT. Noninjected sclera. Pupillary reaction to light. There is a body temperature sensor adhesive present in the patient's forehead. Oral cavity: There is an ET tube and OG tube present. Neck: Trachea is midline. RESPIRATORY: Patient is intubated, sedated and mechanically ventilated on volume control with settings of FiO2 100%, PEEP 20. Current respiratory rate is 34 with a tidal volume of 364. Patient's most recent O2 saturation is 87%. There are coarse ventilator breath sounds throughout with decreased air movement and diminished breath sounds at the bases. Due to patient's current state, auscultation occurred only anteriorly and laterally CARDIOVASCULAR: Tachycardic rate, regular rhythm. Heart sounds quite distant and in the setting of ventilatory ambient noise, very difficult to assess with any type of accuracy for significant murmurs or rubs. Chest: Bilateral chest tubes are in place. ABDOMEN: Morbidly obese. Difficult to assess for any hepatosplenomegaly or palpable masses secondary to habitus. Normoactive bowel sounds are present. There is no rigidity appreciated. EXTREMITIES: There is 3+ pitting edema of bilateral lower extremities and bilateral pedal edema. Buttoks: Reports from nursing state that there is significant pressure injuries and skin breakdown of the buttocks. NEUROLOGICAL: Patient is sedated, intubated and mechanically ventilated. Pupils were reactionary to light. Skin: There are multiple tattoos over the body. Lines and tubes: There is an endotracheal tube and orogastric tube present. There are bilateral chest tubes present. There is a Tejada catheter in place as well as a rectal tube and a TLC. LABORATORY DATA: Please see below. ASSESSMENT/PLAN: This is a 31-year-old male with no known significant past medical history other than morbid obesity who originally presented to the [facility] ED on 07/14/2021 with worsening dyspnea both at rest and with activity I/S/O positive home Covid test result and worsening hypoxia on home O2 sensor. He was initially admitted by the hospitalist service for acute hypoxemic respiratory failure requiring significant supplementary oxygen support with consultation of the wire drawing setter/pulmonary service. Unfortunately, due to worsening hypoxia despite maximum high flow Vapotherm and CPAP, the patient required mechanical ventilation on 07/23. He is remained on mechanical ventilation for the past 2+ weeks with very high PEEP and FiO2 levels. He also became significantly hypernatremic as well as suffering from a stenotrophomonas bacteremia and a yeast urinary tract infection. #Acute hypoxemic and hypercapnic respiratory failure requiring mechanical ventilation 2/2 acute respiratory distress syndrome from COVID-19 pneumonia -Initially presented on 07/14 with increasing shortness of breath at both rest and activity, subjective fevers, and pleuritic chest pain -Due to worsening hypoxia, patient was intubated on 07/23/2021; he remains on a very high level of PEEP (20), FiO2 of 100%. He also has a very high respiratory rate on exam today (34). -Most recent ABG on morning of 08/08/2021 showed hypercapnia/signs of chronic retention: ABG 7.45/77.8/57.8/bicarb 53 -With regards to the patient's hypercapnia, options are limited I/S/O ARDS.there is concern for further manipulation of either respiratory rate or tidal volume; patient is already breathing at a rate of 34 breaths/min with a tidal volume of 364. -The patient currently is on both propofol and fentanyl drips. He is receiving as needed Versed. On a positive note, the patient was weaned off of paralytics and only has his Nimbex prn now. -Due to the prolonged hypoxemia, should patient even survive this hosp italization, there are significant concerns for permanent neurologic damage -Patient has been receiving serial chest x-rays, with most recent this morning (08/08) showing possibly fewer interstitial markings versus the 08/07 study. -Of note, patient's code status is DNR #Sepsis likely 2/2 ARDS/Covid pneumonia and stenotrophomonas bacteremia -Patient is tachypneic (respiratory rate 34), with a white count of 13,000 and at least two sources (respiratoryCovid pneumonia, bloodbacteremia) -Additional other possible sources: -Patient had 100,000 yeast colonies present on 08/03 urine culture; per nursing, there are reportedly significant buttock pressure injuries/decubitus ulcers that will likely only worsen due to patient's habitus and sedated immobilized state. -Currently on day 5 of IV Levaquin in the setting of stenotrophomonas bacteremia: Status post empiric antimicrobials since admission on 07/15 -White count remains elevated, but is trended down over the past few days. There is norepinephrine ordered, but patient has not met criteria as he has remained relatively hemodynamically stable over the past few hours. #Hypercapnia, with significant metabolic alkalosis compensation -08/08 AB.45/77.8/57.8/bicarb 53 -As discussed above, options to address hypercapnia and patient's mechanically ventilated state are limited due to arts and the fact he breathing at a high rate with tidal volumes in the mid 300s #Hypernatremia likely 2/2 aggressive diuresis -Sodium of 152 on 08/08; this is up from 149 the day prior -Hyponatremia over the past 24 hours is likely secondary to aggressive diuresis I/S/O hypovolemia -The nephrology service had been following the patient and prior to signing off on 08/08, initiated free water administration via NG tube in the form of 400 cc every 6 hours #Hypervolemia, generalized -Patient received aggressive IV Lasix diuresis and responded relatively well. Nephrology has stopped the IV Lasix as patient has demonstrated significant negative fluid balance, while also developing hypernatremia and metabolic alkalosis. -Currently receiving free water via NG tube q6h for hypernatremia. #Hypoalbuminemia -Albumin 2.7 on 08/08 -IV albumin was stopped by the nephrology service as it was felt that generalized edema has improved clinically based on 08/08 examination. #Macrocytic anemia, worsening -Hgb on 08/08 was 7.3 (this has decreased over the past 72 hours from a value of 9); MCV 117 on 08/08 (this has increased steadily over the past 14 days since intubation) -There are no visible signs of significant bleeding; no coag studies obtained since 08/03; appears patient had been on a heparin drip earlier during admiss ion. -patient is already s/p 9 units of PRBC transfused during this admission, 2 more units have been ordered and are in the process of transfusing #Hypertriglyceridemia, downtrending -Likely 2/2 administration of propofol for prolonged period while intubated -Triglycerides are being trended and are decreasing #Nutrition -In setting of intubation, the patient is receiving tube feeds for sustenance -He is on sliding scale insulin and his hyperglycemia has come down and been stable for the past 48+ hours #Bilateral pneumothorax, S/P chest tube placement -Likely occurred from trauma in the setting of prolonged noninvasive ventilatory support during the initial part of admission -S/p placement of bilateral chest tubes; per review of thoracic surgery documentation, chest tubes should remain in place until pressure support has been removed #Morbid obesity, BMI 53 -This severely complicates the patient's care and significant endemic adipose contributes to inflammation/prolonged inflammatory state -As stated below, suspect there is a high likelihood for MANDY/OHS #High suspicion for undiagnosed obstructive sleep apnea -Due to patient's morbid obesity, there is a high suspicion for sleep apnea/obesity hypoventilation syndrome -Patient has been using CPAP nightly much earlier during the admission and has been on mechanical ventilation since 07/23 #Hyperglycemia, stable -Serum glucose on 08/08 metabolic panel was 115 (this has decreased over the past 48 hours). -Patient remains on sliding scale insulin and hypoglycemic protocol -Patient has been getting dexamethasone since admission so this could be contributing to elevated sugars, as potentially the tube feeds With patient's morbid obesity, there is a high suspicion for diabetes mellitus and an A1c has been added. #Yeast urinary tract infection -08/03/2021 urine culture grew 100,000 yeast colonies -Tejada catheter has been replaced since culture results #COVID-19 infection Patient is unvaccinated against novel coronavirus; he, his , and all 3 children have tested positive at home; patient's initial positive was on 07/07 on home test. -Repeat PCR test on 07/23 again was positive for Covid -Patient has received full remdesivir and baricitinib treatment; continues on dexamethasone -C/W airborne and contact precautions #Hyperkalemia, resolved -Serum potassium 3.7 this morning. Resolution likely result of aggressive IV furosemide diuresis over the previous few days I/S/O hypervolemia. #Fatty Liver -per 07/14/21 CT abd/pel imaging study, pt has findings c/w "severe fatty infiltration of the liver" #DVT prophylaxis: Lovenox twice daily 40 mg subcutaneous #Ulcer prophylaxis: Protonix IV 40 mg daily CODE STATUS: Patient is a DO NOT RESUSCITATE (DNR) Disposition: Extremely guarded prognosis as patient continues to be very critically ill and most likely will not survive this hospitalization. Per wire drawing setter documentation from 08/08, multiple conversations have occurred with the patient's and sister at the bedside and they are aware of pt's grave status. Vital Signs/I&O Vital Signs Date Time Temp Pulse Resp B/P (MAP) Pulse Ox O2 Delivery O2 Flow Rate FiO2 08/08/21 12:00 99.8 104 34 142/71 (70) 80 Ventilator 100 95/49 08/04/21 13:55 16.0 I&O- Last 24 Hours up to 6 AM 08/08/21 06:00 Intake Total 2083.3 ml Output Total 5450 ml Balance -3366.7 ml Laboratory Data Labs 24H Laboratory Tests 2 08/07/21 15:53: Bedside Glucose (Misc Panel) 151H 08/07/21 20:21: Bedside Glucose (Misc Panel) 129H 08/08/21 00:17: Bedside Glucose (Misc Panel) 122H 08/08/21 04:54: Bedside Glucose (Misc Panel) 98 08/08/21 05:00: Nucleated Red Blood Cells % (auto) 2.8H, Blood Gas Bicarbonate Standard 48.2H, Arterial Blood pH 7.435, Arterial Blood Partial Pressure CO2 77.8*H, Arterial Blood Partial Pressure O2 57.8L, Arterial Blood Total CO2 53.5H, Arterial Blood HCO3 51.1H, Arterial Blood Base Excess 24.0H, Arterial Blood Oxygen Saturation 90.3L, Anion Gap , Glomerular Filtration Rate > 60.0, Calcium Level 9.0, Magnesium Level 2.1, Total Bilirubin 0.8, Aspartate Amino Transf (AST/SGOT) 91H, Alanine Aminotransferase (ALT/SGPT) 61, Alkaline Phosphatase 56, Total Protein 6.0L, Albumin 2.7L, Albumin/Globulin Ratio 0.8, Triglycerides Level 382H 08/08/21 11:05: Bedside Glucose (Misc Panel) 132H CBC/BMP Laboratory Tests 08/08/21 05:00 Microbiology Microbiology 08/04/21 Blood Culture - Preliminary, Resulted No Growth after 72 hours. All specime... 08/03/21 Urine Culture - Final, Complete Yeast Like Organism 08/01/21 Blood Culture - Final, Complete Stenotrophomonas Maltophilia 08/01/21 Blood Culture - Final, Complete Stenotrophomonas Maltophilia Allergies Coded Allergies: No Known Allergies (Unverified , 06/09/21) Home Medications No Active Prescriptions or Reported Meds GME ATTESTATION GME ATTESTATION My faculty preceptor for this patient encounter was physically present during the encounter and was fully available. All aspects of the patient interview, examination, medical decision making process, and medical care plan development were reviewed and approved by the faculty preceptor. The faculty preceptor is aware and concurs with the plan as stated in the body of this note and will attest to such by his/her cosignature. ATTENDING NOTE I, Javan Medley MD, have independently examined this patient and performed my own physical exam while the residents and students were with me in the room, as well as reviewed the documentation and edited where necessary. I have discussed in detail with the resident / student the findings and plan of treatment as documented by the resident / student and edited their note. I agree with their findings and treatment plan and have edited their documentation. CALEB APODACA D.O. Aug 08, 2021 15:15 JAVAN MEDLEY MD Aug 14, 2021 15:24
[2021-08-08 16:49] LABS: HEMOGLOBIN A1c 6.3 %
[2021-08-09] VITALS (58 sets, daily range): BP systolic 90–159; BP diastolic 34–68
[2021-08-09] MEDS: MIDAZOLAM HCL 100 MG in D5W 80 ML IV SCH ×2 (01:23→11:52)
[2021-08-09] MEDS: propofoL 1,000 MG in IV 1 EA IV SCH ×8 (02:15→22:38)
[2021-08-09] MEDS: HumaLOG INSULIN (NovoLOG) PER UNIT SC SCH ×5 (03:49→20:09)
[2021-08-09] MEDS: ACETAMINOPHEN TAB 650MG DOSE (2X325MG) PO PRN ×2 (04:05→11:53)
[2021-08-09 05:18] LABS: ABG BASE EXCESS 24.3 (-2.0-2.0); ABG HCO3 51.3 MEQ/L (22.0-26.0); ABG O2 SATURATION 89.7 % (95.0-99.0); ABG STANDARD HCO3 48.6 MEQ/L (22.0-26.0); ABG TOTAL CO2 53.7 MEQ/L (22.0-29.0); ABG pH (ARTERIAL) 7.451 UNITS (7.350-7.450)
[2021-08-09 05:19] LABS: ABG PARTIAL PRESSURE CO2 75.4 mmHg (35.0-45.0)
[2021-08-09 05:23] LABS: HEMATOCRIT 27.3 % (42.0-52.0); HEMOGLOBIN 7.7 g/dl (13.5-17.5); MEAN CORPUSCULAR HEMOGLOBIN 33.2 pg (27.0-33.0); MEAN CORPUSCULAR HGB CONC 28.2 g/dl (32.0-36.5); PLATELET COUNT, AUTOMATED 127 10^3/uL (150-450); RED BLOOD COUNT 2.32 10^6/uL (4.30-6.10); WHITE BLOOD COUNT 13.7 10^3/uL (4.0-10.0)
[2021-08-09 05:34] LABS: MEAN CORPUSCULAR VOLUME 117.7 fl (80.0-96.0)
[2021-08-09] MEDS: SODIUM CHLORIDE 0.9% INJ 10 ML SYR IV SCH (05:50)
[2021-08-09 06:18] LABS: ALBUMIN 2.8 GM/DL (3.2-5.2); ALT/SGPT 64 U/L (12-78); BILIRUBIN,TOTAL 0.8 MG/DL (0.2-1.0); BLOOD UREA NITROGEN 52 MG/DL (7-18); CALCIUM LEVEL 9.7 MG/DL (8.5-10.1); CARBON DIOXIDE LEVEL 54 MEQ/L (21-32); CHLORIDE LEVEL 102 MEQ/L (98-107); CREATININE FOR GFR 0.68 MG/DL (0.70-1.30); GLOMERULAR FILTRATION RATE > 60.0 (>60); GLUCOSE, FASTING 110 MG/DL (70-100); POTASSIUM SERUM 3.8 MEQ/L (3.5-5.1); SODIUM LEVEL 154 MEQ/L (136-145); TOTAL PROTEIN 5.6 GM/DL (6.4-8.2)
[2021-08-09] MEDS: fentaNYL CITRATE 1,000 MCG in NS 80 ML IV SCH (07:39)
[2021-08-09] MEDS: dexameTHASONE 20MG/5ML VIAL (J1100 PER 1MG) IV SCH (08:08)
[2021-08-09] MEDS: CHLORHEXIDINE GLUCONATE 0.12 % 15ML UDC (PERIDEX ORAL RINSE) MT SCH ×2 (08:08→20:09)
[2021-08-09] MEDS: PANTOPRAZOLE 40MG VIAL (C9113 PER 1) IV SCH (08:08)
[2021-08-09] MEDS: SENNA SYRUP 15 ML UDC XX SCH ×2 (08:13→20:15)
--- NOTE | 2021-08-09 08:38 | REP ---
INDICATION: intubation, COMPARISON: 08/08/2021 TECHNIQUE: Portable AP view of the chest FINDINGS: Lines and tubes in stable position. The lung justin demonstrate mildly improved aeration with continued bilateral predominately perihilar and lower lobe opacities. No obvious pneumothorax. No new process appreciated. IMPRESSION: Findings suggest mild improved aeration. <Electronically signed by Raz Diaz > 08/09/21 0837
--- NOTE | 2021-08-09 08:51 | ECGEPIP ---
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
--- NOTE | 2021-08-09 09:06 | ECGEPIP ---
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
[2021-08-09] MEDS: ENOXAPARIN 40MG/0.4ML SYRINGE (J1650 PER 10MG) SC SCH (11:52)
[2021-08-09] MEDS: MICAFUNGIN SODIUM 100 MG in D5W MINI-BAG PLUS 100 ML IV SCH (11:53)
[2021-08-09 11:56] LABS: INR 1.21; PROTHROMBIN TIME 15.7 SECONDS (12.7-14.5)
[2021-08-09 11:59] LABS: D-DIMER QUANT 3776.12 ng/ml (<500)
[2021-08-09] MEDS: LevoFLOXacin IV 750 MG in IV 1 EA IV SCH (13:06)
--- NOTE | 2021-08-09 13:49 | CCN ---
CRITICAL CARE NOTE DATE: 08/09/2021 Patient was seen and examined this morning during bedside rounds. Overnight patient continued to be febrile with a maximum temperature (T-max) of 101.9 and a current temperature of 100.7. He was given Tylenol for his fever this morning. Patient otherwise continues to have severe hypoxia despite being on maximal ventilator settings with high positive end-expiratory pressure (PEEP) and 100% FiO2. He continues to have significant episodes of desaturation with minimal positioning changes with desaturations down into the 50s at times with very slow and prolonged recovery. Patient continues to be severely hypercapnic. He was on intravenous (IV) Lasix previously, which was discontinued yesterday. He is getting free water flushed via his nasogastric (NG) tube still. Patient was also previously given albumin infusions with the last dose earlier this morning. PHYSICAL EXAMINATION: VITAL SIGNS: Maximum temperature (T-max) 101.9, current temperature 100.7, pulse 109, respirations 38, blood pressure 124/41, oxygen saturation 77%-80% on 100% FiO2. Ins 4.4 liters, out 4.4 liters. GENERAL: Patient a morbidly obese male, intubated and on mechanical ventilation and on sedation. Patient is minimally responsive to painful stimuli. He does not have a gag reflux with oral suctioning but has a slight cough with tracheal suctioning. HEENT: Normocephalic, atraumatic. There is a scabbed lesion on his nose. Pupils are slugging. Neck is thick. There is a left internal jugular (IJ) triple-lumen in place. There is an endotracheal (ET) tube and an orogastric (OG) tube in place. CARDIAC: Is tachycardic. Regular rate and rhythm. Somewhat distant heart sounds noted with no appreciable murmurs. RESPIRATORY: Coarse ventilator breath sounds bilaterally with diminished breath sounds at the bases. Patient has bilateral chest tubes in place. There does not appear to be any appreciable air leak noted from the bilateral chest tubes. ABDOMEN: Morbidly obese. Unable to evaluate for any hepatosplenomegaly or probable masses secondary to body habitus. Bowel sounds are present. There is some ecchymosis and bruising in his abdomen from injection. EXTREMITIES: Pitting edema +2-3 in the bilateral lower extremities and pitting edema in the upper extremities. There is report from nursing of sacral decubitus ulcer. LABORATORY DATA: WBC is 13.7, hemoglobin 7.7, platelets 127. Chemistry: Sodium 154, potassium 3.8, chloride 102, bicarbonate 54, BUN 52, creatinine 0.68, glucose 110. AST is 94, ALT is 64, alkaline phosphatase is 51, albumin is 2.8. ABG: A pH 7.451, pCO2 of 75.4, pO2 of 60. IMAGING: Chest x-ray this morning shows low lung volumes with bilateral chest tube noted in place. No significant hemothorax noted. There is ET tube and an OG tube in place. There is left IJ triple-lumen in place. There are primarily lower lobe opacities and some perihilar opacities with questionable mild improvement. ASSESSMENT AND PLAN: Mr. Ho is a 31-year-old male with a past medical history of morbid obesity, who presented with acute hypoxemic respiratory failure in the setting of COVID-19 pneumonia and acute respiratory distress syndrome (ARDS). Patient had initially been on noninvasive positive pressure ventilation with development of bilateral pneumothoraces status post bilateral chest tubes. He then required intubation and mechanical ventilation starting on July 23. Patient continues to have profound hypoxemic and severe hypercapnic respiratory failure. Overnight the patient also was febrile despite being on antibiotics. Neurologic: Patient is intubated on mechanical ventilation and is on sedation. - He is on Versed drip and propofol for sedation with a fentanyl drip for analgesia. - Patient is off office visit paralytics now except for as-needed paralytics as needed for severe ventilator dyssynchrony. - Given his severe hypoxemic and hypercapnic respiratory failure on maximum ventilator settings, he is not a candidate for weaning sedation or sedation vacation. There is also concern still, given his prolonged periods of hypoxemia, if there is a possibility of some anoxic injury, which we have discussed with patient's family. Cardiac: Patient did have septic shock previously and was on vasopressors. He has been weaned off of pressors and has maintained his blood pressure - Patient is tachycardic, likely in the setting of his fever and severe hypoxia. We will continue monitoring his blood pressure. He does have an arterial (A) line in place still, which we will likely need to remove next week if he continues to maintain his blood pressure off of pressors. - We did discuss with the patient's and sister about the possibility of not escalating his treatment, in particular, if he were to have shock again in terms of not initiating any vasopressors. He is currently a DO NOT RESUSCITATE, and she will consider the possibility of not adding pressors given his extremely poor prognosis however would still want to continue with aggressive measures currently. - Patient did have some EKG changes noted this morning with new incomplete right bundle branch block. Suspect some of these EKG changes are in the setting of demand ischemia given his severe hypoxia as well as now with his worsening anemia. Will continue to monitor and check troponin if further changes Pulmonary: Severe hypoxemic and hypercarbic respiratory failure in the setting of COVID-19 pneumonia and ARDS. Patient continues to have significant hypercarbia as well as significantly elevated peak pressures. He likely is in the fibrotic stage of his ARDS now. - Patient is on maximal ventilator settings with a PEEP of 20 and 100% FiO2. He is still profoundly hypoxemic and this morning appears to have some more desaturation from previous. He is unable to tolerate significant position changes given his hypoxia and with significant desaturation when changing his position. We are unable to increase his PEEP given his elevated plateau pressures. He does have a previous history of bilateral pneumothoraces and does still have bilateral chest tubes in place. His current chest x-ray does not show any significant pneumothorax, and there is no air leak noted in his PneumoVac. - Patient had previously been assessed for possibility of transfer and extracorporeal membrane oxygen (ECMO). Patient was not a candidate ECMO given his instability and inability to be transferred safely. There was also no accepting facilities initially. As he has been intubated now for more than 2 weeks, we discussed with the family again that he is not a candidate for ECMO or for transfer. - We also discussed with the patient's family, given his ventilator requirements, that he is not a candidate for tracheostomy tube placement, particularly given the high amount of PEEP and FiO2. We did discuss therefore that with his prolonged intubation he is at risk for complications now with the endotracheal tube, including laryngotracheal stenosis and tracheomalacia. - Patient will be continued on maximal ventilator settings with low tidal volume ventilation given his ARDS. He is on high respiratory rate already, and so we are unable to increase his respiratory rate despite his continued hypercapnia due to concern for worsening autoPEEP. - We will continue with daily arterial blood gases (ABGs) and chest x-rays while intubated. - We will continue patient on antibiotics. He on Levaquin currently given Stenotrophomonas bacteremia. He did also have yeast, and given his decubitus ulcer as well as his ongoing steroid use and previous medications for his COVID-19 pneumonia, which include baricitinib, he is at risk for fungal infections. He will start him on micafungin given his continued fevers. I suspect some of this due to worsening sacral decubitus ulcer that will likely not improve given his morbid obesity and his sedated immobilized state. - Will continue with dexamethasone intravenous (IV), will need slow weaning. Gastrointestinal (GI): Patient has OG tube feeds, which he has been tolerating. He is on free water flushes as well given hypernatremia. He will continue to monitor his tube feeds for residuals. - Continue with proton pump inhibitor (PPI)for prophylaxis. Renal/endocrine: Patient has evidence of generalized edema and third spacing. He was initially given aggressive IV diuresis and did have some improvement in his edema, however, was noted to have worsening hypernatremia. He does have respiratory acidosis with a compensatory metabolic alkalosis. - Patient's Lasix is on hold. He is getting free water flushes. Will attempt to change his other medications to D5 where possible instead of normal saline. Will increase free water flushes and adjust tube feeds for lower sodium - Patient was also receiving albumin for his hypoalbuminemia and generalized edema. He last received a dose this morning. Will hold his albumin for now and start on beneprotein in tube feeds. - Patient is on sliding-scale coverage and fingersticks glucose checks for hypoglycemia. - Continue monitoring electrolytes and replete as needed. Hematology: Patient was initially on anticoagulation with heparin drip. He was then changed to Lovenox now for prophylaxis with dosing for obese patients, which he has been tolerating. He does have anemia, which has been worsening but does not appear to have active bleeding. Will check d-dimer - Will get a type and screen and transfuse patient 1 unit packed red blood cells (PRBC) and continue to transfuse as needed to maintain hemoglobin above 7 or goal hemoglobin higher if evidence of worsening demand ischemia - Continue with Lovenox 40 mg IV twice a day for now Code status is DO NOT RESUSCITATE. Had a family meeting with patient's and sister today. We discussed again his extremely poor prognosis and his high likelihood that he will not survive his current hospitalization. We did discuss with the patient's about the possibility of not excalating care, i.e, not starting vasopressors if he develops shock again and not starting dialysis if he does have renal failure and continuing with just current management. We did discuss, as previously stated, our anticipation for continued complications given his prolonged ventilation and with no improvement in his profound hypoxemia and hypercapnia with suspect fibrotic stage of his ARDS now. We also discussed with the patient's and sister the possibility of comfort measures only, which they would like to discuss further with the family. At this time their wishes are for continuing with full measures. Will continue to address with family Total critical care time spent, not including any procedures: Approximately 1 hour and 40 minutes. VIRGIL
[2021-08-09] MEDS ORDERED: NOREPINEPHRINE BITARTRATE 16 MG in D5W 484 ML IV SCH (15:30)
[2021-08-09] MEDS: ASPIRIN 81 MG CHEW TABLET GT SCH (17:21)
[2021-08-09] MEDS: ENOXAPARIN 120MG/0.8ML SYRINGE (J1650 PER 10MG) SC SCH (22:05)
[2021-08-10] VITALS (31 sets, daily range): BP systolic 51–179; BP diastolic 35–65
[2021-08-10] MEDS: HumaLOG INSULIN (NovoLOG) PER UNIT SC SCH ×3 (00:06→08:00)
[2021-08-10] MEDS: MIDAZOLAM HCL 100 MG in D5W 80 ML IV SCH (00:36)
[2021-08-10] MEDS: propofoL 1,000 MG in IV 1 EA IV SCH ×5 (00:38→09:09)
[2021-08-10] MEDS: fentaNYL CITRATE 1,000 MCG in NS 80 ML IV SCH ×2 (04:09→07:23)
[2021-08-10 04:54] LABS: ABG BASE EXCESS 21.7 (-2.0-2.0); ABG HCO3 49.7 MEQ/L (22.0-26.0); ABG O2 SATURATION 85.3 % (95.0-99.0); ABG PARTIAL PRESSURE O2 51.9 mmHg (75.0-100.0); ABG STANDARD HCO3 45.7 MEQ/L (22.0-26.0); ABG TOTAL CO2 52.1 MEQ/L (22.0-29.0); ABG pH (ARTERIAL) 7.412 UNITS (7.350-7.450)
[2021-08-10 04:58] LABS: HEMOGLOBIN 8.9 g/dl (13.5-17.5); MEAN CORPUSCULAR HEMOGLOBIN 33.5 pg (27.0-33.0); MEAN CORPUSCULAR HGB CONC 29.7 g/dl (32.0-36.5); MEAN CORPUSCULAR VOLUME 112.8 fl (80.0-96.0); PLATELET COUNT, AUTOMATED 126 10^3/uL (150-450); RED BLOOD COUNT 2.66 10^6/uL (4.30-6.10); WHITE BLOOD COUNT 9.2 10^3/uL (4.0-10.0)
[2021-08-10 04:59] LABS: ABG PARTIAL PRESSURE CO2 79.8 mmHg (35.0-45.0)
[2021-08-10 06:27] LABS: ALBUMIN 2.7 GM/DL (3.2-5.2); ALT/SGPT 63 U/L (12-78); BLOOD UREA NITROGEN 35 MG/DL (7-18); CALCIUM LEVEL 8.7 MG/DL (8.5-10.1); CARBON DIOXIDE LEVEL 51 MEQ/L (21-32); CHLORIDE LEVEL 98 MEQ/L (98-107); GLOMERULAR FILTRATION RATE > 60.0 (>60); GLUCOSE, FASTING 122 MG/DL (70-100); POTASSIUM SERUM 3.7 MEQ/L (3.5-5.1); SODIUM LEVEL 148 MEQ/L (136-145); TOTAL PROTEIN 5.4 GM/DL (6.4-8.2)
--- NOTE | 2021-08-10 08:06 | REPVR ---
PROCEDURE INFORMATION: Exam: XR Chest Exam date and time: 08/10/2021 7:13 AM Age: 31 years old Clinical indication: Other: Intubation, TECHNIQUE: Imaging protocol: XR of the chest. Views: 1 view. COMPARISON: CR Chest, 1 view 08/09/2021 6:51 AM (report not provided) FINDINGS: Tubes, catheters and devices: Support devices appear stable. Lungs: There are similar hazy and interstitial opacities bilaterally, suggesting edema and/or pneumonitis, with mild patchy airspace opacities toward the bases. Pleural spaces: Unremarkable. No pleural effusion. No pneumothorax. Heart/Mediastinum: The cardiomediastinal silhouette is stable in appearance allowing for differences in positioning. Bones/joints: Unremarkable. IMPRESSION: Stable radiographic appearance of the chest since one day prior. Electronically signed by: Jean-Pierre Elizondo On 08/10/2021 08:06:18 AM
[2021-08-10] MEDS: CHLORHEXIDINE GLUCONATE 0.12 % 15ML UDC (PERIDEX ORAL RINSE) MT SCH (08:20)
[2021-08-10] MEDS: dexameTHASONE 20MG/5ML VIAL (J1100 PER 1MG) IV SCH (08:20)
[2021-08-10] MEDS: ASPIRIN 81 MG CHEW TABLET GT SCH (08:20)
[2021-08-10] MEDS: PANTOPRAZOLE 40MG VIAL (C9113 PER 1) IV SCH (08:20)
[2021-08-10] MEDS: SENNA SYRUP 15 ML UDC XX SCH (08:28)
[2021-08-10] MEDS: ENOXAPARIN 120MG/0.8ML SYRINGE (J1650 PER 10MG) SC SCH (09:09)
--- NOTE | 2021-08-10 09:50 | ECGEPIP ---
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
[2021-08-10] MEDS: MICAFUNGIN SODIUM 100 MG in D5W MINI-BAG PLUS 100 ML IV SCH (12:00)
[2021-08-10] MEDS ORDERED: HumaLOG INSULIN (NovoLOG) PER UNIT SC SCH (12:00)
[2021-08-10] MEDS: LevoFLOXacin IV 750 MG in IV 1 EA IV SCH (12:12)
--- NOTE | 2021-08-10 13:11 | DS.PDOC ---
Discharge Summary General Date of Admission Jul 15, 2021 at 09:35 Date of Discharge 08/10/21 Discharge Summary PROCEDURES PERFORMED DURING STAY: Central line placement, arterial line placement, endotracheal tube, bilateral chest tube placement ADMITTING DIAGNOSES: 1. Acute hypoxemic respiratory failure, ARDS 2. COVID-19 PNA 3. Bacterial PNA DISCHARGE DIAGNOSES: 1. Refractory Hypoxemic and hypercarbic respiratory failure 2. ARDS 2/2 COVID-19 3. Bacterial and fungal infection 4. OTONIEL 5. Bilateral pneumothorax s/p chest tubes 6. Sacral decubitus ulcer 7. Demand ischemia 8. Shock 9. Encephalopathy COMPLICATIONS/CHIEF COMPLAINT: COVID. HISTORY OF PRESENT ILLNESS: sally is a 31-year-old male with no known significant past medical history other than morbid obesity who initially presented to the [facility] ED late in the evening on 07/14/2021 due to worsening shortness of breath and hypoxia on home O2 sensor. His story dates back to Wednesday, 07/07 when he developed some mild shortness of breath with a headache. He lives with his and 3 children. He states that his and children all tested positive for the novel coronavirus and thus he took a home test on 07/07 that was positive. Patient and his entire household is unvaccinated against Covid. After testing positive, the patient obtained a home O2 sensor. For the better part of the next few days, his saturations remained relatively stable in the mild upper 90s with an accompanying productive cough of clear sputum. He also did report a slight loss of both taste and smell with nonbloody diarrhea and intermittent nausea without emesis. On 07/13, the patient began to develop more intense dyspnea both at rest and with activity. Monitor at home O2 saturations dropped initially to 80% and then to 70%. It was at this point that the patient was brought to the ED. In the ED he had a low fever (temp 100.4) with initial O2 saturation of 70% on room air. He was hypertensive (189/81), tachycardic (HR 120) and tachypneic (RR 30). Initially, a nonrebreather was applied at 10 L and saturations improved slightly to 89-95%. On the service order dispatcher of 07/15, the patient was switched over to Vapotherm high flow oxygen at 25 L 100% FiO2, with saturations remained in the low to mid 90s. Initial imaging showed no pulmonary embolism or right heart strain, but dilated pulmonary artery and diffuse patchy opacities bilaterally as well as fatty infiltration of liver with hepatosplenomegaly. Initial labs showed elevated inflammatory markers, no initial CBC was obtained, and electrolytes and kidney function were normal. An initial ABG was: pH 7.472/PCO2 34.5/PO2 78/bicarb 26. The patient was subsequently admitted primarily for acute hypoxemic respiratory failure in the setting of Covid pneumonia. The admitting service then consulted the pulmonary team for further evaluation the patient I/S/worsening hypoxia requiring greater oxygen support with Covid pneumonia. HOSPITAL COURSE: Remdesivir, baricitinib was both initiated, as was IV dexamethasone. Despite the triple therapy for Covid, as well as empiric antimicrobials for suspected superimposed community-acquired pneumonia, the patient's status continued to deteriorate as he required more more oxygen support. While the patient was on noninvasive ventilatory support, he developed bilateral pneumothoraxes which required placement of bilateral chest tubes by CT surgery. Ultimately, he required intubation for mechanical ventilation on 07/23 for ARDS in setting of COVID-19 Since this point, the patient has had intermittent episodes of desaturations despite maximum FiO2 of 100% and high PEEP with refractory hypoxia. He completed the course for both baricitinib and remdesivir and continues on daily 6 mg IV dexamethasone. He was also on paralytic initially given his severe ARDS and attempts were made at proning which he was unable to tolerate given his hypoxia and severe morbid obesity. He was also too unstable initially for transfer and there were no initial accepting ECMO facilities. He was initially on full dose anticoagulation given his severe hypoxia and in flammatory state. He was then changed to intermediate dose prophylaxis with lovenos. He has been receiving both stress ulcer prophylaxis in the form of IV Protonix. The patient also was found to have stenotrophomonas bacteremia on two separate 08/01 blood cultures with sensitivity to Levaquin. Repeat blood cultures were negative and patient continues on IV Levaquin at this time. In addition, the patient has grown 100,000 colonies of yeast species in his urine via 08/03 urine culture, and his Tejada catheter was replaced afterwards. Patient also had generalized hypervolemia which necessitated aggressive IV diuresis in the form of furosemide overseen by the nephrology service. The patient had multiple net negative results with improvement in acute renal failure, but unfortunately developed some metabolic alkalosis and hypernatremia. As a result, patient was receiving free water via his NG tube and the IV diuretics were stopped.Patient was also noted to have fevers again and antibioti cs were restarted. He had previously completed a course of antibiotics for bacterial PNA. Given risk of fungal infection and worsening decubitus ulcer patient was started on antifungal medication. He has difficulty with positioning as he has significant desaturation with minimal position adjustments. He was also receiving albumin given his third spacing and hypoalbuminemia and also received 1 unit PRBC on 08/09 for anemia. Patient continued to have refractory hypoxia despite high PEEP and 100% FiO2 as well as worsening hypercapnia with significantly elevated plateau pressures on the ventilator despite low tidal volume ventilation and RR 34-37. He likely had worsening fibrotic ARDS given the increasing difficulty with ventilation. Patient's family was updated yesterday as to his extremely poor prognosis. Yesterday he was noted to become hypotensive requiring initiation of vasopressors. He also had new changes on EKG and increased troponin with suspected demand ischemia. His prior echocardiograms had been nondiagnostic given poor windows due to his obesity and body habitus. He was increased to full dose lovenox and started on aspirin. Today patient was noted to have worsening hypoxia with O2 sats on the ventilor into the 30's. With ambubag with PEEP valve ventilation his O2 sats only improved to the 60's and we were unable to maintain his oxygenation on the ventilator despite further adjustments. Patient's and sister were contacted as to the change in his status and were at the bedside. He was reaffirmed as a DNR status and with his worsening respiratory staus the decision was made to discontinue pressors given medical futility with the inability to improve his oxygenation. Patient was continued on the ventilator however subsequently had cardiac arrest and TOD was 1240. Family was aware and at bedside. DISCHARGE MEDICATIONS: Please see below. ALLERGIES: Please see below. PHYSICAL EXAMINATION ON DISCHARGE: VITAL SIGNS: Please see below. GENERAL: Patient a morbidly obese male, intubated and on mechanical ventilation and on sedation. Patient is minimally responsive to painful stimuli. He does not have a gag reflux with oral suctioning but has a slight cough with tracheal suctioning. HEENT: Normocephalic, atraumatic. There is a scabbed lesion on his nose. Pupils are slugging. Neck is thick. There is a left internal jugular (IJ) triple-lumen in place. There is an endotracheal (ET) tube and an orogastric (OG) tube in place. CARDIAC: Is tachycardic. Regular rate and rhythm. Somewhat distant heart sounds noted with no appreciable murmurs. RESPIRATORY: Coarse ventilator breath sounds bilaterally with diminished breath sounds at the bases. Patient has bilateral chest tubes in place. There does not appear to be any appreciable air leak noted from the bilateral chest tubes. ABDOMEN: Morbidly obese. Unable to evaluate for any hepatosplenomegaly or probable masses secondary to body habitus. Bowel sounds are present. There is some ecchymosis and bruising in his abdomen from injection. EXTREMITIES: Pitting edema +2-3 in the bilateral lower extremities and pitting edema in the upper extremities. There is report from nursing of sacral decubitus ulcer. LABORATORY DATA: Please see below. IMAGING: Chest x-ray this morning shows low lung volumes with bilateral chest tube noted in place. No significant hemothorax noted. There is ET tube and an OG tube in place. There is left IJ triple-lumen in place. There are primarily lower lobe opacities and some perihilar opacities unchanged. PROGNOSIS: DISPOSITION: DISCHARGE INSTRUCTIONS: 1. None DISCHARGE CONDITION: TIME SPENT ON DISCHARGE: 35 minutes. Vital Signs/I&Os Vital Signs Date Time Temp Pulse Resp B/P (MAP) Pulse Ox O2 Delivery O2 Flow Rate FiO2 08/10/21 10:00 100 08/10/21 07:35 77 34 79 08/10/21 06:00 99.0 140/40 (67) Ventilator 98/46 08/04/21 13:55 16.0 I&O- Last 24 Hours up to 6 AM 08/10/21 06:00 Intake Total 6397.1 ml Output Total 3240 ml Balance 3157.1 ml Laboratory Data Labs 24H Laboratory Tests 2 08/09/21 11:46: Bedside Glucose (Misc Panel) 136H 08/09/21 15:56: Bedside Glucose (Misc Panel) 133H 08/09/21 17:10: Troponin I High Sensitivity 676.0*H 08/09/21 20:05: Bedside Glucose (Misc Panel) 124H 08/10/21 00:04: Bedside Glucose (Misc Panel) 121H 08/10/21 03:42: Bedside Glucose (Misc Panel) 115H 08/10/21 04:40: Nucleated Red Blood Cells % (auto) 1.9H, Activated Partial Thromboplast Time 32.7, Blood Gas Bicarbonate Standard 45.7H, Arterial Blood pH 7.412, Arterial Blood Partial Pressure CO2 79.8*H, Arterial Blood Partial Pressure O2 51.9L, Arterial Blood Total CO2 52.1H, Arterial Blood HCO3 49.7H, Arterial Blood Base Excess 21.7H, Arterial Blood Oxygen Saturation 85.3L, Anion Gap , Glomerular Filtration Rate > 60.0, Calcium Level 8.7, Total Bilirubin 1.0, Aspartate Amino Transf (AST/SGOT) 89H, Alanine Aminotransferase (ALT/SGPT) 63, Alkaline Ph osphatase 44L, Troponin I High Sensitivity 682.0*H, Total Protein 5.4L, Albumin 2.7L, Albumin/Globulin Ratio 1.0, Triglycerides Level 474H CBC/BMP Laboratory Tests 08/10/21 04:40 FSBS Laboratory Tests Test 08/09/21 11:46 08/09/21 15:56 08/09/21 20:05 08/10/21 00:04 Range/Units Bedside Glucose (Misc Panel) 136 133 124 121 70-105 MG/DL Test 08/10/21 03:42 Range/Units Bedside Glucose (Misc Panel) 115 70-105 MG/DL Microbiology Microbiology 08/04/21 Blood Culture - Final, Complete NO GROWTH AFTER 5 DAYS 08/03/21 Urine Culture - Final, Complete Yeast Like Organism 08/01/21 Blood Culture - Final, Complete Stenotrophomonas Maltophilia 08/01/21 Blood Culture - Final, Complete Stenotrophomonas Maltophilia Discharge Medications No Active Prescriptions or Reported Meds Allergies Coded Allergies: No Known Allergies (Unverified , 06/09/21) RASHAAD KO MD Aug 10, 2021 11:54
[2021-08-10 16:01] LABS: RSV AMPLIFICATION NEGATIVE (NEGATIVE)
== END 2021-08-10 12:40 | disposition expired | DRG 130 ==
LOC: M ED 23:07 → M ED INP 07-15 09:35 → M ICU 07-15 13:58
PROVIDERS: ADMIT Internal Medicine; ATTEND Internal Medicine Pulmonary Disease
PROC: 3E0333Z Introduction of Anti-inflammatory into Peripheral Vein, Percutaneous Approach (ICD-10-PCS; 2021-07-15)
PROC: XW033E5 Introduction of Remdesivir Anti-infective into Peripheral Vein, Percutaneous Approach, New Technology Group 5 (ICD-10-PCS; 2021-07-15)
PROC: 02HV33Z Insertion of Infusion Device into Superior Vena Cava, Percutaneous Approach (ICD-10-PCS; principal; 2021-07-18 15:00)
PROC: 5A09557 Assistance with Respiratory Ventilation, Greater than 96 Consecutive Hours, Continuous Positive Airway Pressure (ICD-10-PCS; 2021-07-20)
PROC: 0W9B30Z Drainage of Left Pleural Cavity with Drainage Device, Percutaneous Approach (ICD-10-PCS; 2021-07-21)
PROC: 0BH17EZ Insertion of Endotracheal Airway into Trachea, Via Natural or Artificial Opening (ICD-10-PCS; 2021-07-23)
PROC: 02HV33Z Insertion of Infusion Device into Superior Vena Cava, Percutaneous Approach (ICD-10-PCS; 2021-07-23)
PROC: 5A1955Z Respiratory Ventilation, Greater than 96 Consecutive Hours (ICD-10-PCS; 2021-07-23)
PROC: 0W9930Z Drainage of Right Pleural Cavity with Drainage Device, Percutaneous Approach (ICD-10-PCS; 2021-07-24)
PROC: 03HC33Z Insertion of Infusion Device into Left Radial Artery, Percutaneous Approach (ICD-10-PCS; 2021-08-03)
PROC: 05HN33Z Insertion of Infusion Device into Left Internal Jugular Vein, Percutaneous Approach (ICD-10-PCS; 2021-08-04)
PROC: 30233N1 Transfusion of Nonautologous Red Blood Cells into Peripheral Vein, Percutaneous Approach (ICD-10-PCS; 2021-08-09)
DX: U07.1 COVID-19 (principal); E66.01 Morbid (severe) obesity due to excess calories; J96.01 Acute respiratory failure with hypoxia; J12.82 Pneumonia due to coronavirus disease 2019; Z66 Do not resuscitate; J98.2 Interstitial emphysema; J93.83 Other pneumothorax; Z68.43 Body mass index [BMI] 50.0-59.9, adult; J93.82 Other air leak; R73.9 Hyperglycemia, unspecified; J18.9 Pneumonia, unspecified organism; A41.9 Sepsis, unspecified organism; R65.21 Severe sepsis with septic shock; N17.9 Acute kidney failure, unspecified; E87.5 Hyperkalemia; B96.89 Other specified bacterial agents as the cause of diseases classified elsewhere; D64.9 Anemia, unspecified; L98.419 Non-pressure chronic ulcer of buttock with unspecified severity; E87.0 Hyperosmolality and hypernatremia; E88.09 Other disorders of plasma-protein metabolism, not elsewhere classified; E78.1 Pure hyperglyceridemia; N39.0 Urinary tract infection, site not specified; K76.0 Fatty (change of) liver, not elsewhere classified; J96.02 Acute respiratory failure with hypercapnia; I24.8 Other forms of acute ischemic heart disease; G93.1 Anoxic brain damage, not elsewhere classified; I46.9 Cardiac arrest, cause unspecified